=== PATIENT | female | born 1950 | race Caucasian/White ===

== ENCOUNTER 2019-05-11 06:00 | Outpatient (RCR) | payer MEDICARE, SELFPAY | END 2019-06-10 00:01 | LOC: SPT 06:00 | PROVIDERS: Family Provider Family Medicine; Visit Provider Nurse Practitioner Adult Health | DX: Z47.1 Aftercare following joint replacement surgery (principal); Z96.652 Presence of left artificial knee joint | CPT/HCPCS: 97110 ×3 ==

== ENCOUNTER 2019-06-11 06:00 | Outpatient (RCR) | payer MEDICARE, SELFPAY | END 2019-07-11 23:59 | disposition home or self-care (01) | LOC: SPT 06:00 | PROVIDERS: Family Provider Family Medicine; Visit Provider Nurse Practitioner Adult Health | DX: M17.11 Unilateral primary osteoarthritis, right knee (principal) | CPT/HCPCS: 97110 ==

== ENCOUNTER 2019-06-24 15:47 | Outpatient (CLI) | payer MEDICARE, SELFPAY ==
[2019-06-24 18:03] LABS: INR 2.28 (0.8-1.2)
== END 2019-06-24 15:48 | disposition home or self-care (01) ==
LOC: ONCMED 15:47
PROVIDERS: Family Provider Family Medicine; Visit Provider Internal Medicine Medical Oncology
DX: Z51.81 Encounter for therapeutic drug level monitoring (principal); Z79.01 Long term (current) use of anticoagulants
CPT/HCPCS: 36415; 85610

== ENCOUNTER 2019-07-29 01:31 | Emergency (ER) | payer MEDICARE, SELFPAY ==
[2019-07-29 02:28] VITALS: BP 168/89; PULSE 72; RESP 16; TEMP 37; O2SAT 96; BMI 31.1
--- NOTE | 2019-07-29 02:41 | ED_ITS ---
Documented by User: KADY Melton 07/29/19 04:04 HPI - Skin/Abscess/Foreign Bdy General: Chief complaint: Skin/Abscess/Foreign Body Stated complaint: rash Time Seen by Provider: 07/29/19 02:23 History of Present Illness: HPI narrative: Patient is a 69-year-old female comes to the ED with a rash. Patient states that about a week ago she scratched her left forearm and some pain. It was a superficial scratch. It has been healing well but she noticed a little bit of redness around the scar and it's been a little itchy last day or 2. Patient is allergic to adhesive and she does admit to putting a Band-Aid over scratch and thinks of that could've possibly caused a little bit of itching and irritation. Currently it is not itchy at all. She denies any drainage, scratch. Patient denies any fever, chills, nausea, vomiting, shortness breath, chest pain. Associated symptoms: Deny chills, fever(s), nausea or vomiting Review of Systems Const: Denies: fever, chills or fatigue Eyes: Denies: change in vision or eye discomfort ENMT: Denies: throat pain, painful swallowing, nasal discharge or nasal congestion Card: Denies: chest pain, palpitations, edema, swelling of feet/ankles, shortness of breath on exertion or shortness of breath when lying down Resp: Denies: shortness of breath, productive cough or non-productive cough GI: Denies: abdominal pain, nausea, vomiting, diarrhea, constipation or blood in stool : Denies: flank pain, painful urination or blood in urine Musc: Denies: neck pain, back pain or extremity swelling Skin/Breast: Denies: rash or new lesion Neuro: Denies: headache, numbness in extremities or weakness in extremities PFSH ED PFSH: Social History Smoking and tobacco status: never smoked Physical Exam Narrative: EXAM NARRATIVE: Patient is a 69-year-old female who showing no signs of acute distress or pain when i entered the room. She is sitting comfortably and showing no signs of respiratory distress either Const: COMMON NORMALS: oriented x3 HENMT: COMMON NORMALS: normocephalic HEAD & SCALP: normocephalic MOUTH: oral and palatal mucosa normal THROAT: posterior oropharynx normal and uvula midline Neck/C-Spine: COMMON NORMALS: supple GENERAL: Yes normal visual inspection Resp: COMMON NORMALS: normal respiratory effort, no retractions, no use of accessory muscles and clear to auscultation bilaterally AUSCULTATION: clear to auscultation bilaterally Cardio: COMMON NORMALS: regular rate, regular rhythm, S1 normal heart sound, S2 normal heart sound, no gallops, no clicks, no murmurs and peripheral pulses 2+ throughout RATE: regular rate RHYTHM: regular rhythm HEART SOUNDS: S1 normal and S2 normal PERIPHERAL PULSES: pulses 2+ throughout GI: COMMON NORMALS: normal to inspection, nondistended, normoactive bowel sounds, soft to palpation, non-tender and no masses PALPATION: Yes soft : COMMON NORMALS: Yes no CVA tenderness BLADDER/KIDNEY EXAM: Yes no CVA tenderness Back/Pelvis: COMMON NORMALS: no CVA tenderness Extremity: COMMON NORMALS: normal to inspection Neuro: COMMON NORMALS: oriented x3 and moves all extremities Skin: NARRATIVE SKIN EXAM: Patient has a superficial scratch on her left forearm and his healing well and showing no signs of infection. It has a little erythema but no warmth. It is closed and scarring is formed. There is no drainage or open wound. TRAUMA: abrasion (Patient has a superficial scratch on left forearm that is closed and slight) Course Vital Signs: Vital signs: Vital Signs Temperature 98.2 F 07/29/19 03:15 Pulse Rate 84 07/29/19 03:15 Respiratory Rate 16 07/29/19 03:15 Blood Pressure 145/74 07/29/19 03:15 Pulse Oximetry 100 07/29/19 03:15 Discharge Plan Discharge Patient Disposition: Home, Self-Care Clinical Impression: Skin abrasion Condition: Stable Prescriptions: No Action gabapentin 300 mg capsule 300 mg PO TID Qty: 90 RF: 5 Discharge Orders: Discharge Order (Routine); Ordered 07/29/19 Ordered By: Florencio Austin Referrals: Danni Jesus MD [Primary Care Provider] - Discharge Diet: Regular Discharge Activity: Resume usual activity Patient Instructions: Abrasion Activity Restrictions/Additional Instructions: Follow-up with your PCP in 7-10 days. Continue taking all home meds. He can apply hydrocortisone cream on abrasion to help with any itching. Watch for signs of infection such as swelling, redness, warmth, drainage and fevers. Discharge Date/Time: 07/29/19 03:15 Coding Level of Care Code ED Utility Specialist for Chg Fwd Exam Comprehensive Documented by User: Marissa Nelson 07/29/19 20:23 HPI - Skin/Abscess/Foreign Bdy General: Chief complaint: Skin/Abscess/Foreign Body Stated complaint: rash Time Seen by Provider: 07/29/19 02:23 PFS ED PFSH: Social History Smoking and tobacco status: never smoked Course Vital Signs: Vital signs: Vital Signs Temperature 98.2 F 07/29/19 03:15 Pulse Rate 84 07/29/19 03:15 Respiratory Rate 16 07/29/19 03:15 Blood Pressure 145/74 07/29/19 03:15 Pulse Oximetry 100 07/29/19 03:15 MDM - Skin/Abscess/Foreign Bdy MDM Narrative: Medical decision making narrative: Patient was not seen or evaluated by me. I have not reviewed the chart. I am signing it for completion. I was available throughout the patient stay in the ER but was never consulted for care - Dr. Marissa Nelson Discharge Plan Discharge Patient Disposition: Home, Self-Care Clinical Impression: Skin abrasion Condition: Stable Prescriptions: No Action gabapentin 300 mg capsule 300 mg PO TID Qty: 90 RF: 5 Discharge Orders: Discharge Order (Routine); Ordered 07/29/19 Ordered By: Florencio Austin Referrals: Danni Jesus MD [Primary Care Provider] - Discharge Diet: Regular Discharge Activity: Resume usual activity Patient Instructions: Abrasion Activity Restrictions/Additional Instructions: Follow-up with your PCP in 7-10 days. Continue taking all home meds. He can apply hydrocortisone cream on abrasion to help with any itching. Watch for signs of infection such as swelling, redness, warmth, drainage and fevers. Discharge Date/Time: 02/18/20 03:15 Coding Level of Care Code ED Utility Specialist for Chg Fwd Exam Comprehensive
[2019-07-29 03:15] VITALS: BP 145/74; PULSE 84; RESP 16; TEMP 36.8; O2SAT 100
== END 2019-07-29 03:15 | disposition home or self-care (01) ==
PROVIDERS: Emergency Provider Physician Assistant; Family Provider Family Medicine; PCP Family Medicine
DX: S50.812A Abrasion of left forearm, initial encounter (principal); X58.XXXA Exposure to other specified factors, initial encounter; Z91.048 Other nonmedicinal substance allergy status
CPT/HCPCS: 99281

== ENCOUNTER 2019-08-05 15:05 | Outpatient (RCR) | payer MEDICARE, SELFPAY | END 2019-08-09 23:59 | disposition home or self-care (01) | LOC: SPT 15:05 | PROVIDERS: Family Provider Family Medicine; PCP Family Medicine; Referring Provider Chiropractor; Visit Provider Chiropractor | DX: M54.5 Low back pain (principal) | CPT/HCPCS: 97032; 97110; 97161 ==

== ENCOUNTER 2019-08-10 06:00 | Outpatient (RCR) | payer MEDICARE, SELFPAY | END 2019-09-09 23:59 | disposition home or self-care (01) | LOC: SPT 06:00 | PROVIDERS: Family Provider Family Medicine; PCP Family Medicine; Referring Provider Chiropractor; Visit Provider Chiropractor | DX: M54.5 Low back pain (principal) | CPT/HCPCS: 97032; 97110 ==

== ENCOUNTER 2019-08-19 15:37 | Outpatient (CLI) | payer MEDICARE, SELFPAY ==
[2019-08-19 16:21] LABS: INR 4.15 (0.8-1.2)
== END 2019-08-19 15:38 | disposition home or self-care (01) ==
LOC: ONCMED 15:37
PROVIDERS: Family Provider Family Medicine; PCP Family Medicine; Visit Provider Internal Medicine Medical Oncology
DX: Z51.81 Encounter for therapeutic drug level monitoring (principal); I82.502 Chronic embolism and thrombosis of unspecified deep veins of left lower extremity; Z79.01 Long term (current) use of anticoagulants
CPT/HCPCS: 36415; 85610

== ENCOUNTER 2019-09-10 06:00 | Outpatient (RCR) | payer MEDICARE, SELFPAY | END 2019-10-09 23:59 | disposition home or self-care (01) | LOC: SPT 06:00 | PROVIDERS: Family Provider Family Medicine; PCP Family Medicine; Referring Provider Chiropractor; Visit Provider Chiropractor | DX: M54.5 Low back pain (principal) | CPT/HCPCS: 97032; 97110 ==

== ENCOUNTER 2019-09-23 13:38 | Outpatient (CLI) | payer MEDICARE, SELFPAY ==
[2019-09-23 16:48] LABS: INR 1.87 (0.8-1.2)
== END 2019-09-23 13:39 | disposition home or self-care (01) ==
LOC: ONCMED 13:40
PROVIDERS: Family Provider Family Medicine; PCP Family Medicine; Visit Provider Internal Medicine Medical Oncology
DX: Z51.81 Encounter for therapeutic drug level monitoring (principal); Z79.01 Long term (current) use of anticoagulants
CPT/HCPCS: 36415; 85610

== ENCOUNTER 2019-10-10 06:00 | Outpatient (RCR) | payer MEDICARE, SELFPAY | END 2019-11-09 23:59 | disposition home or self-care (01) | LOC: SPT 06:00 | PROVIDERS: PCP Family Medicine; Referring Provider Chiropractor; Visit Provider Chiropractor | DX: M54.5 Low back pain (principal) | CPT/HCPCS: 97032; 97110 ==

== ENCOUNTER 2019-10-23 14:41 | Outpatient (CLI) | payer MEDICARE, SELFPAY ==
[2019-10-23 15:15] LABS: INR 1.24 (0.8-1.2)
== END 2019-10-23 14:42 | disposition home or self-care (01) ==
LOC: ONCMED 14:45
PROVIDERS: PCP Family Medicine; Visit Provider Internal Medicine Medical Oncology
DX: I82.502 Chronic embolism and thrombosis of unspecified deep veins of left lower extremity (principal); Z79.01 Long term (current) use of anticoagulants
CPT/HCPCS: 36415; 85610

== ENCOUNTER 2019-11-06 14:35 | Outpatient (CLI) | payer MEDICARE, SELFPAY ==
[2019-11-06 15:27] LABS: INR 2.02 (0.8-1.2)
== END 2019-11-06 14:36 | disposition home or self-care (01) ==
PROVIDERS: PCP Family Medicine; Visit Provider Internal Medicine Medical Oncology
DX: Z51.81 Encounter for therapeutic drug level monitoring (principal); Z79.01 Long term (current) use of anticoagulants
CPT/HCPCS: 36415; 85610

== ENCOUNTER 2019-11-11 07:17 | Emergency (ER) | payer MEDICARE, SELFPAY ==
[2019-11-11 07:26] VITALS: BMI 50.3
--- NOTE | 2019-11-11 07:30 | ED_ITS ---
HPI - Fall General: Chief Complaint: Fall Stated Complaint: fall/pain l side Time Seen by Provider: 11/11/19 07:18 Source: patient Mode of arrival: EMS Limitations: no limitations History of Present Illness: HPI Narrative: fall while in garden; slipped in wet grass and landed on left side MD complaint: fall Onset (ago): minute(s) (30) Review of Systems General: Reports: 10 or more systems reviewed and unremarkable except in HPI and below Resp: Reports: pain on inspiration Musc: Reports: limited range of motion (left side/ribs ) PFSH ED PFSH: Social History Smoking and tobacco status: never smoked Physical Exam Const: COMMON NORMALS: no acute distress, patient oriented x3, no limitations and alert GENERAL APPEARANCE: cooperative and comfortable ORIENTATION/CONSCIOUSNESS: Yes awake, Yes oriented to person, Yes oriented to place and Yes oriented to time HENMT: COMMON NORMALS: normocephalic, atraumatic, external ears normal, EAC's normal, TM's normal bilaterally and Normal external nose present HEAD & SCALP: normal to inspection, normocephalic and atraumatic FACE & SINUS: normal facial exam, sinuses nontender and face symmetric NOSE: Normal external nose present, Normal nares present and No nasal discharge present EXTERNAL EAR: Yes external ears normal EXTERNAL AUDITORY CANAL: EAC's normal TYMPANIC MEMBRANE: TM's normal bilaterally MOUTH: Normal oral and palatal mucosa present, lip normal and tongue normal THROAT: posterior oropharynx normal, tonsils normal and uvula midline Eye: COMMON NORMALS: Equal, round and reactive pupils present, EOMs intact bilaterally and conjunctivae normal GENERAL EYE: appearance normal, both eyes and all related structures and normal light reflex EYELID: eyelids normal CONJUNCTIVA: Yes conjunctivae normal PUPIL: Yes Equal, round and reactive pupils present EOM: Yes EOM abnormal DIRECT OPHTHALMOSCOPY: Yes normal light reflex Neck/C-Spine: COMMON NORMALS: full ROM, no lymphadenopathy, supple, no meningeal signs, no JVD and Thyroid normal GENERAL: Yes normal visual inspection THYROID: Thyroid normal CERVICAL SPINE: Yes cervical ROM normal and Yes normal cervical lordosis Lymph: LYMPHATIC: no lymphadenopathy noted Chest: COMMONS NORMALS: normal inspection of the chest and normal palpation of entire chest wall CHEST: Yes tenderness rib (left side) Resp: COMMON NORMALS: normal respiratory effort and clear to auscultation bilaterally AUSCULTATION: clear to auscultation bilaterally Cardio: COMMON NORMALS: no JVD, regular rate, regular rhythm, S1 normal heart sound present, S2 normal heart sound present, No gallops present (Cardio), No clicks present (Cardio), No murmurs present (Cardio), No rub (Cardio) and Peripheral pulses 2+ throughout RATE: regular rate RHYTHM: regular rhythm HEART SOUNDS: S1 normal heart sound present and S2 normal heart sound present PERIPHERAL PULSES: Peripheral pulses 2+ throughout GI: COMMON NORMALS: Normal to inspection, nondistended, normoactive bowel sounds present, Soft to palpation, non-tender and no masses PALPATION: Yes Soft to palpation : COMMON NORMALS: Yes no CVA tenderness and Yes normal external appearance BLADDER/KIDNEY EXAM: Yes no CVA tenderness Back/Pelvis: COMMON NORMALS: no CVA tenderness, thoracic and lumbar spine normal to inspection, no thoracic nor lumbar tenderness and thoraco-lumbar ROM normal Extremity: COMMON NORMALS: normal to inspection, full ROM, capillary refill normal, no joint enlargement, no clubbing, cyanosis or edema, no calf tenderness and no pedal edema GENERAL: Yes normal exam except as noted Neuro: COMMON NORMALS: patient oriented x3, moves all extremities, no focal motor deficits, no sensory deficits noted and gait normal SENSORIUM/ORIENTATION: Yes alert, Yes oriented to person, Yes oriented to place and Yes oriented to time MENINGEAL SIGNS: Yes no meningeal signs Psych: COMMON NORMALS: mental status grossly normal, Normal thought process present, cooperative, normal affect, speech normal and activity/motor behavior normal SPEECH: Yes normal speech THOUGHT PROCESS: Normal thought process present Skin: COMMON NORMALS: no rashes or lesions noted, no wounds and turgor normal GENERAL SKIN EXAM: no rashes or lesions noted and turgor normal Course ED course: Pt presents via EMS due to fall and sensation of cracking with fall in left side. She has some notable splinting with breathing due to pain. XRAY ordered and pain medications. Reevaluation(s): Reevaluation #1: 7th rib fx indicated per xray. Deep breathing exercises with splinting noted. Muscle relaxers prescribed. Will have follow up with PCP within the week for possible OT as needed. Time: 08:22 Vital Signs: Vital signs: Vital Signs Pulse Rate 69 06//20 08:17 Respiratory Rate 16 11/11/19 08:17 Blood Pressure 128/83 11/11/19 08:17 Pulse Oximetry 99 11/11/19 08:17 MDM - Fall Imaging Data^: Xray Ortho: Radiologist's impression: [facility] [address] [place] [address] XRay Report Signed Patient: Radha Vega Unit #: [id number] : 1950 Age/Sex: 69 / F ADM Date: 11/11/19 Loc: ER Room/Bed: Attending Dr: Ordering Provider/Ordering MD: Paige Horton NP Date of Service: 11/11/19 Procedure(s): XR ribs LT 2V* [id number] Accession Number(s): [id number] Report Number: [id number] WS: [id number] XR ribs LT 2V* [id number] REASON FOR EXAM: fall FINDINGS: Left rib study 4 views No pneumothorax or pleural reaction. The alignment of the left ribs show the seventh rib at its angle shows a defect consistent with a nondisplaced fracture. XR/XR ribs LT 2V* [id number] IMPRESSION: Fracture of the seventh rib at its angle. Dictated By: Luiz Nice DO Signed By: Luiz Nice DO Signed Date/Time: 11/11/19804 DD/ 0803 Discharge Plan Discharge Patient Disposition: Home, Self-Care Clinical Impression: Fracture of rib Condition: Stable Prescriptions: New cyclobenzaprine 10 mg tablet 10 mg PO Q8H Qty: 20 RF: 0 No Action gabapentin 300 mg capsule 300 mg PO TID Qty: 90 RF: 5 lamotrigine [Lamictal] 200 mg tablet 200 mg PO BID Qty: 315 RF: 5 warfarin 10 mg tablet RF: 0 Referrals: Danni Jesus MD [Primary Care Provider] - Discharge Diet: Advance as tolerated Discharge Activity: Increase activity as tolerated Activity Restrictions/Additional Instructions: Splinting with pillow, deep breathing exercises. Follow up with Primary Doctor within week. Coding Level of Care Code ED Custom Ski Maker for Chg Fwd Exam Comprehensive
--- NOTE | 2019-11-11 07:37 | XR_ITS ---
WS: [id number] XR ribs LT 2V* [id number] REASON FOR EXAM: fall FINDINGS: Left rib study 4 views No pneumothorax or pleural reaction. The alignment of the left ribs show the seventh rib at its angle shows a defect consistent with a non displaced fracture. XR/XR ribs LT 2V* [id number] IMPRESSION: Fracture of the seventh rib at its angle.
[2019-11-11] MEDS: orphenadrine 30 mg/mL Inj 2 mL 60 MG IM (08:15)
[2019-11-11] MEDS: ketorolac 30 mg/mL INJ IM (08:15)
[2019-11-11 08:17] VITALS: BP 128/83; PULSE 69; RESP 16; O2SAT 99
[2019-11-11 08:44] VITALS: BP 142/78; PULSE 68; RESP 20; O2SAT 97
== END 2019-11-11 08:38 | disposition home or self-care (01) ==
PROVIDERS: Emergency Provider Nurse Practitioner Family; PCP Family Medicine
DX: S22.32XA Fracture of one rib, left side, initial encounter for closed fracture (principal); W01.0XXA Fall on same level from slipping, tripping and stumbling without subsequent striking against object, initial encounter
CPT/HCPCS: 12345; 71100; 96372; 99282; 99283; J1885; J2360

== ENCOUNTER 2019-12-01 12:51 | Outpatient (CLI) | payer MEDICARE, SELFPAY ==
[2019-12-01 13:25] LABS: Basophils % 0.3 %; Eosinophils # 0.4 10^3/uL (0.0-0.8); Eosinophils % 5.5 %; Hematocrit 38.8 % (37.0-47.0); Hemoglobin 12.2 g/dL (11.5-15.3); Lymphocytes # 0.9 10^3/uL (0.8-4.8); Lymphocytes % 11.9 %; Mean Corpuscular HGB Conc 31.4 g/dL (30.0-36.0); Mean Corpuscular Hemoglobin 29.8 pg (28.0-34.0); Mean Corpuscular Volume 94.6 fL (81-99); Mean Platelet Volume 9.5 fL (7.4-10.4); Monocytes # 0.6 10^3/uL (0.2-0.9); Monocytes % 7.7 %; Neutrophils # 5.3 10^3/uL (1.8-7.7); Nucleated Red Blood Cells % 0 %; Platelet Count 277 10^3/cmm (130-400); Red Cell Distribution Width 15.5 % (12.1-15.1); White Blood Count 7.2 10^3/uL (4.0-10.0)
[2019-12-01 13:31] LABS: INR 3.48 (0.8-1.2)
[2019-12-01 13:38] LABS: Alanine Aminotransferase 18 U/L (0-33); Alkaline Phosphatase 99 IU/L (35-105); Anion Gap 17.1 (5-19); Aspartate Amino Transferase 19 U/L (0-32); Blood Urea Nitrogen 12 mg/dL (8-23); Calcium 9.7 mg/dL (8.5-10.5); Carbon Dioxide 25 mmol/L (22-29); Chloride 103 mmol/L (98-107); Globulin 3.6 g/dL (1.3-4.6); Glomerular Filtration Rate 70.9 mL/min (90-130); Glucose 98 mg/dL (65-115); Osmolality Calculated 288 mOsm/kg (285-295); Potassium 4.1 mmol/L (3.5-5.1); Sodium 141 mmol/L (136-145); Total Bilirubin 0.3 mg/dL (0.15-1.2); Total Protein 7.6 g/dL (6.6-8.7)
--- NOTE | 2019-12-05 06:47 | ONC FU_ITS ---
Dr. Sharma Patient Follow-Up Note Patient: Radha Vega Unit #: [id number]: 1950 Dicatated By: Brendan Sharma M.D.Date of Visit:Dec 01, 2019 Onc Med Follow-up/Prog Note Chief Complaint: Recurrent thrombosis. History of Present Illness: This is a 69 year-old woman with recurrent deep vein thrombosis. She has a history of recurrent deep vein thrombosis. She had blood clots in her left leg in 1994, 1995, and in 1999. She indicated that she was found to have protein C or S deficiency (she couldn't remember which), though I could find no actual documentation of it in the available records. I had seen her initially on 02/07/2016 because she was having difficulty with her warfarin management. Her main complaint at that time was that she had been having difficulty with her left knee. She had originally undergone partial knee replacement in 2007. She then underwent revision to a total knee arthroplasty in June 2011. She required replacement of the joint again in November 2014, reportedly because of osteomyelitis. She had recovered gradually following that procedure. During that time she had continued anticoagulation with warfarin. However, her protimes had fluctuated significantly, and her INR frequently was subtherapeutic. Despite that she had no further thrombosis, and she experienced no bleeding complications. I reviewed options for her further anticoagulation, and she preferred to just continue with the warfarin. Following her visit in January 2016 her warfarin dosage was adjusted upward, and her subsequent INRs had mostly been in therapeutic range. Her medical history, in addition to recurrent thrombosis, includes hypertension, trigeminal neuralgia, and degenerative arthritis. In February 2018 she underwent left total knee arthroplasty. She had no bleeding or thrombotic complications with that procedure. She has only a minimal smoking history, and she quit smoking in 1989. INTERIM HISTORY: She is seen for a scheduled visit. She has been feeling pretty good generally, though recently she has noticed a little more bruising. She has been having pain in her back and in her left rib cage associated with a recent fall. She apparently suffered a fractured left seventh rib. Her energy level is generally pretty good, and she otherwise has mostly normal activity. Her ECOG score is 0. She has good appetite. She has not had fever. She sometimes is aware that she has had sweating during the night. She does not complain of shortness of breath or cough, and she otherwise has not had chest pain. She has no GI or complaints. She has some arthritis in her hands and feet. She has no focal neurologic symptoms, but she has noticed that she has had some shaking in her hands, particularly when she is holding a heavier object. Medications: Biotin 1 Tablet (of 5000 mcg) Capsule Oral daily, Calcium + D Tablet Oral daily, Coumadin (12.5 mg) Oral Take as Directed, Gabapentin (300 mg) Capsule Oral Take as Directed, LaMICtal (200 mg) Tablet Oral Take as Directed, Magnesium 1 Capsule Oral daily, Multivitamin Adult 1 Tablet Oral daily Allergies: Adhesive Tape and Codeine Sulfate. Review of Systems: Constitutional - She energy is good. She has mostly normal activity. Her appetite is good and weight is stable. No fever. She has been waking up in the mornings and feels like she's been sweating through the night. ECOG score is 0, ENMT - She has seasonal allergies. No mouth sores. No sore throat or difficulty swallowing, Hematologic/Lymphatic - She bruises easily, Respiratory - No shortness of breath. No cough. No pleuritic pain or hemoptysis, Cardiovascular - No angina pain. No palpitations, Gastrointestinal - No nausea or vomiting. No heartburn or acid reflux. No diarrhea or constipation. No blood in the stool or black stools, Genitourinary (F) - No dysuria or hematuria. No urinary frequency. No urgency or incontinence, Musculoskeletal - She has pain in her left rib area and in her lower back from a fall. She has some arthritis in her hands and feet, Integumentary - No skin complications, Neurologic - No headache or dizziness. No numbness or tingling. She is having shaking in her hands, which she notices mainly when she is holding something in her hands, Psychiatric - No anxiety. She is seeing a therapist for depression. No insomnia. Vital Signs: Performed on Dec 01, 2019 15:19 Height - 62.00 in Weight - 274.8 lbs (HIGH) BSA - 2.19 sq.m BMI - 50.26 (HIGH) Temperature - 98.0 F (LOW) Pulse - 81 /min Respiration - 24 /min BP - 137/68 mm(hg) O2 Sat - 97 % Pain - 2 Physical Examination: Constitutional - She looks pretty good generally, Eyes - Sclerae nonicteric. Conjunctivae clear, ENMT - No lesions noted in the oral cavity, Hematologic/Lymphatic - No cervical, clavicular, or axillary adenopathy, Respiratory - Lungs are clear with good air movement bilaterally, Cardiovascular - Heart rhythm is regular. There is no murmur, gallop, or rub noted, Abdomen - Distended. Liver and spleen are not enlarged. There is no abdominal mass or ascites noted and there is no inguinal adenopathy, Extremities - There are venous stasis changes bilaterally, worse on the left. There is no edema, Neurologic - No focal neurologic deficits noted. Lab/Imaging: Test performed on Dec 01, 2019 13:02 Sodium 141 mmol/L Potassium 4.1 mmol/L Chloride 103 mmol/L CO2 25 mmol/L Anion Gap 17.1 BUN 12 mg/dL Creatinine 0.8 mg/dL Cr Clearance (Est) 128.76 mL/min eGFR 70.9 mL/min Glucose 98 mg/dL Calcium 9.7 mg/dL Protein, Total 7.6 g/dL Albumin 4.0 g/dL Globulin 3.6 g/dL Bilirubin, Total 0.3 mg/dL ALT (SGPT) 18 U/L AST (SGOT) 19 U/L Alkaline Phosphatase 99 IU/L PT 36.30 SECONDS WBC 7.2 10 3/uL INR 3.48 RBC 4.10 10 6/uL HGB 12.2 g/dL HCT 38.8 % MCV 94.6 fL MCH 29.8 pg MCHC 31.4 g/dL RDW 15.5 % Platelet Count 277 10 3/cmm MPV 9.5 fL Neutrophils 5.3 10 3/uL Lymphocytes 0.9 10 3/uL Monocytes 0.6 10 3/uL Eosinophils 0.4 10 3/uL Basophils 0.0 10 3/uL Neutrophil % 74.0 % Lymphocyte % 11.9 % Monocyte % 7.7 % Eosinophil % 5.5 % Basophils % 0.3 % NRBC % 0 % Impression: 1. Patient with recurrent episodes of deep vein thrombosis, all apparently involving the left leg. 2. She has been on chronic anticoagulation with warfarin, but her management has been complicated by inconsistent protimes. However, she has had no recent thrombosis and no bleeding complications. 3. She indicated that she has protein C or protein S deficiency, but I found no supporting documentation in the available records. 4. She has undergone mulitple surgeries on the left knee, reportedly for osteomyelitis complicating a revision to a total knee arthroplasty in June 2011. 5. She underwent placement of an inferior vena cava filter prior to knee surgery in June 2011. Her other medical illnesses include: 6. Hypertension. 7. Degenerative arthritis. 8. Trigeminal neuralgia. 9. She has mild anemia. During follow-up she has remained on anticoagulation with warfarin. Her pro times have mostly been therapeutic, and thus far she has had no further thromboembolism. 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 She also had a recent left rib fracture in association with a fall. She has otherwise been stable clinically. Plan: She continues anticoagulation with warfarin. Pro times will be monitored monthly and her dosage will be adjusted accordingly. I will see her again in one year. In the meantime, she is let me know if the tremor is getting worse. Signed By: Brendan Sharma M.D. <<Signature on File>>
== END 2019-12-01 12:52 | disposition home or self-care (01) ==
LOC: ONCMED 12:55
PROVIDERS: PCP Family Medicine; Visit Provider Internal Medicine Medical Oncology
DX: Z86.718 Personal history of other venous thrombosis and embolism (principal); Z79.01 Long term (current) use of anticoagulants; D64.9 Anemia, unspecified; G25.2 Other specified forms of tremor; S22.32XD Fracture of one rib, left side, subsequent encounter for fracture with routine healing; W19.XXXD Unspecified fall, subsequent encounter; I10 Essential (primary) hypertension; M19.90 Unspecified osteoarthritis, unspecified site; G50.0 Trigeminal neuralgia
CPT/HCPCS: 80053; 85025; 85610; 99214

== ENCOUNTER → 2019-12-02 09:04 | Outpatient (BNVA) | payer MEDICARE, SELFPAY | PROVIDERS: Visit Provider Specialist | DX: G50.0 Trigeminal neuralgia (principal); R29.90 Unspecified symptoms and signs involving the nervous system | CPT/HCPCS: 99212; 99213 ==

== ENCOUNTER 2019-12-04 13:44 | Outpatient (CLI) | payer MEDICARE, SELFPAY | END 2019-12-04 13:45 | disposition home or self-care (01) | PROVIDERS: Visit Provider Specialist | DX: G50.0 Trigeminal neuralgia (principal) | CPT/HCPCS: 36415; 80175 ==

== ENCOUNTER 2020-01-06 13:55 | Outpatient (CLI) | payer MEDICARE, SELFPAY ==
[2020-01-06 15:01] LABS: INR 1.99 (0.8-1.2)
== END 2020-01-06 13:56 | disposition home or self-care (01) ==
LOC: ONCMED 14:02
PROVIDERS: Visit Provider Internal Medicine Medical Oncology
DX: Z51.81 Encounter for therapeutic drug level monitoring (principal); Z79.899 Other long term (current) drug therapy; Z86.718 Personal history of other venous thrombosis and embolism
CPT/HCPCS: 85610

== ENCOUNTER 2020-01-06 14:03 | Outpatient (CLI) | payer MEDICARE, SELFPAY ==
[2020-01-06 14:51] LABS: Basophils % 0.5 %; Eosinophils # 0.3 10^3/uL (0.0-0.8); Eosinophils % 3.9 %; Hematocrit 38.2 % (37.0-47.0); Hemoglobin 11.9 g/dL (11.5-15.3); Lymphocytes # 0.9 10^3/uL (0.8-4.8); Lymphocytes % 13.7 %; Mean Corpuscular HGB Conc 31.2 g/dL (30.0-36.0); Mean Corpuscular Hemoglobin 29.2 pg (28.0-34.0); Mean Corpuscular Volume 93.9 fL (81-99); Mean Platelet Volume 9.9 fL (7.4-10.4); Monocytes # 0.5 10^3/uL (0.2-0.9); Monocytes % 8.4 %; Neutrophils # 4.69 10^3/uL (1.8-7.7); Nucleated Red Blood Cells % 0 %; Platelet Count 274 10^3/cmm (130-400); Red Blood Count 4.07 10^6/uL (4.1-5.3); Red Cell Distribution Width 15.3 % (12.1-15.1); White Blood Count 6.4 10^3/uL (4.0-10.0)
[2020-01-06 15:36] LABS: Alanine Aminotransferase 14 U/L (0-33); Albumin Level 4.1 g/dL (3.5-5.2); Alkaline Phosphatase 81 IU/L (35-105); Anion Gap 15.1 (5-19); Aspartate Amino Transferase 18 U/L (0-32); Blood Urea Nitrogen 16 mg/dL (8-23); Calcium 9.4 mg/dL (8.5-10.5); Carbon Dioxide 24 mmol/L (22-29); Chloride 104 mmol/L (98-107); Chol HDL Ratio 4.07 mg/dL (0.0-4.40); Cholesterol 175 mg/dL (0-200); Free T4 Free Thyroxine 1.08 ng/dL (0.82-1.77); Globulin 3.2 g/dL (1.3-4.6); Glucose 85 mg/dL (65-115); HDL Cholesterol 43 mg/dL (60-100); LDL Cholesterol Calculated 106 mg/dL (50-129); LDL HDL Ratio 2.47 RATIO (0.00-3.22); Osmolality Calculated 284 mOsm/kg (285-295); Potassium 4.1 mmol/L (3.5-5.1); Sodium 139 mmol/L (136-145); Total Bilirubin 0.2 mg/dL (0.15-1.2); Total Protein 7.3 g/dL (6.6-8.7); Triglycerides 131 mg/dL (0-150)
[2020-01-06 17:11] LABS: Estmated Average Glucose 120; Hemoglobin A1C 5.8 % (4.0-6.0)
== END 2020-01-06 14:04 | disposition home or self-care (01) ==
LOC: LAB 14:06
PROVIDERS: Visit Provider Internal Medicine
DX: R73.9 Hyperglycemia, unspecified (principal); E78.5 Hyperlipidemia, unspecified; R53.83 Other fatigue
CPT/HCPCS: 80053; 80061; 83036; 84439; 84443; 85025

== ENCOUNTER 2020-03-04 09:54 | Outpatient (CLI) | payer MEDICARE, SELFPAY ==
--- NOTE | 2020-03-04 10:13 | MM_ITS ---
WS: [id number] SCREENING DIGITAL MAMMOGRAM WITH CAD HISTORY: SCREEN COMPARISON: 03/05/2017 and 06/23/2015 Bilateral CC and MLO views submitted. Computer aided detection analyzed. Breast composition: There are scattered areas of fibroglandular density. High density nodule in the a nterior RIGHT breast near the 3:00 axis is new since the prior examination. There are additional scat tered nodules throughout each breast which are stable. Benign lymph nodes in the axilla. MM/[place] [id number] IMPRESSION: BI-RADS: 0-Incomplete: Need additional imaging evaluation FOLLOW UP: Need Additional Imaging RIGHT breast: Spot compression views (CC and MLO). True ML. Ultrasound to follo w if abnormality persists.
[2020-03-04 11:10] LABS: INR 3.43 (0.8-1.2)
== END 2020-03-04 09:55 | disposition home or self-care (01) ==
PROVIDERS: PCP Internal Medicine; Visit Provider Internal Medicine Medical Oncology
DX: Z12.31 Encounter for screening mammogram for malignant neoplasm of breast (principal); Z79.01 Long term (current) use of anticoagulants; N63.12 Unspecified lump in the right breast, upper inner quadrant
CPT/HCPCS: 36415; 77067; 85610

== ENCOUNTER 2020-03-11 11:16 | Outpatient (CLI) | payer MEDICARE, SELFPAY ==
--- NOTE | 2020-03-11 11:20 | US_ITS ---
WS: [id number] ADDITIONAL VIEWS RIGHT BREAST RIGHT breast ultrasound, limited HISTORY: ABNORMAL MAMMOGRAM COMPARISON: 03/04/2020, 03/05/2017 Compression views right CC and MLO projection. True ML also submitted. Persistent lobulated mass central to the nipple measures 7 mm. Mass is of increased density in the an terior breast. Ultrasound to follow. RIGHT breast ultrasound, limited. At the 1:00 axis, 1 cm from the nipple is a lobulated soft tissue mass measuring 6 x 5 x 5 mm. Corres ponds to the mammographic abnormality. There is an additional small cyst at 3:00. US/US breast RT limited* [id number] IMPRESSION: BI-RADS: 4-Suspicious Finding-Biopsy Should Be Considered FOLLOW-UP: Biopsy Recommended Ultrasound-guided biopsy recommended of the lobulated soft tissue mass 1:00, 1 cm from the nipple.
== END 2020-03-11 11:17 | disposition home or self-care (01) ==
LOC: ONCMED 11:16
PROVIDERS: PCP Internal Medicine; Visit Provider Internal Medicine Medical Oncology
DX: N60.01 Solitary cyst of right breast (principal)
CPT/HCPCS: 76642; 77065

== ENCOUNTER 2020-03-22 11:36 | Outpatient (CLI) | payer MEDICARE, SELFPAY ==
--- NOTE | 2020-03-22 11:44 | US_ITS ---
WS: [id number] ULTRASOUND-GUIDED RIGHT BREAST BIOPSY HISTORY: BREAST MASS, 1:00. COMPARISON: 03/11/2020, 03/04/2020. Procedure, risks and complications are explained to the patient. Medications are reviewed. Consent is obtained. The mass in the RIGHT breast is localized with ultrasound. Mass localizes to 1:00, 1 cm from the nipp le. Skin is cleansed with ChloraPrep and anesthetized with 1% buffered lidocaine. Small dermatome is made. Under sterile conditions mass is biopsied with a 14-gauge Achieve needle. Multiple core biopsie s are performed. Material placed in formalin and sent to pathology for review. No complications encou ntered. Breast tissue marker (Bard ultrasound enhanced ribbon): Single. Patient left the radiology suite with no complications. [place] is instructed [place] [facility] [facility] with any concerns. Note: Biopsy sampling is appropriate. Pathology report indicates correlation with imaging findings an d possible additional sampling if there is concern. This is a solid mass. As the imaging and patholog ical findings are not conclusive suggest 6 month RIGHT breast diagnostic follow-up. Alternatively, lo calization and surgical removal may also be performed. US/[place] [id number] IMPRESSION: 1. Uncomplicated core needle biopsy RIGHT breast mass at 1:00. PATHOLOGY: Usual ductal hyperplasia and apocrine metaplasia. No invasive carcin slade or ductal carcinoma in situ. RECOMMENDATION: 6 months diagnostic mammogram and ultrasound follow-up.
== END 2020-03-22 11:37 | disposition home or self-care (01) ==
LOC: RAD 11:41
PROVIDERS: PCP Internal Medicine; Visit Provider Internal Medicine
DX: N63.12 Unspecified lump in the right breast, upper inner quadrant (principal)
CPT/HCPCS: 19083; 88305

== ENCOUNTER 2020-04-03 10:35 | Emergency (ER) | payer MEDICARE, SELFPAY ==
[2020-04-03 11:46] VITALS: BP 164/117; PULSE 84; RESP 18; TEMP 36.5; O2SAT 96; BMI 52.7
--- NOTE | 2020-04-03 13:37 | ED_ITS ---
HPI - General Adult General: Chief complaint: General Medical Stated complaint: Nerve Pain/Trigeminal Nerve Time Seen by Provider: 04/03/20 13:18 History of Present Illness: HPI narrative: Patient is a 70-year-old female comes to the ED with trigeminal neuralgia on the right side of face. Patient says she has had this in the past. It started 7 days ago. Patient takes gabapentin, Lamictal to help with trigeminal neuralgia. She just started taking prescription of methylprednisone Dosepak today. Pain is located on the right side of face maxillary and mandible area of jaw. He says that tender to the touch. She describes the pain as sharp and rates it a 10 out of 10. She says over the last 24 hours pain has gotten worse. She says the pain is so intense that she cannot open her mouth and take her pills. Patient would like something to help take edge off of pain to allow her to take her medications orally. Denies any problems breathing, airway obstruction, throat pain or swelling in the throat. Associated symptoms: Deny chest pain, dyspnea, headache(s), nausea, rash, palpitations or vomiting Review of Systems Const: Denies: fever(s), chills or fatigue Eyes: Denies: change in vision or eye discomfort ENMT: Reports: sinus pain (Right side of face over maxillary and mandible region.); Denies: throat pain, odynophagia, nasal discharge or nasal congestion Card: Denies: chest pain, palpitations, edema, swelling of feet/ankles, dyspnea on exertion or orthopnea Resp: Denies: dyspnea, productive cough or non-productive cough GI: Denies: abdominal pain, nausea, vomiting, diarrhea, constipation or hematochezia : Denies: flank pain, dysuria or hematuria Musc: Denies: neck pain, back pain or extremity swelling Skin/Breast: Denies: rash or new lesions Neuro: Reports: other (trigeminal Neuralgia pain on Right side of face.); Denies: headache(s), numbness in extremities or weakness in extremities PFSH ED PFSH: Social History Smoking and tobacco status: former smoker Quit status (tobacco): has quit using tobacco Year quit tobacco: 1970 Second hand smoke exposure: Yes Alcohol intake: current Alcohol intake frequency: holidays/special occasions only History of recent travel: No Physical Exam Const: COMMON NORMALS: no acute distress, patient oriented x3 and alert GENERAL APPEARANCE: cooperative; not comfortable (Patient appeared in some pain and discomfort to to right face pain.) HENMT: COMMON NORMALS: normocephalic HEAD & SCALP: normocephalic FACE & SINUS: other (Patient has facial tenderness along maxillary mandible region of face. Pain is described as sharp when touched. No erythema warmth or rash seen over right side of face) MOUTH: Normal oral and palatal mucosa present THROAT: posterior oropharynx normal and uvula midline Neck/C-Spine: COMMON NORMALS: supple GENERAL: Yes normal visual inspection Resp: COMMON NORMALS: normal respiratory effort, No retractions, No use of accessory muscles and clear to auscultation bilaterally AUSCULTATION: clear to auscultation bilaterally Cardio: COMMON NORMALS: regular rate, regular rhythm, S1 normal heart sound present, S2 normal heart sound present, No gallops present (Cardio), No clicks present (Cardio), No murmurs present (Cardio) and Peripheral pulses 2+ throughout RATE: regular rate RHYTHM: regular rhythm HEART SOUNDS: S1 normal heart sound present and S2 normal heart sound present PERIPHERAL PULSES: Peripheral pulses 2+ throughout GI: COMMON NORMALS: Normal to inspection, nondistended, normoactive bowel sounds present, Soft to palpation, non-tender and no masses PALPATION: Yes Soft to palpation : COMMON NORMALS: Yes no CVA tenderness BLADDER/KIDNEY EXAM: Yes no CVA tenderness Back/Pelvis: COMMON NORMALS: no CVA tenderness Extremity: COMMON NORMALS: normal to inspection Neuro: COMMON NORMALS: patient oriented x3 and moves all extremities SENSORIUM/ORIENTATION: Yes alert Skin: GENERAL SKIN EXAM: dry skin Course Vital Signs: Vital signs: Vital Signs Temperature 97.7 F 04/03/20 11:46 Pulse Rate 84 04/03/20 11:46 Respiratory Rate 18 04/03/20 14:36 Blood Pressure 164/117 04/03/20 11:46 Pulse Oximetry 96 04/03/20 11:46 MDM - General Adult MDM Narrative: Medical decision making narrative: Patient is a 70-year-old female who comes to the ED with right side of face pain. Patient has a past medical history of trigeminal neuralgia and sees Dr. Marie for management. Patient takes gabapentin, Lamictal for trigeminal neuralgia. She just started Medrol Dosepak yesterday to help treat the trigeminal neuralgia. Patient comes in to the ED today because pain is preventing her from opening and her mouth and swallowing her pills. She needed something to help take the edge off of pain. Patient was given a 4 mg shot of IM morphine and her pain improved. She was able to take her meds p.o. and she was discharged. Return to ED precautions given. Follow-up with PCP in 7 to 10 days. Patient understood and agreed with plan. Discharge Plan Discharge Patient Disposition: Home Clinical Impression: Trigeminal neuralgia of right side of face Condition: Stable Prescriptions: No Action calcium carbonate [Calcium 600] 600 mg calcium (1,500 mg) tablet 600 mg PO DAILY RF: 0 magnesium 250 mg tablet 250 mg PO DAILY RF: 0 biotin 1 mg capsule 1 mg PO DAILY RF: 0 lamotrigine [Lamictal] 200 mg tablet 200 mg PO .COMPLEX Qty: 225 RF: 3 gabapentin 300 mg capsule 300 mg PO TID Qty: 300 RF: 3 gabapentin 300 mg capsule 300 mg PO TID 90 Days Qty: 360 RF: 3 warfarin 10 mg tablet RF: 0 cyclobenzaprine 10 mg tablet 10 mg PO Q8H Qty: 20 RF: 0 Discharge Orders: Discharge Order (Routine); Ordered 04/03/20 Ordered By: Florencio Austin Referrals: Deedee Hernandes DO [Primary Care Provider] - Discharge Diet: Regular Discharge Activity: Increase activity as tolerated Patient Instructions: Trigeminal Neuralgia (ED) Activity Restrictions/Additional Instructions: Follow-up with medical provider as directed in 5 to 7 days. Continue taking your home medications as previously prescribed. Return to the ER or your medical provider if condition worsens. Please read and understand discharge instructions. If any questions, please ask. Discharge Date/Time: 04/03/20 14:43 Coding Level of Care Code ED Windows [employer] for Lakesha Fwvishnu Exam Comprehensive
[2020-04-03 14:36] VITALS: RESP 18
[2020-04-03] MEDS: morphine 4 mg/mL SDV 1 mL IM (14:36)
== END 2020-04-03 14:43 | disposition home or self-care (01) ==
PROVIDERS: Emergency Provider Physician Assistant; PCP Internal Medicine
DX: G50.0 Trigeminal neuralgia (principal); Z79.01 Long term (current) use of anticoagulants; Z87.891 Personal history of nicotine dependence
CPT/HCPCS: 12345; 96372; 99281; 99283; J2270

== ENCOUNTER → 2020-04-21 09:24 | Outpatient (BNVA) | payer MEDICARE, SELFPAY | PROVIDERS: PCP Internal Medicine; Visit Provider Specialist | DX: G50.0 Trigeminal neuralgia (principal); Z87.891 Personal history of nicotine dependence | CPT/HCPCS: 99214; 99215 ==

== ENCOUNTER → 2020-05-13 11:20 | Outpatient (BNVA) | payer MEDICARE, SELFPAY | PROVIDERS: PCP Internal Medicine; Visit Provider Specialist | DX: G43.711 Chronic migraine without aura, intractable, with status migrainosus (principal); G50.0 Trigeminal neuralgia; Z87.891 Personal history of nicotine dependence | CPT/HCPCS: 64615; 99214 ==

== ENCOUNTER 2020-05-18 14:59 | Outpatient (CLI) | payer MEDICARE, SELFPAY ==
[2020-05-18 15:44] LABS: INR 1.64 (0.8-1.2)
[2020-05-18 17:20] LABS: Carbamazepine Tegretol 9.8 ug/mL (4.0-12.0)
== END 2020-05-18 15:00 | disposition home or self-care (01) ==
LOC: ONCMED 15:02
PROVIDERS: PCP Internal Medicine; Visit Provider Specialist
DX: Z51.81 Encounter for therapeutic drug level monitoring (principal); Z79.01 Long term (current) use of anticoagulants; G50.0 Trigeminal neuralgia
CPT/HCPCS: 36415; 80156; 85610

== ENCOUNTER 2020-05-26 15:24 | Outpatient (CLI) | payer MEDICARE, SELFPAY ==
[2020-05-26 16:17] LABS: Basophils % 0.3 %; Eosinophils # 0.3 10^3/uL (0.0-0.8); Eosinophils % 4.4 %; Hematocrit 39.5 % (37.0-47.0); Hemoglobin 12.4 g/dL (11.5-15.3); Lymphocytes # 0.9 10^3/uL (0.8-4.8); Lymphocytes % 12.9 %; Mean Corpuscular HGB Conc 31.4 g/dL (30.0-36.0); Mean Corpuscular Hemoglobin 29.7 pg (28.0-34.0); Mean Corpuscular Volume 94.5 fL (81-99); Mean Platelet Volume 9.8 fL (7.4-10.4); Monocytes # 0.5 10^3/uL (0.2-0.9); Neutrophils # 4.93 10^3/uL (1.8-7.7); Neutrophils % 75.1 %; Nucleated Red Blood Cells % 0 %; Platelet Count 260 10^3/cmm (130-400); Red Blood Count 4.18 10^6/uL (4.1-5.3); White Blood Count 6.6 10^3/uL (4.0-10.0)
[2020-05-26 16:29] LABS: Alanine Aminotransferase 16 U/L (0-33); Anion Gap 13.2 (5-19); Blood Urea Nitrogen 15 mg/dL (8-23); Calcium 9.9 mg/dL (8.5-10.5); Carbon Dioxide 28 mmol/L (22-29); Chloride 103 mmol/L (98-107); Glucose 96 mg/dL (65-115); Osmolality Calculated 291 mOsm/kg (285-295); Potassium 4.2 mmol/L (3.5-5.1); Sodium 140 mmol/L (136-145)
[2020-05-26 17:23] LABS: Carbamazepine Tegretol 9.7 ug/mL (4.0-12.0)
== END 2020-05-26 15:25 | disposition home or self-care (01) ==
LOC: LAB 15:30
PROVIDERS: PCP Internal Medicine; Visit Provider Specialist
DX: G50.0 Trigeminal neuralgia (principal)
CPT/HCPCS: 36415; 80048; 80156; 84460; 85025

== ENCOUNTER → 2020-05-27 11:07 | Outpatient (BNVA) | payer MEDICARE, SELFPAY | PROVIDERS: PCP Internal Medicine; Visit Provider Specialist | DX: G50.0 Trigeminal neuralgia (principal); Z87.891 Personal history of nicotine dependence | CPT/HCPCS: 99214 ==

== ENCOUNTER 2020-06-21 14:56 | Outpatient (CLI) | payer MEDICARE, SELFPAY ==
[2020-06-21 15:57] LABS: INR 1.27 (0.8-1.2)
== END 2020-06-21 14:57 | disposition home or self-care (01) ==
LOC: ONCMED 15:00
PROVIDERS: PCP Internal Medicine; Visit Provider Internal Medicine Medical Oncology
DX: Z51.81 Encounter for therapeutic drug level monitoring (principal); Z79.01 Long term (current) use of anticoagulants
CPT/HCPCS: 36415; 85610

== ENCOUNTER 2020-07-06 11:40 | Outpatient (CLI) | payer MEDICARE, SELFPAY ==
[2020-07-06 12:37] LABS: INR 1.23 (0.8-1.2)
== END 2020-07-06 11:41 | disposition home or self-care (01) ==
PROVIDERS: Internal Medicine Medical Oncology; PCP Internal Medicine; Visit Provider Nurse Practitioner
DX: Z51.81 Encounter for therapeutic drug level monitoring (principal); Z79.01 Long term (current) use of anticoagulants
CPT/HCPCS: 36415; 73560; 73565; 85610

== ENCOUNTER 2020-08-18 14:16 | Outpatient (CLI) | payer MEDICARE, SELFPAY ==
[2020-08-18 15:00] LABS: INR 1.47 (0.8-1.2)
== END 2020-08-18 14:17 | disposition home or self-care (01) ==
LOC: ONCMED 14:17
PROVIDERS: PCP Internal Medicine; Visit Provider Internal Medicine Medical Oncology
DX: Z51.81 Encounter for therapeutic drug level monitoring (principal); Z79.01 Long term (current) use of anticoagulants
CPT/HCPCS: 85610

== ENCOUNTER 2020-09-16 14:55 | Outpatient (CLI) | payer MEDICARE, SELFPAY ==
[2020-09-16 15:59] LABS: INR 1.24 (0.8-1.2)
== END 2020-09-16 14:56 | disposition home or self-care (01) ==
PROVIDERS: PCP Internal Medicine; Visit Provider Internal Medicine Medical Oncology
DX: Z51.81 Encounter for therapeutic drug level monitoring (principal); Z79.01 Long term (current) use of anticoagulants
CPT/HCPCS: 36415; 85610

== ENCOUNTER → 2020-10-11 11:16 | Outpatient (BNVA) | payer MEDICARE, SELFPAY | PROVIDERS: PCP Internal Medicine; Visit Provider Specialist | DX: G50.0 Trigeminal neuralgia (principal); Z79.899 Other long term (current) drug therapy; Z87.891 Personal history of nicotine dependence | CPT/HCPCS: 99214 ==

== ENCOUNTER 2020-10-14 14:25 | Outpatient (CLI) | payer MEDICARE, SELFPAY ==
[2020-10-14 15:46] LABS: INR 1.14 (0.8-1.2)
[2020-10-14 19:50] LABS: Carbamazepine Tegretol 9.1 ug/mL (4.0-12.0)
== END 2020-10-14 14:26 | disposition home or self-care (01) ==
LOC: ONCMED 14:28
PROVIDERS: Specialist; PCP Internal Medicine; Visit Provider Internal Medicine Medical Oncology
DX: I82.502 Chronic embolism and thrombosis of unspecified deep veins of left lower extremity (principal); Z79.01 Long term (current) use of anticoagulants
CPT/HCPCS: 36415; 80156; 85610

== ENCOUNTER 2020-10-21 15:00 | Outpatient (CLI) | payer MEDICARE, SELFPAY ==
[2020-10-21 15:42] LABS: INR 1.56 (0.8-1.2)
== END 2020-10-21 15:01 | disposition home or self-care (01) ==
PROVIDERS: PCP Internal Medicine; Visit Provider Internal Medicine Medical Oncology
DX: I82.502 Chronic embolism and thrombosis of unspecified deep veins of left lower extremity (principal); Z79.01 Long term (current) use of anticoagulants
CPT/HCPCS: 36415; 85610

== ENCOUNTER 2020-11-30 09:07 | Outpatient (CLI) | payer MEDICARE, SELFPAY ==
[2020-11-30 11:08] LABS: Basophils % 0.4 %; Eosinophils # 0.2 10^3/uL (0.0-0.8); Hematocrit 36.3 % (37.0-47.0); Hemoglobin 11.6 g/dL (11.5-15.3); Lymphocytes # 0.8 10^3/uL (0.8-4.8); Lymphocytes % 15.9 %; Mean Corpuscular Hemoglobin 30.3 pg (28.0-34.0); Mean Corpuscular Volume 94.8 fL (81-99); Mean Platelet Volume 9.6 fL (7.4-10.4); Monocytes # 0.5 10^3/uL (0.2-0.9); Monocytes % 10.4 %; Neutrophils # 3.48 10^3/uL (1.8-7.7); Neutrophils % 69.9 %; Nucleated Red Blood Cells % 0 %; Platelet Count 254 10^3/cmm (130-400); Red Blood Count 3.83 10^6/uL (4.1-5.3); Red Cell Distribution Width 14.7 % (12.1-15.1)
[2020-11-30 11:16] LABS: INR 1.21 (0.8-1.2)
[2020-11-30 11:27] LABS: Alanine Aminotransferase 10 U/L (0-33); Albumin Level 3.7 g/dL (3.5-5.2); Alkaline Phosphatase 98 IU/L (35-105); Anion Gap 13.7 (5-19); Aspartate Amino Transferase 14 U/L (0-32); Blood Urea Nitrogen 14 mg/dL (8-23); Calcium 8.8 mg/dL (8.5-10.5); Carbon Dioxide 25 mmol/L (22-29); Chloride 103 mmol/L (98-107); Globulin 3.2 g/dL (1.3-4.6); Glucose 105 mg/dL (65-115); Osmolality Calculated 287 mOsm/kg (285-295); Potassium 3.7 mmol/L (3.5-5.1); Sodium 138 mmol/L (136-145); Total Bilirubin 0.3 mg/dL (0.15-1.2); Total Protein 6.9 g/dL (6.6-8.7)
[2020-11-30 12:28] LABS: Iron 56 ug/dL (37-145); Percent Saturation 26.6 % (20-50); Total Iron Binding Capacity 210 mcg/dl; Unsaturated Iron Binding 154 ug/dL (112-347)
[2020-11-30 12:44] LABS: Vitamin B12 548 pg/mL (232-1245)
--- NOTE | 2020-12-04 11:38 | ONC FU_ITS ---
Dr. Sharma Patient Follow-Up Note Patient: Radha Vega Unit #: [id number]: [id number] Dicatated By: Brendan Sharma M.D.Date of Visit:Nov 30, 2020 Onc Med Follow-up/Prog Note Chief Complaint: Recurrent thrombosis. History of Present Illness: This is a 70 year-old woman with recurrent deep vein thrombosis. She has a history of recurrent deep vein thrombosis. She had blood clots in her left leg in 1994, in 1995, and in 1999. She indicated that she was found to have protein C or S deficiency (she couldn't remember which), though I could find no actual documentation of it in the available records. I had seen her initially on 02/07/2016 because she was having difficulty with her warfarin management. Her main complaint at that time was that she had been having difficulty with her left knee. She had originally undergone partial knee replacement in 2007. She then underwent revision to a total knee arthroplasty in June 2011. She required replacement of the joint again in November 2014, reportedly because of osteomyelitis. She had recovered gradually following that procedure. During that time she had continued anticoagulation with warfarin. However, her protimes had fluctuated significantly, and her INR frequently was subtherapeutic. Despite that she had no further thrombosis, and she experienced no bleeding complications. I reviewed options for her further anticoagulation, and she preferred to just continue with the warfarin. Following her visit in January 2016 her warfarin dosage was adjusted upward, and her subsequent INRs had mostly been in therapeutic range. Her medical history, in addition to recurrent thrombosis, includes hypertension, trigeminal neuralgia, and degenerative arthritis. In February 2018 she underwent left total knee arthroplasty. She had no bleeding or thrombotic complications with that procedure. She has only a minimal smoking history, and she quit smoking in 1989. INTERIM HISTORY: She is seen for a follow-up visit. She has been having more problems with her trigeminal neuralgia, and she is planning to undergo a rhizotomy procedure for it sometime within the next several weeks. Her trigeminal neuralgia pain now is severe enough that it affects her ability to talk and eat. She has pretty good energy. ECOG score is 1. Her appetite has been okay, though she does have difficulty eating, as noted. Her weight is stable. She does not have fever or night sweats. She has no shortness of breath, cough, or chest pain. She has some nausea with her medication. She also reports having constipation. She has no complaints. She also has joint pain, mainly in her hands and her right knee. She does not complain of headache, and she has no focal neurologic symptoms. Medications: Biotin 1 Tablet (of 5000 mcg) Capsule Oral daily, Calcium + D Tablet Oral daily, Coumadin (12.5 mg) Oral Take as Directed, LaMICtal (200 mg) Tablet Oral Take as Directed, Magnesium 1 Capsule Oral daily, Multivitamin Adult 1 Tablet Oral daily Allergies: Adhesive Tape and Codeine Sulfate. Vital Signs: Performed on Nov 30, 2020 11:40 Height - 62.00 in Weight - 274.4 lbs (LOW) BSA - 2.19 sq.m BMI - 50.19 (HIGH) Temperature - 97.7 F (LOW) Pulse - 80 /min Respiration - 18 /min BP - 134/83 mm(hg) O2 Sat - 97 % Pain - 3 Fatigue - 0 Physical Examination: Constitutional - She looks pretty good generally, Eyes - Sclerae nonicteric. Conjunctivae clear, ENMT - No lesions noted in the oral cavity, Hematologic/Lymphatic - No cervical, clavicular, or axillary adenopathy, Respiratory - Lungs are clear with good air movement bilaterally, Cardiovascular - Heart rhythm is regular. There is no murmur, gallop, or rub noted, Abdomen - Distended. Liver and spleen are not enlarged. There is no abdominal mass or ascites noted and there is no inguinal adenopathy, Extremities - There are venous stasis changes bilaterally, worse on the left. There is mild swelling of the left leg, which is chronic. Pedal pulses are palpable bilaterally, Neurologic - No focal neurologic deficits noted. Lab/Imaging: Test performed on Nov 30, 2020 09:17 Iron 56 mcg/dL Sodium 138 mmol/L Vitamin B12 548 pg/mL Iron Binding Capacity (TIBC) 210 mcg/dl Potassium 3.7 mmol/L % Iron Saturation 26.6 % Chloride 103 mmol/L CO2 25 mmol/L UIBC 154 mcg/dL Anion Gap 13.7 BUN 14 mg/dL Creatinine 0.7 mg/dL Cr Clearance (Est) 144.84 mL/min Glucose 105 mg/dL Osmolality - Calculated 287 mOsm/kg Calcium 8.8 mg/dL Protein, Total 6.9 g/dL Albumin 3.7 g/dL Globulin 3.2 g/dL Bilirubin, Total 0.3 mg/dL ALT (SGPT) 10 U/L AST (SGOT) 14 U/L Alkaline Phosphatase 98 IU/L PT 15.70 SECONDS WBC 5.0 10 3/uL INR 1.21 RBC 3.83 10 6/uL HGB 11.6 g/dL HCT 36.3 % MCV 94.8 fL MCH 30.3 pg MCHC 32.0 g/dL RDW 14.7 % Platelet Count 254 10 3/cmm MPV 9.6 fL Neutrophils 3.48 10 3/uL Lymphocytes 0.8 10 3/uL Monocytes 0.5 10 3/uL Eosinophils 0.2 10 3/uL Basophils 0.0 10 3/uL Neutrophil % 69.9 % Lymphocyte % 15.9 % Monocyte % 10.4 % Eosinophil % 3.0 % Basophils % 0.4 % NRBC % 0 % Problem List: 1. Patient with recurrent episodes of deep vein thrombosis, all apparently involving the left leg. She has been on chronic anticoagulation with warfarin. 2. She reported having protein C or protein S deficiency, but I found no supporting documentation in the available records. 4. She has undergone mulitple surgeries on the left knee, reportedly for osteomyelitis complicating a revision to a total knee arthroplasty in June 2011. 5. She underwent placement of an inferior vena cava filter prior to knee surgery in June 2011. 6. Hypertension. 7. Degenerative arthritis. 8. Trigeminal neuralgia. 9. She has mild anemia. Problems Addressed with this Encounter and Plan: Patient with recurrent episodes of deep vein thrombosis, all apparently involving the left leg. She reported having protein C or protein S deficiency, but I found no supporting documentation in the available records. She has been on chronic anticoagulation with warfarin. During her follow-up she has had no further thrombosis and no bleeding complications. Recently she has been having more problems associated with her trigeminal neuralgia, and she is planning to undergo a rhizotomy procedure. Her risks with that should be low, but as a precaution, I will provide bridging with Lovenox for that procedure. I will see her again as needed. Signed By: Brendan Sharma M.D. <<Signature on File>>
== END 2020-11-30 09:08 | disposition home or self-care (01) ==
LOC: ONCMED 09:10
PROVIDERS: PCP Internal Medicine; Visit Provider Internal Medicine Medical Oncology
DX: I82.502 Chronic embolism and thrombosis of unspecified deep veins of left lower extremity (principal); Z79.01 Long term (current) use of anticoagulants; I10 Essential (primary) hypertension; M19.90 Unspecified osteoarthritis, unspecified site; G50.0 Trigeminal neuralgia; D64.9 Anemia, unspecified
CPT/HCPCS: 36415; 80053; 82607; 83540; 83550; 85025; 85610; 99214

== ENCOUNTER 2020-12-28 14:56 | Outpatient (CLI) | payer MEDICARE, SELFPAY ==
[2020-12-28 16:11] LABS: INR 1.28 (0.8-1.2)
== END 2020-12-28 14:57 | disposition home or self-care (01) ==
PROVIDERS: PCP Internal Medicine; Visit Provider Internal Medicine Medical Oncology
DX: Z79.01 Long term (current) use of anticoagulants (principal)
CPT/HCPCS: 36415; 85610

== ENCOUNTER 2021-01-13 09:51 | Outpatient (CLI) | payer MEDICARE, SELFPAY ==
[2021-01-13 15:32] LABS: INR 1.53 (0.8-1.2)
== END 2021-01-13 09:52 | disposition home or self-care (01) ==
LOC: ONCMED 09:52
PROVIDERS: PCP Internal Medicine; Visit Provider Internal Medicine Medical Oncology
DX: Z79.01 Long term (current) use of anticoagulants (principal)
CPT/HCPCS: 85610

== ENCOUNTER 2021-01-31 06:32 | Outpatient (CLI) | payer MEDICARE, SELFPAY ==
[2021-01-31 17:09] LABS: INR 1.29 (0.8-1.2)
== END 2021-01-31 06:33 | disposition home or self-care (01) ==
PROVIDERS: PCP Internal Medicine; Visit Provider Internal Medicine Medical Oncology
DX: I82.502 Chronic embolism and thrombosis of unspecified deep veins of left lower extremity (principal); Z79.01 Long term (current) use of anticoagulants
CPT/HCPCS: 36415; 85610

== ENCOUNTER 2021-02-07 14:48 | Outpatient (CLI) | payer MEDICARE, SELFPAY ==
[2021-02-07 16:01] LABS: INR 2.74 (0.8-1.2)
== END 2021-02-07 14:49 | disposition home or self-care (01) ==
PROVIDERS: PCP Internal Medicine; Visit Provider Internal Medicine Medical Oncology
DX: I82.502 Chronic embolism and thrombosis of unspecified deep veins of left lower extremity (principal); Z79.01 Long term (current) use of anticoagulants
CPT/HCPCS: 36415; 85610

== ENCOUNTER 2021-02-22 12:09 | Outpatient (CLI) | payer MEDICARE, SELFPAY ==
[2021-02-22 13:23] LABS: INR 2.72 (0.8-1.2)
== END 2021-02-22 12:10 | disposition home or self-care (01) ==
LOC: ONCMED 12:12
PROVIDERS: PCP Internal Medicine; Visit Provider Internal Medicine Medical Oncology
DX: I82.502 Chronic embolism and thrombosis of unspecified deep veins of left lower extremity (principal); Z79.01 Long term (current) use of anticoagulants
CPT/HCPCS: 36415; 85610

== ENCOUNTER 2021-04-06 11:04 | Outpatient (CLI) | payer MEDICARE, SELFPAY ==
[2021-04-06 13:35] LABS: INR 6.84 (0.8-1.2)
== END 2021-04-06 11:05 | disposition home or self-care (01) ==
PROVIDERS: PCP Internal Medicine; Visit Provider Internal Medicine Medical Oncology
DX: I82.502 Chronic embolism and thrombosis of unspecified deep veins of left lower extremity (principal); Z79.01 Long term (current) use of anticoagulants
CPT/HCPCS: 36415; 85610

== ENCOUNTER → 2021-04-12 10:06 | Outpatient (BNVA) | payer MEDICARE, SELFPAY | PROVIDERS: PCP Internal Medicine; Visit Provider Specialist | DX: Z09 Encounter for follow-up examination after completed treatment for conditions other than malignant neoplasm (principal); Z86.69 Personal history of other diseases of the nervous system and sense organs; Z87.891 Personal history of nicotine dependence | CPT/HCPCS: 99212 ==

== ENCOUNTER 2021-04-26 08:48 | Outpatient (CLI) | payer MEDICARE, SELFPAY ==
[2021-04-26 10:07] LABS: INR 3.32 (0.8-1.2)
== END 2021-04-26 08:49 | disposition home or self-care (01) ==
LOC: ONCMED 08:48
PROVIDERS: PCP Internal Medicine; Visit Provider Internal Medicine Medical Oncology
DX: I82.502 Chronic embolism and thrombosis of unspecified deep veins of left lower extremity (principal); Z79.01 Long term (current) use of anticoagulants
CPT/HCPCS: 36415; 85610

== ENCOUNTER 2021-05-04 09:49 | Outpatient (CLI) | payer MEDICARE, SELFPAY ==
--- NOTE | 2021-05-04 09:58 | XRR_ITS ---
PROCEDURE INFORMATION: Exam: XR Chest Exam date and time: 05/04/2021 9:58 AM Age: 71 years old Clinical indication: Abnormal findings; Abnormal diagnostic tests; Other: Elevated c reactive protein; Dyspnea; Prior surgery; Surgery type: RT breast; Additional info: Elevated c reactive protein/dyspnea TECHNIQUE: Imaging protocol: XR of the chest. Views: 2 views. COMPARISON: CR XR knees AP WB w BI lmt ORTH 07/05/2020 3:21 PM FINDINGS: Lungs: Unremarkable. No consolidation. Pleural spaces: Unremarkable. No pleural effusion. No pneumothorax. Heart/Mediastinum: Unremarkable. No cardiomegaly. Bones/joints: Unremarkable. XR/XR chest 2V* [id number] IMPRESSION: No acute findings. Radiation Dose CTDIVOL = (mGy): DLP = (mGy-cm)
== END 2021-05-04 09:50 | disposition home or self-care (01) ==
LOC: RAD 09:53
PROVIDERS: PCP Internal Medicine; Visit Provider Family Medicine
DX: R79.82 Elevated C-reactive protein (CRP) (principal); R06.02 Shortness of breath
CPT/HCPCS: 71046

== ENCOUNTER 2021-05-16 07:55 | Outpatient (CLI) | payer MEDICARE, SELFPAY ==
[2021-05-16 09:01] LABS: INR 3.47 (0.8-1.2)
== END 2021-05-16 07:56 | disposition home or self-care (01) ==
LOC: ONCMED 07:55
PROVIDERS: PCP Internal Medicine; Visit Provider Nurse Practitioner
DX: I82.502 Chronic embolism and thrombosis of unspecified deep veins of left lower extremity (principal); Z79.01 Long term (current) use of anticoagulants
CPT/HCPCS: 36415; 85610

== ENCOUNTER 2021-06-20 14:06 | Outpatient (CLI) | payer MEDICARE, SELFPAY | END 2021-06-20 14:07 | disposition home or self-care (01) | LOC: ONCMED 14:12 | PROVIDERS: PCP Internal Medicine; Visit Provider Internal Medicine Medical Oncology | DX: I82.502 Chronic embolism and thrombosis of unspecified deep veins of left lower extremity (principal); Z79.01 Long term (current) use of anticoagulants | CPT/HCPCS: 36415; 85610 ==

== ENCOUNTER 2021-07-18 13:54 | Outpatient (CLI) | payer MEDICARE, SELFPAY ==
[2021-07-18 14:36] LABS: INR 4.38 (0.8-1.2)
== END 2021-07-18 13:55 | disposition home or self-care (01) ==
LOC: ONCMED 13:58
PROVIDERS: PCP Internal Medicine; Visit Provider Internal Medicine Medical Oncology
DX: I82.812 Embolism and thrombosis of superficial veins of left lower extremity (principal); Z79.01 Long term (current) use of anticoagulants
CPT/HCPCS: 36415; 85610

== ENCOUNTER 2021-08-15 14:03 | Outpatient (CLI) | payer MEDICARE, SELFPAY | END 2021-08-15 14:04 | disposition home or self-care (01) | LOC: ONCMED 14:07 | PROVIDERS: PCP Internal Medicine; Visit Provider Internal Medicine Medical Oncology | DX: I74.4 Embolism and thrombosis of arteries of extremities, unspecified (principal); Z79.01 Long term (current) use of anticoagulants | CPT/HCPCS: 36415; 85610 ==

== ENCOUNTER 2021-09-08 06:00 | Outpatient (RCR) | payer MEDICARE, SELFPAY | END 2021-09-08 23:59 | disposition home or self-care (01) | LOC: SPT 06:00 | PROVIDERS: PCP Internal Medicine; Referring Provider Nurse Practitioner Adult Health; Visit Provider Nurse Practitioner Adult Health | DX: M17.11 Unilateral primary osteoarthritis, right knee (principal) | CPT/HCPCS: 97110; 97161 ==

== ENCOUNTER 2021-09-09 06:00 | Outpatient (RCR) | payer MEDICARE, SELFPAY | END 2021-10-08 23:59 | disposition home or self-care (01) | LOC: SPT 06:00 | PROVIDERS: PCP Internal Medicine; Referring Provider Nurse Practitioner Adult Health; Visit Provider Nurse Practitioner Adult Health | DX: M17.11 Unilateral primary osteoarthritis, right knee (principal) | CPT/HCPCS: 97110 ==

== ENCOUNTER 2021-09-12 14:04 | Outpatient (CLI) | payer MEDICARE, SELFPAY ==
[2021-09-12 16:01] LABS: INR 2.02 (0.8-1.2)
== END 2021-09-12 14:05 | disposition home or self-care (01) ==
LOC: ONCMED 14:05
PROVIDERS: PCP Internal Medicine; Visit Provider Internal Medicine Medical Oncology
DX: I82.502 Chronic embolism and thrombosis of unspecified deep veins of left lower extremity (principal); Z79.01 Long term (current) use of anticoagulants
CPT/HCPCS: 36415; 85610

== ENCOUNTER 2021-10-09 06:00 | Outpatient (RCR) | payer MEDICARE, SELFPAY | END 2021-11-08 23:59 | disposition home or self-care (01) | LOC: SPT 06:00 | PROVIDERS: PCP Internal Medicine; Referring Provider Nurse Practitioner Adult Health; Visit Provider Nurse Practitioner Adult Health | DX: M17.11 Unilateral primary osteoarthritis, right knee (principal) | CPT/HCPCS: 97110 ==

== ENCOUNTER 2021-10-12 11:20 | Outpatient (CLI) | payer MEDICARE, SELFPAY ==
[2021-10-12 12:06] LABS: INR 1.71 (0.8-1.2)
== END 2021-10-12 11:21 | disposition home or self-care (01) ==
PROVIDERS: PCP Internal Medicine; Visit Provider Internal Medicine Medical Oncology
DX: I82.502 Chronic embolism and thrombosis of unspecified deep veins of left lower extremity (principal); Z79.01 Long term (current) use of anticoagulants
CPT/HCPCS: 36415; 85610

== ENCOUNTER 2021-11-09 06:00 | Outpatient (RCR) | payer MEDICARE, SELFPAY | END 2021-12-08 23:59 | disposition home or self-care (01) | LOC: SPT 06:00 | PROVIDERS: PCP Family Medicine; Referring Provider Nurse Practitioner Adult Health; Visit Provider Nurse Practitioner Adult Health | DX: M17.11 Unilateral primary osteoarthritis, right knee (principal) | CPT/HCPCS: 97110 ==

== ENCOUNTER 2021-11-21 13:08 | Oncology outpatient (recurring) (ONCR) | payer MEDICARE, SELFPAY ==
[2021-11-21 14:28] LABS: INR 4.07 (0.8-1.2)
== END 2021-12-08 23:59 | disposition home or self-care (01) ==
LOC: ONCMED 13:17
PROVIDERS: PCP Family Medicine; Visit Provider Internal Medicine Medical Oncology
DX: Z51.81 Encounter for therapeutic drug level monitoring (principal); Z79.01 Long term (current) use of anticoagulants
CPT/HCPCS: 36415; 85610

== ENCOUNTER 2021-12-21 13:17 | Oncology outpatient (recurring) (ONCR) | payer MEDICARE, SELFPAY ==
[2021-12-21 15:10] LABS: INR 3.46 (0.8-1.2)
== END 2022-01-08 23:59 | disposition home or self-care (01) ==
LOC: ONCMED 13:17
PROVIDERS: PCP Family Medicine; Visit Provider Internal Medicine Medical Oncology
DX: Z51.81 Encounter for therapeutic drug level monitoring (principal); Z79.01 Long term (current) use of anticoagulants
CPT/HCPCS: 85610

== ENCOUNTER → 2022-01-28 10:55 | Outpatient (BNVA) | payer MEDICARE, SELFPAY | PROVIDERS: PCP Family Medicine; Visit Provider Registered Nurse Neonatal Intensive Care | DX: N39.0 Urinary tract infection, site not specified (principal); B37.2 Candidiasis of skin and nail | CPT/HCPCS: 81000 ==

== ENCOUNTER → 2022-02-08 09:29 | Outpatient (BNVA) | payer MEDICARE, SELFPAY | PROVIDERS: PCP Family Medicine; Visit Provider Family Medicine | DX: R79.82 Elevated C-reactive protein (CRP) (principal); E78.5 Hyperlipidemia, unspecified; R53.83 Other fatigue; E66.01 Morbid (severe) obesity due to excess calories; Z79.01 Long term (current) use of anticoagulants; D68.51 Activated protein C resistance; K76.0 Fatty (change of) liver, not elsewhere classified | CPT/HCPCS: 80053; 80061; 83880; 85025; 85610; 85651; 86140 ==

== ENCOUNTER → 2022-03-08 11:48 | Outpatient (BNVA) | payer MEDICARE, SELFPAY | PROVIDERS: PCP Family Medicine; Visit Provider Family Medicine | DX: D68.51 Activated protein C resistance (principal); Z79.01 Long term (current) use of anticoagulants | CPT/HCPCS: 85610 ==

== ENCOUNTER → 2022-04-28 11:34 | Outpatient (BNVA) | payer MEDICARE, SELFPAY | PROVIDERS: PCP Family Medicine; Visit Provider Family Medicine | DX: Z79.01 Long term (current) use of anticoagulants (principal); K76.0 Fatty (change of) liver, not elsewhere classified | CPT/HCPCS: 85610 ==

== ENCOUNTER 2022-05-10 07:27 | Outpatient (CLI) | payer MEDICARE, SELFPAY ==
--- NOTE | 2022-05-10 08:00 | US_ITS ---
WS: [id number] ULTRASOUND ABDOMEN LIMITED CLINICAL INFORMATION: hepatomegaly/ fatty liver COMPARISON: CT August 29, 2014 FINDINGS: Technically difficult examination due to body habitus. Liver Size: Enlarged Craniocaudal length: 18.6 cm. Echogenicity: Coarse hepatic echogenicity Surface nodularity: None. Mass (size and location): None. Bile ducts Intrahepatic ducts: Normal. Common bile duct diameter: 0.6 cm. Gallbladder Cholecystectomy. Pancreas Normal as visualized. Right kidney: Normal. Hydronephrosis: None. Size: 9.9 cm x 6.0 cm x 5.2 cm. Abdominal aorta and IVC Visualized portions are normal. Ascites: None. US/US liver [id number] IMPRESSION: Technically difficult examination due to body habitus. 1. Hepatomegaly with diffuse fatty infiltration. 2. Prior cholecystectomy. 3. No hydronephrosis in RIGHT kidney.
== END 2022-05-10 07:28 | disposition home or self-care (01) ==
LOC: RAD 07:28
PROVIDERS: PCP Family Medicine; Visit Provider Family Medicine
DX: K76.0 Fatty (change of) liver, not elsewhere classified (principal); R16.0 Hepatomegaly, not elsewhere classified; Z90.49 Acquired absence of other specified parts of digestive tract
CPT/HCPCS: 76705

== ENCOUNTER → 2022-05-25 14:38 | Outpatient (BNVA) | payer MEDICARE, SELFPAY | PROVIDERS: PCP Family Medicine; Visit Provider Family Medicine | DX: K76.0 Fatty (change of) liver, not elsewhere classified (principal); E78.5 Hyperlipidemia, unspecified; Z79.01 Long term (current) use of anticoagulants | CPT/HCPCS: 85610 ==

== ENCOUNTER → 2022-06-30 11:06 | Outpatient (BNVA) | payer MEDICARE, SELFPAY | PROVIDERS: PCP Family Medicine; Visit Provider Family Medicine | DX: Z79.01 Long term (current) use of anticoagulants (principal) | CPT/HCPCS: 85610 ==

== ENCOUNTER 2022-09-05 13:19 | Outpatient (CLI) | payer MEDICARE, SELFPAY ==
[2022-09-05 13:56] LABS: INR 2.67 (0.8-1.2)
== END 2022-09-05 13:20 | disposition home or self-care (01) ==
LOC: LAB 13:25
PROVIDERS: PCP Family Medicine; Visit Provider Family Medicine
DX: Z79.01 Long term (current) use of anticoagulants (principal)
CPT/HCPCS: 36415; 85610

== ENCOUNTER 2022-09-12 14:26 | Outpatient (CLI) | payer MEDICARE, SELFPAY ==
--- NOTE | 2022-09-12 14:30 | USCV_ITS ---
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
== END 2022-09-12 14:27 | disposition home or self-care (01) ==
LOC: RAD 14:29
PROVIDERS: PCP Family Medicine; Visit Provider Family Medicine
DX: I73.9 Peripheral vascular disease, unspecified (principal)
CPT/HCPCS: 93922

== ENCOUNTER → 2022-10-19 15:44 | Outpatient (BNVA) | payer MEDICARE, SELFPAY | PROVIDERS: PCP Family Medicine; Visit Provider Dermatology | DX: L57.0 Actinic keratosis (principal); L81.4 Other melanin hyperpigmentation; L57.3 Poikiloderma of Civatte; L82.1 Other seborrheic keratosis; L30.4 Erythema intertrigo | CPT/HCPCS: 17000; 99213 ==

== ENCOUNTER → 2022-10-24 14:59 | Outpatient (BNVA) | payer MEDICARE, SELFPAY | PROVIDERS: PCP Family Medicine; Visit Provider Family Medicine | DX: K76.0 Fatty (change of) liver, not elsewhere classified (principal); Z79.01 Long term (current) use of anticoagulants | CPT/HCPCS: 85610 ==

== ENCOUNTER → 2022-11-09 10:50 | Outpatient (BNVA) | payer MEDICARE, SELFPAY | PROVIDERS: PCP Family Medicine; Visit Provider Family Medicine | DX: R30.0 Dysuria (principal); N39.0 Urinary tract infection, site not specified | CPT/HCPCS: 81003; 87086 ==

== ENCOUNTER → 2022-11-24 10:01 | Outpatient (BNVA) | payer MEDICARE, SELFPAY | PROVIDERS: PCP Family Medicine; Visit Provider Family Medicine | DX: K76.0 Fatty (change of) liver, not elsewhere classified (principal); Z79.01 Long term (current) use of anticoagulants | CPT/HCPCS: 85610 ==

== ENCOUNTER 2022-12-06 13:13 | Outpatient (CLI) | payer MEDICARE, SELFPAY ==
--- NOTE | 2022-12-06 13:28 | MM_ITS ---
WS: [id number] BILATERAL 3D TOMOSYNTHESIS DIGITAL SCREENING MAMMOGRAPHY WITH CAD CLINICAL INFORMATION: SCREENING HISTORY: Screening mammogram. No current complaints. COMPARISON: 2020 TECHNIQUE: Bilateral CC and MLO views. FINDINGS: Scattered fibroglandular densities bilaterally. No suspicious focal mass, asymmetry, calcifications, or architectural distortion. No evidence of malignancy. Biopsy clip RIGHT breast. Incidental punctate calcifications. Vascular calcification. MM/[place] [id number] IMPRESSION: BI-RADS: 2-Benign FOLLOW UP: 1 Year Follow-up Recommend return to annual screening mammography.
== END 2022-12-06 13:14 | disposition home or self-care (01) ==
PROVIDERS: PCP Family Medicine; Visit Provider Family Medicine
DX: Z12.31 Encounter for screening mammogram for malignant neoplasm of breast (principal)
CPT/HCPCS: 77063; 77067

== ENCOUNTER → 2022-12-28 10:31 | Outpatient (BNVA) | payer MEDICARE, SELFPAY | PROVIDERS: PCP Family Medicine; Visit Provider Family Medicine | DX: Z79.01 Long term (current) use of anticoagulants (principal) | CPT/HCPCS: 85610 ==

== ENCOUNTER → 2023-01-31 11:44 | Outpatient (BNVA) | payer MEDICARE, SELFPAY | PROVIDERS: PCP Family Medicine; Visit Provider Family Medicine | DX: K76.0 Fatty (change of) liver, not elsewhere classified (principal); Z79.01 Long term (current) use of anticoagulants | CPT/HCPCS: 85610 ==

== ENCOUNTER → 2023-03-09 10:24 | Outpatient (BNVA) | payer MEDICARE, SELFPAY | PROVIDERS: PCP Family Medicine; Visit Provider Family Medicine | DX: K76.0 Fatty (change of) liver, not elsewhere classified (principal); Z79.01 Long term (current) use of anticoagulants | CPT/HCPCS: 85610 ==

== ENCOUNTER → 2023-05-17 15:12 | Outpatient (BNVA) | payer MEDICARE, SELFPAY | PROVIDERS: PCP Family Medicine; Visit Provider Family Medicine | DX: K76.0 Fatty (change of) liver, not elsewhere classified (principal); Z79.01 Long term (current) use of anticoagulants | CPT/HCPCS: 85610 ==

== ENCOUNTER → 2023-06-14 15:39 | Outpatient (BNVA) | payer MEDICARE, SELFPAY | PROVIDERS: PCP Family Medicine; Visit Provider Family Medicine | DX: K76.0 Fatty (change of) liver, not elsewhere classified (principal); Z79.899 Other long term (current) drug therapy | CPT/HCPCS: 85610 ==

== ENCOUNTER → 2023-07-05 12:05 | Outpatient (BNVA) | payer MEDICARE, SELFPAY | PROVIDERS: PCP Family Medicine; Visit Provider Family Medicine | DX: Z79.01 Long term (current) use of anticoagulants (principal) | CPT/HCPCS: 85610 ==

== ENCOUNTER → 2023-07-10 13:36 | Outpatient (BNVA) | payer MEDICARE, SELFPAY | PROVIDERS: PCP Family Medicine; Visit Provider Family Medicine | DX: R42 Dizziness and giddiness (principal); E78.5 Hyperlipidemia, unspecified; Z79.899 Other long term (current) drug therapy; I48.91 Unspecified atrial fibrillation | CPT/HCPCS: 80053; 83880; 84443; 85025; 86140 ==

== ENCOUNTER → 2023-08-14 15:46 | Outpatient (BNVA) | payer MEDICARE, SELFPAY | PROVIDERS: PCP Family Medicine; Visit Provider Family Medicine | DX: K76.0 Fatty (change of) liver, not elsewhere classified (principal) | CPT/HCPCS: 85610 ==

== ENCOUNTER → 2023-09-25 12:44 | Outpatient (BNVA) | payer MEDICARE, SELFPAY | PROVIDERS: PCP Family Medicine; Visit Provider Family Medicine | DX: Z86.711 Personal history of pulmonary embolism (principal); Z79.01 Long term (current) use of anticoagulants | CPT/HCPCS: 85610 ==

== ENCOUNTER → 2023-11-08 11:17 | Outpatient (BNVA) | payer MEDICARE, SELFPAY | PROVIDERS: PCP Family Medicine; Visit Provider Family Medicine | DX: Z86.711 Personal history of pulmonary embolism (principal); Z79.01 Long term (current) use of anticoagulants | CPT/HCPCS: 85610 ==

== ENCOUNTER 2024-01-03 11:40 | Outpatient (CLI) | payer MEDICARE, SELFPAY ==
--- NOTE | 2024-01-03 12:00 | MM_ITS ---
WS: [id number] BILATERAL SCREENING DIGITAL TOMOSYNTHESIS MAMMOGRAM WITH CAD HISTORY: screening COMPARISON: 12/06/2022, 03/11/2020 Bilateral CC and MLO views with tomosynthesis and synthetic mammography submitted. Computer aided det ection analyzed. Breast composition: There are scattered areas of fibroglandular density. No suspicious masses, microc alcifications or architectural distortion. Multiple linear asymmetries and calcifications in each [place] ast have remained stable. There is a biopsy clip also in the anterior RIGHT breast. MM/[place] [id number] IMPRESSION: BI-RADS: 2-Benign FOLLOW UP: 1 Year Follow-up
== END 2024-01-03 11:41 | disposition home or self-care (01) ==
LOC: RAD 11:40
PROVIDERS: PCP Family Medicine; Visit Provider Family Medicine
DX: Z12.31 Encounter for screening mammogram for malignant neoplasm of breast (principal); R92.323 Mammographic fibroglandular density, bilateral breasts; N64.89 Other specified disorders of breast; R92.1 Mammographic calcification found on diagnostic imaging of breast
CPT/HCPCS: 77063; 77067; 85610

== ENCOUNTER → 2024-01-30 14:08 | Outpatient (BNVA) | payer MEDICARE, SELFPAY | PROVIDERS: PCP Family Medicine; Visit Provider Clinical Nurse Specialist Adult Health | DX: Z79.01 Long term (current) use of anticoagulants (principal) | CPT/HCPCS: 85610 ==

== ENCOUNTER → 2024-03-31 11:15 | Outpatient (BNVA) | payer MEDICARE, SELFPAY | PROVIDERS: PCP Family Medicine; Visit Provider Family Medicine | DX: Z86.711 Personal history of pulmonary embolism (principal) | CPT/HCPCS: 85610 ==

== ENCOUNTER → 2024-05-06 13:24 | Outpatient (BNVA) | payer MEDICARE, SELFPAY | PROVIDERS: PCP Family Medicine; Visit Provider Family Medicine | DX: K76.0 Fatty (change of) liver, not elsewhere classified (principal) | CPT/HCPCS: 85610 ==

== ENCOUNTER → 2024-07-03 14:01 | Outpatient (BNVA) | payer SELFPAY | PROVIDERS: PCP Family Medicine; Visit Provider Family Medicine | DX: Z79.01 Long term (current) use of anticoagulants (principal) | CPT/HCPCS: 85610 ==

== ENCOUNTER → 2024-09-10 08:24 | Outpatient (BNVA) | payer MEDICARE, SELFPAY | PROVIDERS: PCP Family Medicine; Visit Provider Family Medicine | DX: R30.0 Dysuria (principal); Z79.01 Long term (current) use of anticoagulants; N39.0 Urinary tract infection, site not specified | CPT/HCPCS: 81000; 85025; 85610 ==

== ENCOUNTER → 2024-09-11 14:48 | Outpatient (BNVA) | payer MEDICARE, SELFPAY | PROVIDERS: PCP Family Medicine; Visit Provider Family Medicine | DX: R53.83 Other fatigue (principal) | CPT/HCPCS: 87077; 87086; 87184 ==

== ENCOUNTER → 2024-09-26 11:00 | Outpatient (BNVA) | payer MEDICARE, SELFPAY | PROVIDERS: PCP Family Medicine; Visit Provider Family Medicine | DX: K76.0 Fatty (change of) liver, not elsewhere classified (principal); E78.5 Hyperlipidemia, unspecified; D68.51 Activated protein C resistance | CPT/HCPCS: 80053; 80061; 85610 ==

== ENCOUNTER 2024-10-07 12:49 | Outpatient (CLI) | payer MEDICARE, SELFPAY ==
--- NOTE | 2024-10-07 13:00 | XR_ITS ---
WS: [id number] DEXA (DUAL ENERGY X-RAY ABSORPTIOMETRY) Bone mineral density was performed using a allyve machine. HISTORY: screening COMPARISON: None available. Lumbar spine BMD (L1-L4): 1.349 g/cm2 T score: 1.4 Z score: 2.0 Total hip BMD: Left: 1.018 g/cm2. T score: 0.1 Z score: 1.0 Right: 1.003 g/cm2. T score: 0.0 Z score: 0.9 10 year probability of a major osteoporotic fracture is 13.0%. XR/XR DEXA axial skeleton* [id number] IMPRESSION: NORMAL BONE MINERAL DENSITY based upon the WHO classification for females.
== END 2024-10-07 12:50 | disposition home or self-care (01) ==
LOC: RAD 12:50
PROVIDERS: PCP Family Medicine; Visit Provider Family Medicine
DX: Z00.00 Encounter for general adult medical examination without abnormal findings (principal)
CPT/HCPCS: 77080

== ENCOUNTER → 2024-10-13 13:21 | Outpatient (BNVA) | payer MEDICARE, SELFPAY | PROVIDERS: PCP Family Medicine; Visit Provider Nurse Practitioner Family | DX: L82.1 Other seborrheic keratosis (principal); L57.8 Other skin changes due to chronic exposure to nonionizing radiation; L81.4 Other melanin hyperpigmentation; D22.5 Melanocytic nevi of trunk; L82.0 Inflamed seborrheic keratosis; L53.8 Other specified erythematous conditions; R20.8 Other disturbances of skin sensation; L29.89 Other pruritus; Z78.9 Other specified health status; L91.8 Other hypertrophic disorders of the skin; H53.451 Other localized visual field defect, right eye; R58 Hemorrhage, not elsewhere classified | CPT/HCPCS: 11200; 17110; 99213 ==

== ENCOUNTER → 2024-10-29 12:43 | Outpatient (BNVA) | payer MEDICARE, SELFPAY | PROVIDERS: PCP Family Medicine; Visit Provider Family Medicine | DX: Z86.711 Personal history of pulmonary embolism (principal) | CPT/HCPCS: 85610 ==

== ENCOUNTER → 2024-11-18 13:46 | Outpatient (BNVA) | payer MEDICARE, SELFPAY | PROVIDERS: PCP Family Medicine; Visit Provider Family Medicine | DX: Z86.711 Personal history of pulmonary embolism (principal) | CPT/HCPCS: 85610 ==

== ENCOUNTER → 2024-12-24 10:46 | Outpatient (BNVA) | payer MEDICARE, SELFPAY | PROVIDERS: PCP Family Medicine; Visit Provider Family Medicine | DX: Z86.711 Personal history of pulmonary embolism (principal) | CPT/HCPCS: 85610 ==

== ENCOUNTER → 2025-02-02 12:57 | Outpatient (BNVA) | payer MEDICARE, SELFPAY | PROVIDERS: PCP Family Medicine; Visit Provider Family Medicine | DX: K76.0 Fatty (change of) liver, not elsewhere classified (principal) | CPT/HCPCS: 85610 ==

== ENCOUNTER 2025-02-13 10:49 | Outpatient (CLI) | payer MEDICARE, SELFPAY ==
--- NOTE | 2025-02-13 11:20 | MM_ITS ---
WS: [id number] BILATERAL 3D TOMOSYNTHESIS DIGITAL SCREENING MAMMOGRAPHY WITH CAD CLINICAL INFORMATION: screening HISTORY: Screening mammogram. No current complaints. COMPARISON: 2023 TECHNIQUE: Bilateral CC and MLO views. FINDINGS: Scattered fibroglandular densities bilaterally. No suspicious focal mass, asymmetry, calcifications, or architectural distortion. No evidence of malignancy. Vascular calcification. Biopsy clip RIGHT breast. MM/MM scr BI tomosynthesis [id number] IMPRESSION: DENSITY: There are scattered areas of fibroglandular density. BI-RADS: 2 - Benign. FOLLOW UP: 1 Year Follow-up Recommend return to annual screening mammography.
== END 2025-02-13 10:50 | disposition home or self-care (01) ==
LOC: RAD 10:50
PROVIDERS: PCP Family Medicine; Visit Provider Family Medicine
DX: Z12.31 Encounter for screening mammogram for malignant neoplasm of breast (principal); R92.323 Mammographic fibroglandular density, bilateral breasts; Z96.89 Presence of other specified functional implants
CPT/HCPCS: 77063; 77067

== ENCOUNTER 2025-03-11 07:06 | Emergency (ER) | payer MEDICARE, SELFPAY ==
--- OUTSIDE RECORDS SUMMARY | 2022-01-19 05:50 | XMS_ITS | Continuity of Care Document ---
Author Organization [facility] Address [address] [place] [address] Phone Care Team Providers Care Second Grade Teacher Name Role Phone Myron GERA LEUNG Eliud [...] Date Provider Providers Copied on Encounter [facility], [address], [id number], [place] tel:[phone] [facility] Right knee (chief complaint) Pain in right kneeUnilateral primary osteoarthritis, right knee 2 Myron Kline. [address], [id number] , [place]. tel:[phone] Referring Provider: Eliud Guadarrama, [address] [address], [place], [address]. tel:[phone] [facility], [address], [id number], [place] tel:[phone] [facility] right knee (chief complaint) Pain in right kneeUnilateral primary osteoarthritis, right knee 2 Myron Kline. [address] [facility], [address], [id number] , [place]. tel:[phone] Referring Provider: Eliud Guadarrama, [address] [address], [place], [address]. tel:[phone] Office/outpa tient visit,est, mod [facility], [address], [id number], [place] tel:[phone] [facility] right knee (chief complaint) Pain in right kneeUnilateral primary osteoarthritis, right knee 1 Elena vázquez. [address] [facility], [address], [id number] , [place]. tel: [phone] Referring Provider: Tamir Parra, [address] [facility] [facility] [address] [facility], [place], [address]. tel:[phone] Office/outpa tient visit,est, [facility], [address] [address], [place], [place], [id number], [place] tel:[phone] [facility] Right Knee (chief complaint) Unilateral primary osteoarthritis, right knee 0 Elena vázquez. [address] [facility], [address] [facility], [place], [place], [id number] , [place]. tel: [phone] Referring Provider: Tamir Parra, [address] [address], [place], [address]. tel:[phone] Office/outpa tient visit,est, [facility], [address] [place] [address], [id number], [place] tel:[phone] [facility] Left knee (chief complaint) Right knee (chief complaint) Presence of left artificial knee jointPain in right kneeUnilateral primary osteoarthritis, right knee 0 Myron Kline. [address] [facility], [address] [address], [place], [place], [id number] , [place]. tel: [phone] Referring Provider: Eliud Guadarrama, [address] [place] [address], [place], [address]. tel:[phone] [facility], [address], [id number], [place] tel:[phone] [facility] Presence of left artificial knee joint [address] [place] [address], [address] [address], [place], [place], [id number] , [place]. tel:[phone] Office/outpa tient visit,est, [facility], [address] [place] [address], [id number], [place] tel:[phone] [facility] Left Knee (chief complaint) Presence of left artificial knee jointPain in right kneeUnilateral primary osteoarthritis, right knee Sep- 9 Myron Kline. [address] [facility], [place], [place], [id number] , [place]. tel: [phone] Referring Provider: Eliud Guadarrama, [address] [facility] [address] [facility], [place], [address]. tel:[phone] Office/outpa tient visit,est, [facility], [address] [facility] [address], [place], [place], [id number], [place] tel:[phone] [facility] Left Knee (chief complaint) Laceration w/o foreign body of left knee, initial encounterPresen ce of left artificial knee jointPain in right kneeUnilateral primary osteoarthritis, right knee Horacio-0 9 Myron Kline. [address] [facility], [address] [address], [place], [place], [id number] , [place]. tel: [phone] Referring Provider: Eliud Guadarrama, [address] [facility] [address] [facility], [place], [address]. tel:[phone] Office/outpa tient visit,est, [facility], [address] [address], [place], [place], [id number], [place] tel:[phone] [facility] Left knee (chief complaint) Presence of left artificial knee jointLaceration w/o foreign body of left knee, initial encounter 9 Myron Kline. [address] [facility], [address], [place], [place], [id number] , [place]. tel: [phone] Referring Provider: Eliud Guadarrama, [address] [facility] [address] [facility], [place], [address]. tel:[phone] Office/outpa tient visit,est, [facility], [address] [address], [place], [place], [id number], [place] tel:[phone] [facility] Left knee (chief complaint) Presence of left artificial knee joint 9 Sanchesjanelle Kline. [address] [facility], [address] [facility], [place], [place], [id number] , [place]. tel: [phone] Referring Provider: Eliud Sanches M, [address] [facility] [address], [place], [address]. [phone] [facility], [address] [address], [place], [place], [id number], [place] [phone] [facility] Presence of left artificial knee joint 9 Elena vázquez. [address] [facility], [address] [address], [place], [place], [id number] , [place]. tel: [phone] [facility], [address], [id number], [place] [phone] [facility] No Information 8 Sanchesjanelle Kline. [address] [facility], [address], [place], [place], [id number] , [place]. tel: [phone] [facility], [address], [id number], [place] tel:[phone] [facility] Left knee (chief complaint) Presence of left artificial knee joint 8 Myron Kline. [address] [facility], [address], [id number] , [place]. tel: [phone] Referring Provider: Eliud Guadarrama, [address] [facility] [address] [facility], [place], [address]. [phone] [facility], [address], [id number], [place] tel:[phone] [facility] Left knee (chief complaint) Presence of left artificial knee joint 8 Sanchesjanelle Crowea. [address] [facility], [address], [id number] , [place]. tel: [phone] Referring Provider: Eliud Guadarrama, [address] [facility] [address], [place], [address]. tel:[phone] [facility], [address] [address], [place], [place], [id number], [place] [phone] [facility] Follow Up of Left knee (chief complaint) Presence of right artificial knee joint 8 Myron Kline. [address] [facility], [facility] [address], [place], [place], [id number] , [place]. tel: [phone] Referring Provider: Eliud Guadarrama, [address] [facility] [address] [facility], [place], [address]. [phone] [facility], [address] [address], [place], [place], [id number], [place] [phone] [facility] No Information 8 Brooke Bertrand. [address] [facility], [facility] [address], [place], [place], [id number] , [place]. tel: [phone] [facility], [address] [address], [place], [place], [id number], [place] tel:[phone] [facility] Left knee (chief complaint) Presence of right artificial knee joint 0 8 Myron Kline. [address] [facility], [address] [address], [place], [place], [id number] , [place]. 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 [address] [facility], [facility] [address], [place], [place], [id number] , [place]. 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 [address] [facility], [address], [place], [place], [id number] , [place]. tel: [phone] Referring Provider: Tamir Parra, [address] [facility] [address], [place], [address]. tel:[phone] Office/outpa tient visit,[facility], [facility], [address], [place], [place], [id number], [place] tel:[phone] [facility] left knee (chief complaint) Pain in left kneeMech loosening of internal left knee prosthetic joint, init 8 Elena Morin er. [address] [facility], [address], [place], [place], [id number] , [place]. tel: [phone] Referring Provider: Tamir Parra, [address] [facility] [address], [place], [address]. tel:[phone] Family History Family Member Type Diagnosis Age At Onset Mother Problem (finding) Osteoarthritis Mother Problem (finding) Cancer, unknown Mother Problem (finding) Stroke Mother Problem (finding) Heart Disease Mother Problem (finding) Blood disorder Father Problem (finding) Cancer, unknown Payers Payer name Insurance type Covered libertarian ID Authoriza tion(s) Medicare [place] W[place] Part B [id number] [facility] [id number] Social History Type Description Quantity Date Captured [...] to almost constant. It is managed with szlx-mpx-ldyhkgj pain medications and activity modifications. Denies injury, [...] to almost constant. It is managed with hmvh-jyh-sqbmsag pain medications and activity modifications. Denies injury, [...] She indicates walking almost daily at the [employer] with an exercise group. She is experiencing [...] it. Follow Up of Left knee Radha blil s a pleasant 68 year old female who presents today for ongoing post operative evaluation of her left total knee arthroplasty revision with a distal femoral replacement, date of surgery 03/01/2018. She has been participating in physical therapy and feels that it is going well. She is on retirement coumadin therapy, with a stable INR, for [...] aching nature that she is treating with [place] 5/325mg tablets, rest, ice, and elevation. She [...] knee replacement on the left knee and [place], that undergoing a revision by Dr. Carpenter. And then a further revision by Dr. Carpenter. Currently she has a failed [place] triathlon arthroplasty in place. The tibia and [...] discharged in stable condition. Dictation completed with Smart Lunches Edition software, grammatical variances in spelling errors [...] to transition back to Celebrex instead of mdya-jtt-zwdujkt pain medications and will follow up with her primary care for appropriate lab work as needed. She will follow up with our office as needed Patient Care Teams Name Effective Dates (start - stop) Status Members No Information
[2025-03-11 07:07] VITALS: BP 155/83; PULSE 79; RESP 18; TEMP 36.7; O2SAT 97; BMI 47.5
--- NOTE | 2025-03-11 07:09 | CT_ITS ---
WS: [id number] CT ABDOMEN AND PELVIS WITH CONTRAST HISTORY: abd pain, central pain with nausea and vomiting. TECHNIQUE: Imaging performed of the abdomen and pelvis with IV contrast. Single phase imaging of the abdomen. Coronal and sagittal reformats are submitted. All CT scans at [facility] use at least one of these dose optimization techniques: automated exposure control; mA and/or kV adjustment per patient size (includes targeted exams where dose is matched to clinical indication); or iterative reconstruction. IV CONTRAST: Omnipaque 350; 100 mL IV. Oral contrast: No DLP: 1707.63 mGy.cm COMPARISON: 08/29/2014 Lower thorax: Small layering LEFT pleural effusion. Mild enlargement of the heart. No hiatal hernia. Liver/biliary system: Normal size with no intrahepatic dilatation. Gallbladder: Prior cholecystectomy. Pancreas: Normal size pancreas and pancreatic duct. No adjacent inflammation. Spleen: Normal size spleen. No mass or infarct. Adrenal glands: Normal. Right kidney: Normal size RIGHT kidney. There is a small extrarenal pelvis that has enlarged since prior study. Calcifications in the dilated extrarenal pelvis. There is no ureteral dilatation. Left kidney: Normal. Aorta: Mild atherosclerosis with no aneurysm. IVC filter is present in good position. Lymphadenopathy: Numerous lymph nodes are identified in the abdomen. These lymph nodes are centered in the mesentery and closely associated with an abnormal stomach. There is a lobulated mass with enhancement in contact with the greater curvature of the stomach. The largest collection of lymph nodes measures 2.3 x 4.4 cm. There are numerous lymph nodes in the mesentery surrounding the stomach. There are small lymph nodes anterior to the heart which are new. An additional enhancing nodules along the omentum. Free fluid: Small to moderate amount of free fluid within the abdomen and pelvis. Metastatic nodules are noted along the omentum at numerous places in the upper abdomen. GI tract: Abnormal stomach. There is a low-attenuation mass in the greater curvature of the stomach measuring 2.2 x 2.0 cm. There is adjacent gastric wall thickening in continuity with lymph nodes along the greater curvature the stomach. No GI tract obstruction. Prior appendectomy. Abdominal wall: Unremarkable abdominal wall. No hernia. Pelvis: Small amount of free fluid in the pelvis. Uterus is midline. No ovarian mass. Bones: Bilateral facet joint arthropathy. No destructive bone lesions. CT/CT abdomen pelvis w con* [id number] IMPRESSION: 1. Small to moderate amount of ascites. Metastatic soft tissue deposits are no caren in the mesentery and along the omentum consistent with omental carcinomatos is. 2. Abnormal stomach. There is gastric wall thickening and a low-attenuation ma ss along the greater curvature measuring 2.2 x 2.0 cm. Extending posteriorly fr om the the gastric wall into the mesentery and omentum are numerous enhancing m asses consistent with adenopathy. 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 Recommend upper endoscopy to evaluate for gastric carcinoma or metastat ic GIST. 3. Extrarenal pelvis on the RIGHT. Small nonobstructing calcifications are not ed within the renal pelvis. There may be very slight dilatation of the calyces suggesting there may be a minimal UP junction obstruction. Very similar to 08/29. 4. IVC filter. 5. No metastatic disease noted within the liver or adrenal glands. 6. Small LEFT pleural effusion.
--- NOTE | 2025-03-11 07:09 | ED_ITS ---
HPI - Abdominal Pain 2 General: Chief Complaint: Nausea/Vomiting/Diarrhea Stated Complaint: flu symptoms Source: patient and EMS Mode of arrival: EMS Limitations: no limitations History of Present Illness: 75-year-old female states that she has b een having some intermittent abdominal pain and not feeling well since December. She states that overnight she started having vomiting along with diarrhea with worsening abdominal pain states her pain is diffuse in nature rates an 8 out of 10 states she has had multiple episodes of vomiting and diarrhea. She denies any fevers denies any worse or improving factors has had a history of cholecystectomy along with appendectomy Associated Symptoms: Reports diarrhea and vomiting Related Data Home Medications ?Medication ?Instructions ?Recorded ?Confirmed multivitamin,ks-wtpa-twhuwiol 1 tab PO DAILY 04/21/20 02/24/25 (Complete Multivitamin tablet) magnesium 200 mg tablet 400 mg PO DAILY 04/14/21 ACV gummies PO 01/28/22 02/24/25 Previous Rx's ?Medication ?Instructions ?Recorded clotrimazole 2 % vaginal cream 1 appful topical DAILY 5 days #21 01/28/22 (Gyne-Lotrimin) grams albuterol sulfate 90 mcg/actuation 2 puff inhalation Q 6H PRN 06/07/22 aerosol inhaler shortness of breath or wheez ing #8.5 grams azelastine 137 mcg (0.1 %) nasal 1 spray intranasal BI D #30 mL 01/30/24 spray warfarin 10 mg tablet 10 mg PO .COMPLEX as directe d #30 07/22/24 tabs sulfamethoxazole 800 1 tab PO BID #10 tabs mg-trimethoprim 160 mg tablet (Bactrim DS) warfarin 5 mg tablet See Rx Instructions .Route 0 12/30/24 .COMPLEX #30 tabs escitalopram oxalate 10 mg tablet 10 mg PO DAILY #30 t abs 02/24/25 (Lexapro) hydrocodone 5 mg-acetaminophen 325 1 tab PO Q6H PRN pa in #14 tabs 03/11/25 mg tablet ondansetron 4 mg disintegrating 4 mg PO Q6H PRN nausea and 03/11/25 tablet vomiting #14 tabs Allergies Allergy/AdvReac Type Severity Reaction Status Date / Time adhesive tape Allergy rash Verified 01/30/24 13:36 codeine Allergy Seizures Verified 01/30/24 13:36 Penicillins Allergy Rash Verified 01/30/24 13:36 Review of Systems 2 GI: Reports: abdominal pain, vomiting and diarrhea PFSH ED 2 PFSH: Medical History nursing home (current) use of anticoagulants Fatty liver Fatigue Hyperlipidemia Elevated C-reactive protein (CRP) Factor 5 Leiden mutation, heterozygous Trigeminal neuralgia of right side of face Surgical History History of brain surgery Trigeminal neuralgia repair of right side of face--non aggressive procedure History of appendectomy History of cholecystectomy Hx of breast surgery removal of a cyst-right side Hx of removal of cyst right calf Status post revision of total replacement of left knee Family History Mother Bleeding disorder factor 5 CAD (coronary artery disease) Cancer unsure but thinks it was UTERINE CANCER Stroke mini strokes Father Cancer Lung Hypertension Denies family history of Diabetes Clotting disorder Hyperlipidemia Chronic kidney disease (CKD) Thyroid disease Social History Smoking and tobacco/nicotine status: never used tobacco/nicotine Quit status (tobacco/nicotine): has quit using Year quit tobacco: 1970 Second hand smoke exposure: Yes Alcohol intake: current Alcohol intake frequency: holidays/special occasions only Substance/Drug Use: never Physical Exam 2 Const: COMMON NORMALS: no acute distress, patient oriented x3 and healthy appearing HENMT: COMMON NORMALS: normocephalic and atraumatic HEAD & SCALP: n ormocephalic and atraumatic Eye: COMMON NORMALS: conjunctivae normal CONJUNCTIVA: Yes conjunctivae normal Neck/C-Spine: COMMON NORMALS: full ROM and supple Chest: COMMONS NORMALS: normal inspection of the chest Resp: COMMON NORMALS: normal respiratory effort, No retractions, No use of accessory muscles and clear to auscultation bilaterally AUSCULTATION: clear to auscultation bilaterally Cardio: COMMON NORMALS: regular rate, regular rhythm and No murmurs present (Cardio) RATE: regular rate RHYTHM: regular rhythm GI: COMMON NORMALS: Normal to inspection, nondistended, normoactive bowel sounds present, Soft to palpation and no masses PALPATION: Yes Soft to palpation OTHER: diffuse tenderness Extremity: COMMON NORMALS: normal to inspection and full ROM Neuro: COMMON NORMALS: patient oriented x3, moves all extremities and no focal motor deficits Psych: COMMON NORMALS: mental status grossly normal, Normal thought process present and cooperative THOUGHT PROCESS: Normal thought process present Skin: COMMON NORMALS: no rashes or lesions noted and no wounds GENERAL SKIN EXAM: no rashes or lesions noted Course 2 Vital Signs: Vital signs: Vital Signs Temperature 98.1 F 03/11/25 07:07 Pulse Rate 77 03/11/25 07:46 Respiratory Rate 18 03/11/25 07:07 Blood Pressure 155/83 03/11/25 07:46 Pulse Oximetry 98 03/11/25 07:46 Oxygen Delivery Me thod Room Air 03/11/25 07:07 MDM - Abdominal Pain Medical Decision Making Patient presents here with abdominal pain differential includes small bowel obstruction constipation bowel perforation. CT showed none of these findings CT did show likely carcinomatosis with gastric mass with possible metastases. Patient's lab works were reviewed her white count electrolytes here were all normal. Treatment patient did receive morphine and Zofran her pain is much improved here and she has had no vomiting here. I did speak to her primary care doctor Dr. Ho informed him of the findings of the CT patient is lauren be discharged she is going to see her in 1 to 2 days and set up follow-up for further workup of the gastric mass she is to return to the ER if worsening I did discuss all of this with her and her son they understand agree to plan Medical Records I reviewed the patient's medical records. Lab Data I reviewed the patient's lab results. 03/11/25 06:45 03/11/25 06:45 Labs/Radiology: Radiology Impressions Abdomen/Pelvis CT 03/11/25 07:09 IMPRESSION: 1. Small to moderate amount of ascites. Metastatic soft tissue deposits are noted in the mesentery and along the omentum consistent with omental carcinomatosis. 2. Abnormal stomach. There is gastric wall thickening and a low-attenuation mass along the greater curvature measuring 2.2 x 2.0 cm. Extending posteriorly from the the gastric wall into the mesentery and omentum are numerous enhancing masses consistent with adenopathy. Findings are highly suspicious for gastric neoplasm. Recommend upper endoscopy to evaluate for gastric carcinoma or metastatic GIST. 3. Extrarenal pelvis on the RIGHT. Small nonobstructing calcifications are noted within the renal pelvis. There may be very slight dilatation of the calyces suggesting there may be a minimal UP junction obstruction. Very similar to 08/29/2014. 4. IVC filter. 5. No metastatic disease noted within the liver or adrenal glands. 6. Small LEFT pleural effusion. Laboratory Results WBC 8.47 10^3/uL (3.29-11.43) 03/11/25 06:45 RBC 4.58 10^6/uL (3.85-5.65) 03/11/25 06:45 Hgb 12.10 g/dL (11.27-16.99) 03/11/25 06:45 Hct 38.5 % (36-47) 03/11/25 06:45 MCV 84.1 fl (85-98) L 03/11/25 06:45 MCH 26.4 pg (27-33) L 03/11/25 06:45 MCHC 31.4 g/dL (30-55) 03/11/25 06:45 RDW 15.5 % (12.1-15.1) H 03/11/25 06:45 Plt Count 359 10^3/cmm (157-399) 03/11/25 06:45 MPV 9.7 fL (7.4-10.4) 03/11/25 06:45 Neut % (Auto) 83.8 % 03/11/25 06:45 Lymph % (Auto) 5.9 % 03/11/25 06:45 Larue % (Auto) 7.3 % 03/11/25 06:45 Eos % (Auto) 1.8 % 03/11/25 06:45 Baso % (Auto) 0.6 % 03/11/25 06:45 Neut # (Auto) 7.10 10^3/uL (1.8-7.7) 03/11/25 06:45 Lymph # (Auto) 0.5 10^3/uL (0.8-4.8) L 03/11/25 06:45 Larue # (Auto) 0.6 10^3/uL (0.2-0.9) 03/11/25 06:45 Eos # (Auto) 0.2 10^3/uL (0.0-0.8) 03/11/25 06:45 Baso # (Auto) 0.1 10^3/uL (0.0-0.1) 03/11/25 06:45 Nucleated RBC % (auto) 0 % 03/11/25 06:45 Nucleated RBCs # 0.0 /100WBC 03/11/25 06:45 Sodium 138 mmol/L (136-145) 03/11/25 06:45 Potassium 3.7 mmol/L (3.5-5.1) 03/11/25 06:45 Chloride 102 mmol/L (98-107) 03/11/25 06:45 Carbon Dioxide 21 mmol/L (22-29) L 03/11/25 06:45 Anion Gap 18.7 (5-19) 03/11/25 06:45 BUN 8 mg/dL (8-23) 03/11/25 06:45 Creatinine 0.8 mg/dL (0.5-0.9) 03/11/25 06:45 GFR Calculation Not Reportable 03/11/25 06:45 Glucose 118 mg/dL (65-115) H 03/11/25 06:45 Calculated Osmolality 285 mOsm/kg (285-295) 03/11/25 06:45 Calcium 9.0 mg/dL (8.5-10.5) 03/11/25 06:45 Total Bilirubin 0.4 mg/dL (0.15-1.2) 03/11/25 06:45 AST 13 U/L (0-32) 03/11/25 06:45 ALT 7 U/L (0-33) 03/11/25 06:45 Alkaline Phosphatase 76 U/L (35-105) 03/11/25 06:45 Total Protein 6.6 g/dL (6.6-8.7) 03/11/25 06:45 Albumin 3.4 g/dL (3.5-5.2) L 03/11/25 06:45 Globulin 3.2 g/dL (1.3-4.6) 03/11/25 06:45 Lipase 35 U/L (13-60) 03/11/25 06:45 Urine Color Love (Yellow) A 03/11/25 08:17 Urine Appearance Clear (CLEAR) 03/11/25 08:17 Urine pH 6.5 (5-7) 03/11/25 08:17 Ur Specific [place] 1.011 (1.005-1.030) 03/11/25 08:17 Urine Protein 1+ (Negative) A 03/11/25 08:17 Urine Glucose (UA) Negative (Normal) 03/11/25 08:17 Urine Ketones Negative (Negative) 03/11/25 08:17 Urine Blood 3+ (Negative) A 03/11/25 08:17 Urine Nitrate Negative (Negative) 03/11/25 08:17 Urine Bilirubin Negative (Negative) 03/11/25 08:17 Urine Urobilinogen 0.2 mg/dL (Negative) 03/11/25 08:17 Ur Leukocyte Esterase Negative (Negative) 03/11/25 08:17 Urine RBC 21-50 /hpf (0-2) H 03/11/25 08:17 Urine WBC Rare /hpf (0-5) 03/11/25 08:17 Ur Squamous Epith Cells 0-4 /hpf (0-5) H 03/11/25 08:17 Amorphous Sediment Not Reportable 03/11/25 08:17 Urine Bacteria Trace /hpf (NONE) 03/11/25 08:17 Hyaline Casts 0-4 /lpf H 03/11/25 08:17 All radiology interpretation(s) finalized by discharge Discharge Plan Discharge Patient Disposition: Home Clinical Impression: Abdominal pain, Gastric mass Condition: Stable Prescriptions: New hydrocodone-acetaminophen 5-325 mg tablet 1 tab PO Q6H PRN (Reason: pain) Qty: 14 0RF ondansetron 4 mg tablet,disintegrating 4 mg PO Q6H PRN (Reason: nausea and vomiting) Qty: 14 0RF No Action Complete Multivitamin Tablet 1 tab PO DAILY magnesium 200 mg tablet 400 mg PO DAILY escitalopram oxalate [Lexapro] 10 mg tablet 10 mg PO DAILY Qty: 30 11RF ACV gummies PO Gyne-Lotrimin 2 % cream 1 appful topical DAILY 5 Days Qty: 21 0RF albuterol sulfate 90 mcg/actuation HFA aerosol inhaler 2 puff inhalation Q6H PRN (Reason: shortness of breath or wheezing) Qty: 8.5 0RF azelastine 137 mcg (0.1 %) spray,non-aerosol 1 spray intranasal BID Qty: 30 0RF Rx Instructions: administer into each nostril warfarin 10 mg tablet 10 mg PO .COMPLEX Qty: 30 11RF Rx Instructions: 10 mg PO given on Tuesdays, , Saturdays and Sundays; sulfamethoxazole-trimethoprim [Bactrim DS] 800-160 mg tablet 1 tab PO BID Qty: 10 0RF warfarin 5 mg tablet See Rx Instructions .ROUTE .COMPLEX Qty: 30 11RF Dose Instruction: TAKE 1 TABLET BY MOUTH ON MONDAYS, WEDNESDAYS, AND FRIDAYS Rx Instructions: TAKE 1 TABLET BY MOUTH ON MONDAYS, WEDNESDAYS, AND FRIDAYS Discharge Orders: Discharge ED (Routine); Ordered 03/11/25 Ordered By: Osman Bourgeois Referrals: Niko Lomax MD [Primary Care Provider, Family Practice] - 1-3 days Discharge Diet: Advance as tolerated Discharge Activity: Resume usual activity Patient Instructions: Abdominal Pain (ED), Opioid Safety Print Language: Frisian Coding Level of Care Code ED Mortgage Servicing Specialist for Lakesha Kendrick
--- OUTSIDE RECORDS SUMMARY | 2025-03-11 07:14 | XMS_ITS | Clinical Summary ---
Author Organization [facility] Address [address] [place] [address] Care Team Providers Care Guyline Operator Name Role Phone Danni Jesus MD Primary Care Provider Allergies Active Allergy Reactions Criticality Noted Date Comments Codeine Unknown 07/12/2014 Penicillins Unknown 07/12/2014 Medications SULFAMETHOXAZOLE /TRIMETHOPRIM (BACTRIM ORAL) Take by mouth. Active RIFAMPIN ORAL Take by mouth. Active WARFARIN SODIUM (COUMADIN ORAL) Take by mouth. Active GABAPENTIN ORAL Take by mouth. Active HYDROcodone-acet aminophen (NORCO) 5-325 mg tablet Take 1 Tab by mouth every 4 hours as needed for Pain, Moderate. Active Social History Tobacco Use Types Packs/Day Years Used Date Smoking Tobacco: Never Assessed Comments Unknown Sex and Gender Information Value Date Recorded Sex Assigned at Not on file Legal Sex Female 1:08 PM FLAT IRONER Gender Identity Not on file Sexual Orientation Not on file Last Filed Vital Signs Vital Sign Reading Time Taken Comments Blood Pressure 137/63 07/12/2014 7:43 PM FLAT IRONER Pulse 81 07/12/2014 7:43 PM FLAT IRONER Temperature 36.8 C (98.2 F) 07/12/2014 5:00 PM FLAT IRONER Respiratory Rate 19 07/12/2014 7:43 PM FLAT IRONER Oxygen Saturation 96% 07/12/2014 7:43 PM FLAT IRONER Inhaled Oxygen Concentration - - Weight 119.7 kg (264 lb) 07/12/2014 5:00 PM FLAT IRONER Height 157.5 cm (5' 2 ) 07/12/2014 5:00 PM FLAT IRONER Body Mass Index 48.29 07/12/2014 5:00 PM FLAT IRONER Plan of Treatment Health Maintenance Due Date Last Done Comments DTAP/TDAP/TD VACCINES (1 - Tdap) 01/06/1968 PNEUMOCOCCAL VACCINE 50+ YEARS (1 of 1 - PCV) 01/05/19 99 ZOSTER VACCINE (1 of 2) 1999 OSTEOPOROSIS SCREENING 2014 RSV VACCINE (60+ or ) (1 - 1-dose 75+ series) 01/06/2024 INFLUENZA VACCINE (#1) 2025 Insurance MEDICARE PART A AND B [email or web address] Care Teams Guyline Operator Relationship Specialty Start Date End Date Danni Jesus MD [address] [place] [phone] PCP - General Family Practice 07/12/14
--- OUTSIDE RECORDS SUMMARY | 2025-03-11 07:14 | XMS_ITS | Clinical Summary ---
Author Organization [employer] Address [address] [facility] Attn: Epic Prelude ADT REJI ZAMBRANO [phone] Care Team Providers Care Perfect Binder Setter Name Role Phone Danni Jesus MD Primary Care Provider Allergies Active Allergy Reactions Criticality Noted Date Comments Codeine Unknown 07/12/2014 Penicillins Unknown 07/12/2014 Medications HYDROcodone-acet aminophen (NORCO) 5-325 mg tablet Take 1 Tab by mouth every 4 hours as needed for Pain, Moderate. 07/12/2014 Active warfarin sodium (COUMADIN ORAL) Take by mouth. 07/12/2014 Active GABAPENTIN ORAL Take by mouth. 07/12/2014 Active RIFAMPIN ORAL Take by mouth. 07/12/2014 Active sulfamethoxazole /trimethoprim (BACTRIM ORAL) Take by mouth. 07/12/2014 Active Social History Tobacco Use Types Packs/Day Years Used Date Smoking Tobacco: Never Assessed Comments Unknown Sex and Gender Information Value Date Recorded Sex Assigned at Not on file Legal Sex Female 1:51 PM LEAD RADIOLOGIC TECHNOLOGIST Gender Identity Not on file Sexual Orientation Not on file Last Filed Vital Signs Vital Sign Reading Time Taken Comments Blood Pressure 137/63 07/12/2014 7:43 PM LEAD RADIOLOGIC TECHNOLOGIST Pulse 81 07/12/2014 7:43 PM LEAD RADIOLOGIC TECHNOLOGIST Temperature 36.8 C (98.2 F) 07/12/2014 5:00 PM LEAD RADIOLOGIC TECHNOLOGIST Respiratory Rate 19 07/12/2014 7:43 PM LEAD RADIOLOGIC TECHNOLOGIST Oxygen Saturation - - Inhaled Oxygen Concentration - - Weight 119.7 kg (264 lb) 07/12/2014 5:00 PM LEAD RADIOLOGIC TECHNOLOGIST Height 157.5 cm (5' 2 ) 07/12/2014 5:00 PM LEAD RADIOLOGIC TECHNOLOGIST Body Mass Index 48.29 07/12/2014 5:00 PM LEAD RADIOLOGIC TECHNOLOGIST Plan of Treatment Health Maintenance Due Date Last Done Comments DTAP/TDAP/TD VACCINES (1 - Tdap) 01/06/1968 PNEUMOCOCCAL VACCINE 50+ YEARS (1 of 1 - PCV) 01/05/19 99 ZOSTER VACCINE (1 of 2) 1999 OSTEOPOROSIS SCREENING 2014 RSV VACCINE (60+ or ) (1 - 1-dose 75+ series) 01/06/2024 INFLUENZA VACCINE (#1) 2025 Care Teams Perfect Binder Setter Relationship Specialty Start Date End Date Danni Jesus MD [address] [place] [id number] PCP - General Family Practice 07/12/14
[2025-03-11] MEDS: ondansetron 2 mg/ML SDV 2 mL 4 MG IVP (07:18)
[2025-03-11] MEDS: morphine 4 mg/mL SDV 1 mL IVP ×2 (07:18→09:09)
[2025-03-11 07:27] LABS: Hematocrit 38.5 % (36-47); Hemoglobin 12.10 g/dL (11.27-16.99); Mean Corpuscular HGB Conc 31.4 g/dL (30-55); Mean Corpuscular Hemoglobin 26.4 pg (27-33); Mean Corpuscular Volume 84.1 fl (85-98); Nucleated Red Blood Cells % 0 %; Platelet Count 359 10^3/cmm (157-399); Red Blood Count 4.58 10^6/uL (3.85-5.65); White Blood Count 8.47 10^3/uL (3.29-11.43)
[2025-03-11 07:42] LABS: Alanine Aminotransferase 7 U/L (0-33); Albumin Level 3.4 g/dL (3.5-5.2); Alkaline Phosphatase 76 U/L (35-105); Anion Gap 18.7 (5-19); Aspartate Amino Transferase 13 U/L (0-32); Blood Urea Nitrogen 8 mg/dL (8-23); Calcium 9.0 mg/dL (8.5-10.5); Carbon Dioxide 21 mmol/L (22-29); Chloride 102 mmol/L (98-107); Creatinine Clr Calc Pharmacy 72.9428; Globulin 3.2 g/dL (1.3-4.6); Glucose 118 mg/dL (65-115); Lipase 35 U/L (13-60); Osmolality Calculated 285 mOsm/kg (285-295); Potassium 3.7 mmol/L (3.5-5.1); Sodium 138 mmol/L (136-145); Total Protein 6.6 g/dL (6.6-8.7)
[2025-03-11 07:46] VITALS: BP 155/83; PULSE 77; O2SAT 98
[2025-03-11] MEDS: iohexol 350 mg/mL 500 mL Btl (per mL) IV (08:01)
[2025-03-11 08:28] LABS: Glucose Urine UA Negative (Normal); Nitrate Urine Negative (Negative); Specific Gravity, Urine 1.011 (1.005-1.030)
[2025-03-11 08:39] LABS: UA Slide Review UA Slide Review Perf
[2025-03-11 08:40] LABS: Add Urine Microscopic? YES; UA Manual Slide Review YES
[2025-03-11 09:07] VITALS: BP 127/70; PULSE 76; O2SAT 92
[2025-03-11 09:27] VITALS: BP 127/70; PULSE 76; RESP 16; O2SAT 97
== END 2025-03-11 09:33 | disposition home or self-care (01) ==
PROVIDERS: Emergency Provider Emergency Medicine; PCP Family Medicine
DX: K31.89 Other diseases of stomach and duodenum (principal); R10.9 Unspecified abdominal pain; Z79.01 Long term (current) use of anticoagulants; E78.5 Hyperlipidemia, unspecified
CPT/HCPCS: 74177; 80053; 81001; 83690; 85025; 87086; 96374; 96375; 96376; 99285; J2270; J2405; J7030

== ENCOUNTER 2025-03-26 17:38 | Emergency (ER) | payer MEDICARE, SELFPAY ==
--- OUTSIDE RECORDS SUMMARY | 2022-01-19 05:50 | XMS_ITS | Continuity of Care Document ---
Author Organization [facility] Address [address] [place] [address] Phone Care Team Providers Care Kaitara Taraka Name Role Phone Myron GERA LEUNG Eliud Unavailable Unavailab le Allergies, Adverse Reactions, Alerts Substance Reaction Status Criticality Penicillins Rash Active No Information codeine Other Active No Information Medications Medication Instructions Dosage Effective Dates (start - stop) Status Comments Celebrex 200 mg capsule take one capsule BID - Active clindamycin HCl 300 mg capsule take 1 capsule by oral route every 8 hours - Active Futuro Restoring Medium Knee high compression stockings, use daily for treatment of lymphedema and venous stasis. - Active clindamycin HCl 300 mg capsule TAKE 1 CAPSULE BY ORAL ROUTE 3 TIMES DAILY - Active celecoxib 100 mg capsule TAKE 1 CAPSULE BY ORAL ROUTE 2 TIMES EVERY DAY 100 MG - Active Percocet 5 mg-325 mg tablet take 1 - 2 by oral route every 4 - 6 hours as needed 1-2 - Active biotin 10,000 mcg capsule - Active Calcium 500 500 mg calcium (1,250 mg) tablet - Active Coumadin 10 mg tablet - Active Lamictal 200 mg tablet - Active MAGNESIUM (unknown strength) Not Available - Active MULTIVITAL (unknown strength) Not Available - Active gabapentin 400 mg capsule - Active Celebrex 200 mg capsule take one capsule BID - No Longer Active Procedures Procedure Date Asp/inject major joint or bursa w/o US g uidance Kenalog 40mg/mL Asp/inject major joint or bursa w/o US g uidance Kenalog 40mg/mL X-ray exam knee, 4+ views Office/outpatient visit,est, mod 2020 Asp/inject major joint or bursa w/o US g uidance Kenalog Triamcinolone acetonide inj X-ray exam knee, 4+ views Office/outpatient visit,est, mod 2019 Asp/inject major joint or bursa w/o US g uidance Kenalog Triamcinolone acetonide inj X-ray exam knee, 3 views Office/outpatient visit,est, mod 2019 Asp/inject major joint or bursa w/o US g uidance Kenalog Triamcinolone acetonide inj X-ray exam knee, 3 views Office/outpatient visit,est, mod 2018 Asp/inject major joint or bursa w/o US g uidance Kenalog Triamcinolone acetonide inj X-ray exam knee, 4+ views Office/outpatient visit,est, mod 2018 Kenalog Triamcinolone acetonide inj Asp/inject major joint or bursa w/o US g uidance X-ray exam knee, 3 views Office/outpatient visit,est, mod 2018 Repair Inter Wounds Scalp Trunk Extrem 2 .5 X-ray exam knee, 3 views Office/outpatient visit,est, mod 2018 X-ray exam knee, 3 views Global/Postop followup visit X-ray exam knee, 3 views Global/Postop followup visit X-ray exam knee, 3 views Global/Postop followup visit Global/Postop followup visit X-ray Exam, Femur 2 Views X-ray exam tib/fib, 2 views Office/outpatient visit,est, mod 2017 Office/outpatient visit,new, mod 2017 Asp/inject major joint or bursa w/o US g uidance Advance Directives Directive Yes / No Effective Date File Name No Information Encounters Encounter Description Practice Location Reason(s) For Visit Diagnoses Date Provider Providers Copied on Encounter [facility], [address], [id number], [place] tel:[phone] [facility] Right knee (chief complaint) Pain in right kneeUnilateral primary osteoarthritis, right knee 2 Myron Kline. [address], [id number] , [place]. tel:[phone] Referring Provider: Eliud Guadarrama, [address] [address], [place], [address]. tel:[phone] [facility], [address], [id number], [place] tel:[phone] [facility] right knee (chief complaint) Pain in right kneeUnilateral primary osteoarthritis, right knee 2 Myron Kline. [address] [facility], [address], [id number] , [place]. tel:[phone] Referring Provider: Eliud Guadarrama, [address] [address], [place], [address]. tel:[phone] Office/outpa tient visit,est, mod [facility], [address], [id number], [place] tel:[phone] [facility] right knee (chief complaint) Pain in right kneeUnilateral primary osteoarthritis, right knee 1 Elena vázquez. [address] [facility], [address], [id number] , [place]. tel: [phone] Referring Provider: Tamir Parra, [address] [facility] [address] [facility], [place], [address]. tel:[phone] Office/outpa tient visit,est, [facility], [address] [address], [place], [place], [id number], [place] tel:[phone] [facility] Right Knee (chief complaint) Unilateral primary osteoarthritis, right knee 0 Elena vázquez. [address] [facility], [address] [facility], [place], [place], [id number] , [place]. tel: [phone] Referring Provider: Tamir Parra, [address] [address], [place], [address]. tel:[phone] Office/outpa tient visit,est, [facility], [address] [place] [address], [id number], [place] tel:[phone] [facility] Left knee (chief complaint) Right knee (chief complaint) Presence of left artificial knee jointPain in right kneeUnilateral primary osteoarthritis, right knee 0 Myron Kline. [address] [facility], [address] [address], [place], [place], [id number] , [place]. tel: [phone] Referring Provider: Eliud Guadarrama, [address] [place] [address], [place], [address]. tel:[phone] [facility], [address], [id number], [place] tel:[phone] [facility] Presence of left artificial knee joint 9 Myron Kline. [address] [place] [address], [address] [address], [place], [place], [id number] , [place]. tel:[phone] Office/outpa tient visit,est, [facility], [address] [place] [address], [id number], [place] tel:[phone] [facility] Left Knee (chief complaint) Presence of left artificial knee jointPain in right kneeUnilateral primary osteoarthritis, right knee Sep- 9 Myron Kline. [address] [facility], [place], [place], [id number] , [place]. tel: [phone] Referring Provider: Eliud Guadarrama, [address] [facility] [address] [facility], [place], [address]. tel:[phone] Office/outpa tient visit,est, [facility], [address] [facility] [address], [place], [place], [id number], [place] tel:[phone] [facility] Left Knee (chief complaint) Laceration w/o foreign body of left knee, initial encounterPresen ce of left artificial knee jointPain in right kneeUnilateral primary osteoarthritis, right knee Horacio-0 9 Myron Kline. [address] [facility], [address] [address], [place], [place], [id number] , [place]. tel: [phone] Referring Provider: Eliud Guadarrama, [address] [facility] [address] [facility], [place], [address]. tel:[phone] Office/outpa tient visit,est, [facility], [address] [address], [place], [place], [id number], [place] tel:[phone] [facility] Left knee (chief complaint) Presence of left artificial knee jointLaceration w/o foreign body of left knee, initial encounter 9 Myron Kline. [address] [facility], [address], [place], [place], [id number] , [place]. tel: [phone] Referring Provider: Eliud Guadarrama, [address] [facility] [address] [facility], [place], [address]. tel:[phone] Office/outpa tient visit,est, [facility], [address] [address], [place], [place], [id number], [place] tel:[phone] [facility] Left knee (chief complaint) Presence of left artificial knee joint 9 Sanchesjanelle Kline. [address] [facility], [address] [facility], [place], [place], [id number] , [place]. tel: [phone] Referring Provider: Eliud Sanches M, [address] [facility] [address], [place], [address]. [phone] [facility], [address] [address], [place], [place], [id number], [place] [phone] [facility] Presence of left artificial knee joint 9 Elena vázquez. [address] [facility], [address] [address], [place], [place], [id number] , [place]. tel: [phone] [facility], [address], [id number], [place] [phone] [facility] No Information 8 Sanchesjanelle Kline. [address] [facility], [address], [place], [place], [id number] , [place]. tel: [phone] [facility], [address], [id number], [place] tel:[phone] [facility] Left knee (chief complaint) Presence of left artificial knee joint 8 Myron Kline. [address] [facility], [address], [id number] , [place]. tel: [phone] Referring Provider: Eliud Guadarrama, [address] [facility] [address] [facility], [place], [address]. [phone] [facility], [address], [id number], [place] tel:[phone] [facility] Left knee (chief complaint) Presence of left artificial knee joint 8 Sanchesjanelle Crowea. [address] [facility], [address], [id number] , [place]. tel: [phone] Referring Provider: Eliud Guadarrama, [address] [facility] [address], [place], [address]. tel:[phone] [facility], [address] [address], [place], [place], [id number], [place] [phone] [facility] Follow Up of Left knee (chief complaint) Presence of right artificial knee joint 8 Myron Kline. [address] [facility], [facility] [address], [place], [place], [id number] , [place]. tel: [phone] Referring Provider: Eliud Guadarrama, [address] [facility] [address] [facility], [place], [address]. [phone] [facility], [address] [address], [place], [place], [id number], [place] [phone] [facility] No Information 8 Brooke Bertrand. [address] [facility], [facility] [address], [place], [place], [id number] , [place]. tel: [phone] [facility], [address] [address], [place], [place], [id number], [place] tel:[phone] [facility] Left knee (chief complaint) Presence of right artificial knee joint 0 8 Myron Kline. [address] [facility], [address] [address], [place], [place], [id number] , [place]. 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 [address] [facility], [facility] [address], [place], [place], [id number] , [place]. 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 [address] [facility], [address], [place], [place], [id number] , [place]. tel: [phone] Referring Provider: Tamir Parra, [address] [facility] [address], [place], [address]. tel:[phone] Office/outpa tient visit,[facility], [facility], [address] [facility], [place], [place], [id number], [place] tel:[phone] [facility] left knee (chief complaint) Pain in left kneeMech loosening of internal left knee prosthetic joint, init 8 Elena Morin er. [address] [facility], [address], [place], [place], [id number] , [place]. tel: [phone] Referring Provider: Tamir Parra, [address] [facility] [address], [place], [address]. tel:[phone] Family History Family Member Type Diagnosis Age At Onset Mother Problem (finding) Osteoarthritis Mother Problem (finding) Cancer, unknown Mother Problem (finding) Stroke Mother Problem (finding) Heart Disease Mother Problem (finding) Blood disorder Father Problem (finding) Cancer, unknown Payers Payer name Insurance type Covered constitution party ID Authoriza tion(s) Medicare [place] W[place] Part B [id number] [facility] [id number] Social History Type Description Quantity Date Captured Comments Alcohol Use Details Unknown Caffeine Use Details Unknown Tobacco Use Status No Information Smoking Status Former smoker Non-Smoking Tobacco Use Details : No Details Available : No Details Available Sex Female Vital Signs Date / Time: Height Weight BMI Pulse Rate Blood Pressure Temperature Respiratory Rate Body Surface Area Head Circumference Head Circ. Percentile Wt./Justin. Percentile BMI percentile Pulse Ox Inhaled Ox 11:14 AM 62.00 in 117.934 kg (260.00 lbs) 47.5 5 kg/m eter (2) Chief Complaint And Reason For Visit From encounter dated '01/19/2022 10:50'. Right knee (chief complaint). Description: Radha is a pleasant 72-year-old female who presents tothe office for cortisone injection into the right knee for treatment of pain related to osteoarthritis. She is currently experiencing diffuse pain that is worsened with changes to whether and increases to activities, pain is mild to moderate and intermittent, however it is increasing to almost constant. It is managed with clxd-lun-[id number] pain medications and activity modifications. Denies injury, trauma, or fall since last office visit. Denies fever, chills, generalized feelings of illness or malaise. She is ambulating with the use of a cane at today's office visit. Reason For Referral Reason For Referral No Information Plan Of Treatment Date Type Action Status Referral Ordered: X-ray exam knee, 4+ views RT knee ordered Referral Ordered: X-ray exam knee, 3 views LT knee ordered Referral Ordered: X-ray exam knee, 3 views RT knee ordered Referral Ordered: X-ray exam tib/fib, 2 views LT ordered Referral Ordered: X-ray Exam, Femur 2 Views LT ordered History Of Present Illness Encounter Date Complaint History Of Prese nt Illness Right knee Radha is a ple asant 72-year-old female who presents to the office for cortisone injection into the right knee for treatment of pain related to osteoarthritis. She is currently experiencing diffuse pain that is worsened with changes to whether and increases to activities, pain is mild to moderate and intermittent, however it is increasing to almost constant. It is managed with ofrg-kea-diylrvp pain medications and activity modifications. Denies injury, trauma, or fall since last office visit. Denies fever, chills, generalized feelings of illness or malaise. She is ambulating with the use of a cane at today's office visit. right knee Radha is pleas ant 71 year old female who presents to the office for cortisone injection in to the right knee. Pain is diffusely located, moderate and constant in nature, and managed with acetaminophen and activity modification. Denies injury, trauma or fall since last office visit. She would like to discuss physical therapy. She is ambulating without assistive device at today's visit. right knee Radha is a 71 year-old female who presents to the office for evaluation of right knee pain. Right Knee Left knee Radha is a ple asant 69-year-old female who presents to the office today for ongoing evaluation of her left total knee arthroplasty revision with a hinged distal femoral replacing total knee prosthesis placed for treatment of loosening of femoral and tibial components of the original total knee arthroplasty and fracturing of the medial condyle of the femur, date of surgery 03/01/2018. Patient indicates that she still practices the exercises from the physical therapy, and tries to maintain a walking program for physical fitness. Patient endorses no pain in the left knee at today's office visit. She is having no difficulty with any activities. Patient has no complaints in regards to the left knee. Patient is ambulate and with the use of a cane at today's office visit. Right knee Radha is a ple asant 69 year old female who presents to the office today for treatment of the pain in right knee related to osteoarthritis. She last had injections into the right knee joint on 02/26/2019, and indicates that they worked well until approximately 1 month ago. Since that time she has been experiencing an increase in pain that is causing her difficulty with maintaining an adequate level of exercise, pain is worsened at night, and with ascending and descending stairs. Pain is diffusely located, is rated at a 2 or 3 out of 10 at today's visit, with a sharp, intermittent nature. Pain is well-managed with the use of injections, Tylenol, ice, heat, and rest. Patient would like to continue with injections at this time, and transition to total knee arthroplasty either later in 2019 or the beginning of 2020. Patient is ambulating with the use of a cane at today's office visit. Left Knee Radha is a ple asant 69-year-old female who presents to the office today for ongoing evaluation of her left total knee arthroplasty revision with a hinged distal femoral replacing total knee prosthesis placed for treatment of loosening of femoral and tibial components of the original total knee arthroplasty and fracturing of the medial condyle of the femur, date of surgery 03/01/2018. Patient indicates that she is having some significant weakness in the left lower extremity, and that she has had start being very careful with her ambulation as she is sustaining a number of falls. She has had to reduce her walking due to fear of injury. Patient endorses no pain in the left knee. She indicates that she is started having some pain in the right knee, but that the last knee injection which was given on 11/14/2018 worked well until approximately a month ago. Since that time she has developed significant pain in the right knee, with instability. She rates the pain in the right knee at a 3 out of 10 with a dull, occasional nature. She is experiencing giving way of the right knee causing her difficulty with ambulation. She is having difficulty with ascending and descending stairs, and walking. She does obtain relief of the pain with the use of rest. She would like to discuss resuming Celebrex for a few months. She indicates that she is starting to use a cane with all ambulation due to instability issues. Left Knee Radha is a ple asant 68 year old female who presents to the office today for evaluation of her left knee laceration. Patient is status post complicated left total knee arthroplasty revision, date of surgery 03/01/2019. She has been restricting her weight bearing and ambulating with the use of a walker, and restricting her range of motion in the left knee. The laceration has developed eschar over the entire length. Denies erythema, warmth, or streaking at the laceration site. Patient has developed pain in the right knee since the fall and is having difficulty with ambulation. The pain is located at the lateral joint line, bruising located at the lateral tibial condylar region, and tightness in the IT band. This is causing her significant difficulty with activity of daily living, she has had to reduce her normal level of activity and has had to modify her lifestyle to accommodate the pain. She rates the pain in the right knee at a 6/10 with a dull constant and sharp intermittent nature that is not well managed with the use of any interventions. She is ambulating with the use of a walker at today's office visit. Left knee Radha is a ple asant 68 year old female who presents to the office today for evaluation of her left knee. She is status post left total knee revision, date of surgery 03/01/2019. She indicates that while walking this morning she slid and fell off of a curb, landing on her knees on the concrete, cutting the left knee open. She indicates that she cleaned and is but she could, and applied Band-Aids to stop the bleeding. Denies head injury or loss of consciousness, however patient does have facial abrasions, and developed a bloody nose. Patient indicates that she immediately got in her car game to our office. Patient rates the pain in the left knee at a 7 out of 10 with a throbbing, burning nature. Patient is emulating without assistive device at today's visit. Left knee Radha is a ple asant 68-year-old female who presents to the office today for ongoing evaluation of her left total knee arthroplasty revision with distal femur replacement, date of surgery 03/01/2018. She indicates that she is done with physical therapy, and has transition to a gym membership at the therapy facility so that she can maintain use of the equipment that she was using during therapy. She indicates walking almost daily at the [employer] with an exercise group. She is experiencing some mild left quadriceps weakness and has started working on weight training to increase the strength of this musculature. She denies pain in the left knee. She has completed the course of antibiotics and would like to know if she needs to resume them. She is ambulating without assistive device at today's visit. Vince knee Radha is a ple asant 68 year old female who presents today for 3 month follow-up of her left total knee arthroplasty revision, date of surgery 03/01/2018. She is still in therapy and feels that it is going well. She has steadily increased her physical activity since her surgical date and indicates that she is having no difficulty with this. She endorses experiencing no pain at today's visit. She is ambulating without assistive device at today's visit. Vince knee Radha is a ple asant 68 year old female who presents today for ongoing evaluation of her left total knee arthroplasty revision for mechanical loosening of the original prosthesis, date of surgery 03/01/2018. She has been participating in physical therapy and feels that it is going very well. She would like to know when she can resume aquatic therapy. She would like to know if it is okay for her to start joining the local walking group daily, which walks around [address] [place] [address] [place] during cold weather. She is experiencing no pain at today's visit. She is ambulating with a cane at today's visit, but indicates that she frequently leaves it behind and forgets it. Follow Up of Left knee Radha bill s a pleasant 68 year old female who presents today for ongoing post operative evaluation of her left total knee arthroplasty revision with a distal femoral replacement, date of surgery 03/01/2018. She has been participating in physical therapy and feels that it is going well. She is on assisted coumadin therapy, with a stable INR, for DVT prophylaxis. She is taking doxycycline for prophylactically for surgical site infection prevention. She has a resolving burn from the use of ice on the left knee for treatment of pain and swelling. She has significant left lower extremity venous stasis and some edema that she indicates she is wearing compression stockings for treatment of. She is experiencing pain in the left knee that she rates at a 3/10 with a dull, aching nature that she is treating with [place] 5/325mg tablets, rest, ice, and elevation. She is ambulating with a walker at today's visit, and accompanied to the visit by her grandson. Left knee Radha is a ple asant 68 year old female who presents today for initial post operative evaluation of her left total knee arthroplasty, date of surgery 03/01/2018. She has been participating in physical therapy, in her home, and feels that it is going well. She is taking coumadin for DVT prophylaxis, and her INR from 03/18/2018 was 2.5 per the patient. She has the sutures removed by a home health nurse who thought that she left a portion of one in her leg and wanted her to come in and be evaluated by our office. She is experiencing an increase in redness at the knee due to using the polar care without a protective barrier between the ice pad and her leg and now has a burn. She is experiencing pain with physical therapy and with ambulation that she rates at a 3 or 4/10 with a burning, stretching sensation. She is using percocet for pain management. She is ambulating with a walker at today's visit, and accompanied to the visit by her daughter in law. left knee Radha is a ple asant 68-year-old female, she presents today with evaluation of her left knee. She is undergone 3 knee arthroplasties at this time. She reports initially undergoing a partial knee replacement on the left knee and [place], that undergoing a revision by Dr. Carpenter. And then a further revision by Dr. Carpenter. Currently she has a failed Taj triathlon arthroplasty in place. The tibia and femur both loose, there is a fracture of the medial condyle, but appears to be fixated with cement. She walks with a walker in significant pain. She has a history of DVT, with protein C&S deficiency requiring Coumadin anticoagulation. She has had 3 DVTs in the past. She has come off of her Coumadin in the past for surgery. She has some venous stasis changes in her left tibia which she states has been present since she was younger due to history of chronic DVT. She presents with records from Dr. Carpenter. These demonstrate that the knee was aspirated and no infection was present at 48 hours of culture I do not see cell counts present. Additionally, she had a 3 stage bone scan which showed abnormal periprosthetic activity around the distal femur and the tibia as well.Radiographic review from an outside source demonstrate a Taj triathlons revision knee arthroplasty. The femoral and tibial stems appear to be rather undersized with no cortical opposition in the AP or lateral planes. There is a mismatch of the femoral prosthesis of the femoral diaphysis. The medial femoral condyle appears to be fractured. There appears to be a large amount of cement a reconstructing the medial femoral condyle. The patella is well in the joint line has been lowered. Impression: Failed left knee revision Functional Status Date Functional Assessmen t No Information Instructions Date Instruction Additional Infor melvin Verbal consent for t he procedure was obtained. The patient was seated with the knees bent to 90 degrees of flexion. The right knee was prepped with alcohol and chlorhexidine. The skin was anesthetized with Ethyl Chloride spray and a 22 gauge needle was used to introduce 40 mg of Kenalog and 3 mL of 1% Lidocaine plain into the knee joint. The area of injection was then cleaned and a sterile bandage was placed. The procedure was completed without complication, and was well tolerated by the patient. Patient was educated on post injection care instructions and discharged in stable condition. Dictation completed with Shopperception Edition software, grammatical variances in spelling errors may inadvertently occur. Related to Unilateral primary osteoarthritis, right knee Verbal consent for t he procedure was obtained. The patient was seated with the knees bent to 90 degrees of flexion. The right knee was prepped with alcohol and chlorhexidine. The skin was anesthetized with Ethyl Chloride spray and a 22 gauge needle was used to introduce 40 mg of Kenalog and 3 mL of 1% Lidocaine plain into the knee joint. The area of injection was then cleaned and a sterile bandage was placed. The procedure was completed without complication, and was well tolerated by the patient. Patient was discharged in stable condition. Related to Unilateral primary osteoarthritis, right knee Verbal consent for t he procedure was obtained. The patient was seated with the knees bent to 90 degrees of flexion. The right knee was prepped with alcohol and chlorhexidine. The skin was anesthetized with Ethyl Chloride spray and a 22 gauge needle was used to introduce 40 mg of Kenalog and 3 mL of 1% Lidocaine plain into the knee joint. The area of injection was then cleaned and a sterile bandage was placed. The procedure was completed without complication, and was well tolerated by the patient. Related to Unilateral primary osteoarthritis, right knee Verbal consent for t he procedure was obtained. The patient was seated with the knees bent to 90 degrees of flexion. The right knee was prepped with alcohol and chlorhexidine. The skin was anesthetized with Ethyl Chloride spray and a 22 gauge needle was used to introduce 40 mg of Kenalog and 3 mL of 1% Lidocaine plain into the knee joint. The area of injection was then cleaned and a sterile bandage was placed. The procedure was completed without complication, and was well tolerated by the patient. Related to Unilateral primary osteoarthritis, right knee Verbal consent for t he procedure was obtained. The patient was seated with the knees bent to 90 degrees of flexion. The right knee was prepped with Chlorhexidine. The skin was anesthetized with Ethyl Chloride spray and a 22 gauge needle was used to introduce 40 mg of Kenalog and 3 mL of 1% Lidocaine plain into the knee joint. The area of injection was then cleaned and a sterile bandage was placed. The procedure was completed without complication, and was well tolerated by the patient. Related to Unilateral primary osteoarthritis, right knee Verbal consent was o btained from the patient. The left knee laceration was cleansed with sterile water. The left knee was cleansed with chlorhexidine and a 22-gauge needle was used to introduce 2 mL's of 1% lidocaine plain to the superficial laceration of the left knee. Sterile gloves were use to again cleanse the left knee with chlorhexidine, and a sterile drape was applied. 3-0 Monocryl on a PS to needle was used 2 suture the laceration in a sterile fashion. Xeroform, 4 x 4's, and an ABD dressings were applied. The procedure was completed without difficulty or complication, and was well tolerated by the patient. Related to Laceration w/o foreign body of left knee, initial encounter Procedure note: With the patient seated on the examining table in the left knee in extension, the skin was prepped with Betadine and alcohol. 5 cc of lidocaine was used to anesthetize the lateral portal. We then reprepped the skin with Betadine and alcohol. Sterile gloves were applied, an 18-gauge spinal needle was used to palpate the prosthesis. I then aspirated about 10 cc of synovial fluid from the knee. This was sent for cell count, differential, Gram stain, culture and crystals. 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 Continuation of conservative treatments, risks and benefits of cortisone, medication management, bracing were discussed. Patient demonstrates appropriate understanding and wishes to proceed with cortisone injection into the right knee. She would like to transition back to Celebrex instead of dzbr-qsd-jbyeyyh pain medications and will follow up with her primary care for appropriate lab work as needed. She will follow up with our office as needed Patient Care Teams Name Effective Dates (start - stop) Status Members No Information
[2025-03-26 17:40] VITALS: BP 127/72; PULSE 78; RESP 22; TEMP 36.8; O2SAT 92
--- OUTSIDE RECORDS SUMMARY | 2025-03-26 17:43 | XMS_ITS | Clinical Summary ---
Author Organization [employer] Address [address] [facility] Attn: Epic Prelude ADT REJI ZAMBRANO [phone] Care Team Providers Care Figure Clerk Name Role Phone Danni Jesus MD Primary [...] on file Legal Sex Female 1:51 PM POLITICAL THEORY PROFESSOR Gender Identity Not on file Sexual Orientation Not on file Last Filed Vital Signs Vital Sign Reading Time Taken Comments Blood Pressure 137/63 07/12/2014 7:43 PM POLITICAL THEORY PROFESSOR Pulse 81 07/12/2014 7:43 PM POLITICAL THEORY PROFESSOR Temperature 36.8 C (98.2 F) 07/12/2014 5:00 PM POLITICAL THEORY PROFESSOR Respiratory Rate 19 07/12/2014 7:43 PM POLITICAL THEORY PROFESSOR Oxygen Saturation - - Inhaled Oxygen Concentration - - Weight 119.7 kg (264 lb) 07/12/2014 5:00 PM POLITICAL THEORY PROFESSOR Height 157.5 cm (5' 2 ) 07/12/2014 5:00 PM POLITICAL THEORY PROFESSOR Body Mass Index 48.29 07/12/2014 5:00 PM POLITICAL THEORY PROFESSOR Plan of Treatment Health Maintenance Due Date Last Done Comments DTAP/TDAP/TD VACCINES (1 - Tdap) 01/06/1968 PNEUMOCOCCAL VACCINE 50+ YEARS (1 of 1 - PCV) 01/05/19 99 ZOSTER VACCINE (1 of 2) 1999 OSTEOPOROSIS SCREENING 2014 RSV VACCINE (60+ or ) (1 - 1-dose 75+ series) 01/06/2024 INFLUENZA VACCINE (#1) 2025 Care Teams Figure Clerk Relationship Specialty Start Date End Date Danni Jesus MD [address] [place] [phone] PCP - General Family Practice 07/12/14
--- OUTSIDE RECORDS SUMMARY | 2025-03-26 17:43 | XMS_ITS | Clinical Summary ---
Author Organization [facility] Address [address] [place] [address] Care Team Providers Care Certified Coding Specialist Name Role Phone Danni Jesus MD Primary [...] on file Legal Sex Female 1:08 PM ER REGISTRAR Gender Identity Not on file Sexual Orientation Not on file Last Filed Vital Signs Vital Sign Reading Time Taken Comments Blood Pressure 137/63 07/12/2014 7:43 PM ER REGISTRAR Pulse 81 07/12/2014 7:43 PM ER REGISTRAR Temperature 36.8 C (98.2 F) 07/12/2014 5:00 PM ER REGISTRAR Respiratory Rate 19 07/12/2014 7:43 PM ER REGISTRAR Oxygen Saturation 96% 07/12/2014 7:43 PM ER REGISTRAR Inhaled Oxygen Concentration - - Weight 119.7 kg (264 lb) 07/12/2014 5:00 PM ER REGISTRAR Height 157.5 cm (5' 2 ) 07/12/2014 5:00 PM ER REGISTRAR Body Mass Index 48.29 07/12/2014 5:00 PM ER REGISTRAR Plan of Treatment Health Maintenance Due Date Last Done Comments DTAP/TDAP/TD VACCINES (1 - Tdap) 01/06/1968 PNEUMOCOCCAL VACCINE 50+ YEARS (1 of 1 - PCV) 01/05/19 99 ZOSTER VACCINE (1 of 2) 1999 OSTEOPOROSIS SCREENING 2014 RSV VACCINE (60+ or ) (1 - 1-dose 75+ series) 01/06/2024 INFLUENZA VACCINE (#1) 2025 Insurance MEDICARE PART A AND B [employer] Care Teams Certified Coding Specialist Relationship Specialty Start Date End Date Danni Jesus MD [address] [place] [phone] PCP - General Family Practice 07/12/14
--- NOTE | 2025-03-26 18:27 | ECG_ITS ---
Gtxh Test Date: 2025-03-26 Pat Name: Radha Vega Department: Room: Gender: Female Vat Cleaner: : 1950 Requested By: Huey Hardy Order Number: [id number] Benigno MD: Alfonso Davies M.D. Measurements Intervals [place] Rate: 80 P: 14 WA: 162 QRS: 19 QRSD: 75 T: 47 QT: 373 QTc: 431 Interpretive Statements SINUS RHYTHM LOW QRS VOLTAGE IN PRECORDIAL LEADS [QRS DEFLECTION < 1.0 mV IN CHEST LEADS] NONSPECIFIC T-WAVE ABNORMALITY No previous ECG available for comparison Electronically Signed On 03-28-2025 12:09:15 CDT by Alfonso Davies M.D. [email or web address]
--- NOTE | 2025-03-26 18:41 | XR_ITS ---
WS: [id number] XR chest 1V portable [id number] REASON FOR EXAM: shortness of breath FINDINGS: No recent chest x-ray for comparison. Moderate tortuosity of the ascending and descending thoracic aorta. The heart size is at the upper limits of normal. There there is opacification of the left lower hemithorax. This is due to left lower lobe atelectasis and left pleural effusion. The findings were present on the CT scan of the abdomen and pelvis 03/11/2025. No other significant pulmonary parenchymal or pleural abnormality. Scoliosis and significant degenerative spondylosis in the thoracic spine. XR/XR chest 1V portable [id number] IMPRESSION: Left pleural effusion and left lower lung atelectasis. Not able to determine pr ogressive from 03/11/2025.
[2025-03-26 18:57] VITALS: BP 134/90; PULSE 81; RESP 16; O2SAT 98
[2025-03-26 19:00] VITALS: BP 146/72; PULSE 79; RESP 16; O2SAT 97
[2025-03-26] MEDS: FUROsemide 10 mg/mL SDV 4mL 40 MG IVP (19:20)
[2025-03-26 19:26] LABS: Hematocrit 32.9 % (36-47); Hemoglobin 9.90 g/dL (11.27-16.99); Mean Corpuscular HGB Conc 30.1 g/dL (30-55); Mean Corpuscular Hemoglobin 26.0 pg (27-33); Mean Corpuscular Volume 86.4 fl (85-98); Nucleated Red Blood Cells % 0 %; Platelet Count 332 10^3/cmm (157-399); Red Blood Count 3.81 10^6/uL (3.85-5.65); White Blood Count 8.61 10^3/uL (3.29-11.43)
[2025-03-26 19:30] LABS: INR 1.32 (0.8-1.2); Prothrombin Time 17.30 SECONDS (12.1-14.9)
[2025-03-26 19:31] LABS: Partial Thromboplastin Time 37.8 SECONDS (23.9-36.7)
--- NOTE | 2025-03-26 19:31 | ED_ITS ---
HPI - SOB/Dyspnea 2 General: Chief Complaint: Shortness of Breath/Dyspnea Stated Complaint: SOB Lower chest pressure Time Seen by Provider: 03/26/25 18:12 History of Present Illness: HPI Narrative: 75 yo F with metastatic cancer of unknow n primary presents with progressive shortness of breath and abdominal distension/pressure. She had paracentesis ~2 weeks ago at [facility] with 3.3 L removed and symptomatic relief; now feels recurrent fullness with rib pressure and dyspnea, worse when sitting up or walking across her apartment. CT A/P on 03/11 showed small-volume ascites with metastatic soft-tissue deposits under the mesentery. Cytology from prior ascitic fluid was positive for malignant cells. Warfarin was stopped; she started Eliquis (apixaban) on Sunday after hematology adjusted anticoagulation due to prior ?blood too thin,? which also delayed biopsy and drainage. New bilateral leg swelling began Sunday; she notes morning and nocturnal cough with wheeze, and difficulty lying flat; family is concerned about COPD. PET is scheduled tomorrow; colonoscopy/biopsy and port placement are planned next Sunday. Denies other acute concerns beyond dyspnea and abdominal pressure. Related Data Home Medications ?Medication ?Instructions ?Recorded ?Confirmed magnesium 200 mg tablet 400 mg PO DAILY 04/14/21 calcium carbonate (Calcium 600) 600 mg PO DAILY 03/23/25 msctaisr-unt-uabdz ac 400 1 tab PO DAILY 03/11/2503/11 mcg-calcium carb 500 mg-vit K1 20 mcg tablet turmeric 400 mg capsule 400 mg PO DAILY 03/11/25 Previous Rx's ?Medication ?Instructions ?Recorded warfarin 10 mg tablet 10 mg PO .COMPLEX as directe d #30 07/22/24 tabs warfarin 5 mg tablet See Rx Instructions .Route 0 12/30/24 .COMPLEX #30 tabs escitalopram oxalate 10 mg tablet 10 mg PO DAILY #30 t abs 02/24/25 (Lexapro) ondansetron 4 mg disintegrating 4 mg PO Q6H PRN nausea and 03/12/25 tablet vomiting #30 tabs hydrocodone 5 mg-acetaminophen 325 1 tab PO Q6H PRN pa in 2 weeks #30 03/14/25 mg tablet tabs enoxaparin 40 mg/0.4 mL 40 mg (0.4 mL) SUBCUT DAILY #4 mL 03/16/25 subcutaneous syringe (Lovenox) apixaban 5 mg tablet (Eliquis) 5 mg PO BID #60 tabs furosemide 40 mg tablet (Lasix) 40 mg PO DAILY #10 tab s 03/26/25 Allergies Allergy/AdvReac Type Severity Reaction Status Date / Time adhesive tape Allergy rash Verified 03/23/25 15:00 codeine Allergy Seizures Verified 03/23/25 15:00 Penicillins Allergy Rash Verified 03/23/25 15:00 PFSH ED 2 PFSH: Medical History (Updated 03/26/25 @ 20:22 by Sanju Carpenter DO) [employer] (current) use of anticoagulants Fatty liver Fatigue Hyperlipidemia Elevated C-reactive protein (CRP) Factor 5 Leiden mutation, heterozygous Trigeminal neuralgia of right side of face Surgical History History of brain surgery Trigeminal neuralgia repair of right side of face--non aggressive procedure History of appendectomy History of cholecystectomy Hx of breast surgery removal of a cyst-right side Hx of removal of cyst right calf Status post revision of total replacement of left knee Family History Mother Bleeding disorder factor 5 CAD (coronary artery disease) Cancer unsure but thinks it was UTERINE CANCER Stroke mini strokes Father Cancer Lung Hypertension Denies family history of Diabetes Clotting disorder Hyperlipidemia Chronic kidney disease (CKD) Thyroid disease Social History Smoking and tobacco/nicotine status: never used tobacco/nicotine Quit status (tobacco/nicotine): has quit using Year quit tobacco: 1970 Second hand smoke exposure: Yes Alcohol intake: current Alcohol intake frequency: holidays/special occasions only Substance/Drug Use: never Physical Exam 2 Const: COMMON NORMALS: no acute distress, patient oriented x3 and alert HENMT: COMMON NORMALS: normocephalic and atraumatic HEAD & SCALP: n ormocephalic and atraumatic Eye: COMMON NORMALS: Equal, round and reactive pupils present, EOMs intact bilaterally and no scleral icterus PUPIL: Yes Equal, round and reactive pupils present Resp: OTHER: Crackles at bases; decreased breath sounds in bilateral lower lobes. No respiratory distress. No tachypnea or increased work of breathing Cardio: COMMON NORMALS: regular rate, regular rhythm and No murmurs present (Cardio) RATE: regular rate RHYTHM: regular rhythm GI: OTHER: Protuberant, not firm; mild left upper quadrant tenderness; pain in left upper quadrant musculature with deep inspiration. Extremity: OTHER: 2+ pitting edema to mid-thighs. Neuro: COMMON NORMALS: patient oriented x3 SENSORIUM/ORIENTATION: Yes alert Skin: COMMON NORMALS: no rashes or lesions noted GENERAL SKIN EXAM: no rashes or lesions noted Course 2 Vital Signs: Vital signs: Vital Signs Temperature 98.2 F 03/26/25 17:40 Pulse Rate 79 03/26/25 19:00 Respiratory Rate 16 03/26/25 19:00 Blood Pressure 146/72 03/26/25 19:00 Pulse Oximetry 97 03/26/25 19:00 Oxygen Delivery Me thod Room Air 03/26/25 18:57 MDM - SOB/Dyspnea Medical Decision Making 75 yo F with metastatic cancer of unknown primary presents with recurrent abdominal distension and shortness of breath. Prior paracentesis 2 weeks ago (3.3 L) gave relief; symptoms recurred with new leg edema and orthopnea, cough, and wheeze. On Eliquis (apixaban) since Sunday after warfarin was stopped. PE: protuberant but soft abdomen with mild left upper quadrant tenderness to palpation and inspiratory left upper quadrant discomfort; bibasilar crackles with decreased bases; 2+ pitting edema to mid-thighs. Prior results: CT A/P 03/11 with small ascites and mesenteric metastatic deposits. Prior ascitic fluid cytology positive for malignant cells. No new labs/imaging today reported. Shortness of breath likely multifactorial: volume overload with peripheral edema suggesting pulmonary congestion; ascites contributing to diaphragmatic restriction. Anticoagulation on Eliquis (apixaban) impacts paracentesis safety. [DDx Not Available] beyond this provider discussion. Plan: check coagulation studies (INR/PT), BNP, and obtain chest X-ray. Consider paracentesis if coagulation parameters allow. Administer Lasix (furosemide) to reduce volume overload; bedside commode for convenience. Proceed with PET tomorrow; biopsy/colonoscopy and port placement next week. Symptom measures discussed: head-of-bed elevation and we will give her a short course of Lasix. We discussed fluid intake restriction and low-salt diet. She appears been told to drink is much as possible and feels that doing so may have put her in the situation. I agree. We discussed that there we will be happy medium she will need to find and that for at least the short-term Lasix will be beneficial to her. She shows good understanding and agrees to the plan Lab Data 03/26/25 19:00 03/26/25 19:00 Labs/Radiology: Laboratory Results WBC 8.61 10^3/uL (3.29-11.43) 03/26/25 19:00 RBC 3.81 10^6/uL (3.85-5.65) L 03/26/25 19:00 Hgb 9.90 g/dL (11.27-16.99) L 03/26/25 19:00 Hct 32.9 % (36-47) L 03/26/25 19:00 MCV 86.4 fl (85-98) 03/26/25 19: MCH 26.0 pg (27-33) L 03/26/25 19: MCHC 30.1 g/dL (30-55) 03/26/25 19:00 RDW 16.6 % (12.1-15.1) H 03/26/25 19:00 Plt Count 332 10^3/cmm (157-399) 03/26/25 19:00 MPV 9.9 fL (7.4-10.4) 03/26/25 19:00 Neut % (Auto) 83.5 % 03/26/25 19:00 Lymph % (Auto) 5.2 % 03/26/25:00 Perry % (Auto) 8.2 % 03/26/25 19:00 Eos % (Auto) 2.1 % 03/26/25 19:00 Baso % (Auto) 0.5 % 03/26/25 19:00 Neut # (Auto) 7.19 10^3/uL (1.8-7.7) 03/26/25 19:00 Lymph # (Auto) 0.5 10^3/uL (0.8-4.8) L 03/26/25 19:00 Perry # (Auto) 0.7 10^3/uL (0.2-0.9) 03/26/25 19:00 Eos # (Auto) 0.2 10^3/uL (0.0-0.8) 03/26/25 19:00 Baso # (Auto) 0.0 10^3/uL (0.0-0.1) 03/26/25 19:00 Nucleated RBC % (auto) 0 % 03/26/25 19:00 Nucleated RBCs # 0.0 /100WBC 03/26/25 19:00 PT 17.30 SECONDS (12.1-14.9) H 03/26/25 19:00 INR 1.32 (0.8-1.2) H 03/26/25 19:00 APTT 37.8 SECONDS (23.9-36.7) H 03/26/25 19:00 Sodium 140 mmol/L (136-145) 03/26/25 19:00 Potassium 4.2 mmol/L (3.5-5.1) 03/26/25 19:00 Chloride 104 mmol/L (98-107) 03/26/25 19:00 Carbon Dioxide 25 mmol/L (22-29) 03/26/25 19:00 Anion Gap 15.2 (5-19) 03/26/25 19:00 BUN 10 mg/dL (8-23) 03/26/25 19:00 Creatinine 0.7 mg/dL (0.5-0.9) 03/26/25 19:00 GFR Calculation Not Reportable 03/26/25 19:00 Glucose 97 mg/dL (65-115) 03/26/25 19:00 Calculated Osmolality 289 mOsm/kg (285-295) 03/26/25 19:00 Calcium 8.3 mg/dL (8.5-10.5) L 03/26/25 19:00 Total Bilirubin 0.4 mg/dL (0.15-1.2) 03/26/25 19:00 AST 11 U/L (0-32) 03/26/25 19:00 ALT 7 U/L (0-33) 03/26/25 19:00 Alkaline Phosphatase 65 U/L (35-105) 03/26/25 19:00 NT-Pro-B Natriuret Pep 558 pg/mL (0-450) H 03/26/25 19:00 Total Protein 6.0 g/dL (6.6-8.7) L 03/26/25 19:00 Albumin 3.0 g/dL (3.5-5.2) L 03/26/25 19:00 Globulin 3.0 g/dL (1.3-4.6) 03/26/25 19:00 All radiology interpretation(s) finalized by discharge EKG Data EKG 1: Interpretation: EKG interpreted by me: Time?1826?sinus rhythm, rate of 80, no ST segment elevation or depression, no T wave inversions, QTc = 431 Discharge Plan Discharge Patient Disposition: Home Clinical Impression: LING (dyspnea on exertion), Elevated brain natriuretic peptide (BNP) level, 2+ pitting edema Condition: Stable Prescriptions: New furosemide [Lasix] 40 mg tablet 40 mg PO DAILY Qty: 10 0RF No Action magnesium 200 mg tablet 400 mg PO DAILY escitalopram oxalate [Lexapro] 10 mg tablet 10 mg PO DAILY Qty: 30 11RF ondansetron 4 mg tablet,disintegrating 4 mg PO Q6H PRN (Reason: nausea and vomiting) Qty: 30 3RF Eliquis 5 mg tablet 5 mg PO BID Qty: 60 3RF warfarin 10 mg tablet 10 mg PO .COMPLEX Qty: 30 11RF Rx Instructions: 10 mg PO given on Tuesdays, , Saturdays and Sundays; warfarin 5 mg tablet See Rx Instructions .ROUTE .COMPLEX Qty: 30 11RF Dose Instruction: TAKE 1 TABLET BY MOUTH ON MONDAYS, WEDNESDAYS, AND FRIDAYS Rx Instructions: TAKE 1 TABLET BY MOUTH ON MONDAYS, WEDNESDAYS, AND FRIDAYS hydrocodone-acetaminophen 5-325 mg tablet 1 tab PO Q6H PRN (Reason: pain) 14 Days Qty: 30 0RF enoxaparin [Lovenox] 40 mg/0.4 mL syringe 40 mg SUBCUT DAILY Qty: 4 0RF calcium carbonate [Calcium 600] 600 mg calcium (1,500 mg) Tablet 600 mg PO DAILY One-A-Day Women's 50 Plus 400 mcg-500 mg calcium-20 mcg Tablet 1 tab PO DAILY turmeric 400 mg Capsule 400 mg PO DAILY Discharge Orders: Discharge ED (Routine); Ordered 03/26/25 Ordered By: Sanju Carpenter Referrals: Niko Lomax MD [Primary Care Provider, Family Practice] Discharge Diet: Low Salt Discharge Activity: Increase activity as tolerated Patient Instructions: Pulmonary Edema (ED), Patient Portal & Rosie Instructions Print Language: Persian Coding Level of Care Code ED [employer] Lineworker for Lakesha Kendrick
[2025-03-26 19:46] LABS: Alanine Aminotransferase 7 U/L (0-33); Albumin Level 3.0 g/dL (3.5-5.2); Alkaline Phosphatase 65 U/L (35-105); Anion Gap 15.2 (5-19); Aspartate Amino Transferase 11 U/L (0-32); Blood Urea Nitrogen 10 mg/dL (8-23); Calcium 8.3 mg/dL (8.5-10.5); Carbon Dioxide 25 mmol/L (22-29); Chloride 104 mmol/L (98-107); Creatinine Clr Calc Pharmacy 75.8559; Globulin 3.0 g/dL (1.3-4.6); Glucose 97 mg/dL (65-115); NT Pro B Type Natriuretic Pept 558 pg/mL (0-450); Osmolality Calculated 289 mOsm/kg (285-295); Potassium 4.2 mmol/L (3.5-5.1); Sodium 140 mmol/L (136-145); Total Protein 6.0 g/dL (6.6-8.7)
== END 2025-03-26 20:33 | disposition home or self-care (01) ==
PROVIDERS: Emergency Provider Student in an Organized Health Care Education/Training Program; PCP Family Medicine
DX: R06.09 Other forms of dyspnea (principal); R60.9 Edema, unspecified; Z79.01 Long term (current) use of anticoagulants; Z87.891 Personal history of nicotine dependence; E78.5 Hyperlipidemia, unspecified
CPT/HCPCS: 36415; 71045; 80053; 83880; 85025; 85610; 85730; 93005; 96374; 99285; J1938

== ENCOUNTER 2025-03-27 15:00 | Oncology outpatient (recurring) (ONCR) | payer MEDICARE, SELFPAY ==
[2025-03-23 16:07] LABS: Hematocrit 35.9 % (36-47); Hemoglobin 10.90 g/dL (11.27-16.99); Mean Corpuscular HGB Conc 30.4 g/dL (30-55); Mean Corpuscular Hemoglobin 26.3 pg (27-33); Mean Corpuscular Volume 86.7 fl (85-98); Nucleated Red Blood Cells % 0 %; Platelet Count 345 10^3/cmm (157-399); Red Blood Count 4.14 10^6/uL (3.85-5.65); White Blood Count 9.83 10^3/uL (3.29-11.43)
[2025-03-23 16:17] LABS: INR 1.33 (0.8-1.2); Prothrombin Time 17.40 SECONDS (12.1-14.9)
[2025-03-23 16:28] LABS: Carcinoembryonic Antigen 0.4 ng/mL (0.0-4.7)
[2025-03-23 16:32] LABS: Alanine Aminotransferase 8 U/L (0-33); Albumin Level 3.0 g/dL (3.5-5.2); Alkaline Phosphatase 62 U/L (35-105); Anion Gap 13.8 (5-19); Aspartate Amino Transferase 13 U/L (0-32); Blood Urea Nitrogen 13 mg/dL (8-23); CA 125 583.5 U/mL (0-35); Calcium 8.3 mg/dL (8.5-10.5); Carbon Dioxide 24 mmol/L (22-29); Chloride 103 mmol/L (98-107); Creatinine Clr Calc Pharmacy 67.4275; Globulin 3.1 g/dL (1.3-4.6); Glucose 108 mg/dL (65-115); Osmolality Calculated 285 mOsm/kg (285-295); Potassium 3.8 mmol/L (3.5-5.1); Sodium 137 mmol/L (136-145); Total Protein 6.1 g/dL (6.6-8.7)
--- NOTE | 2025-03-27 15:00 | PETR_ITS ---
PROCEDURE INFORMATION: Exam: PET/CT Skull Base to Mid-thigh Exam date and time: 03/27/2025 4:10 PM Age: 75 years old Clinical indication: Condition or disease; Primary cancer: Peritoneal carcinomatosis; Prior surgery; Surgery date: 6+ months; Surgery type: Gb, appy LABS AND CLINICAL REPORTS: Glucose: 124 mg/dl Treatment strategy for malignancy (PET staging): Initial Staging (PI) TECHNIQUE: Imaging protocol: Following at least four-hour fasting and following the injection of radiopharmaceutical, low dose CT images were obtained. Then, PET images were obtained. Attenuation corrected images were constructed using the CT scan. Fused images of PET and CT were reviewed. The standardized uptake values (SUV) reported below are maximum values within a region of interest, expressed in gm/ml. Exam includes orbital meatal line to mid-thigh. SUV normalization method: BodyWeight Radiopharmaceutical: 10.62 mCi F-18 FDG (Fluorodeoxyglucose), IV. Time of imaging post radiopharmaceutical administration: 46 minutes Injection site: LEFT AC COMPARISON: CT abdomen pelvis w con* [id number] 03/11/2025 7:57 AM FINDINGS: Brain: Visualized brain has normal physiologic uptake. Paranasal sinuses: Moderate non radiotracer avid mucosal thickening in the left maxillary sinus is present compatible with chronic sinusitis. Pharynx: No abnormal uptake. Larynx: No abnormal uptake. Lungs, pleura and trachea: No abnormal uptake. A moderate to large left pleural effusion is present. Non radiotracer avid areas of dependent streaky density in the left lower lobe are noted. Respiratory motion artifact is present. Heart: Normal physiologic uptake. Mediastinal space: No abnormal uptake. Liver: No abnormal uptake. Gallbladder and biliary ducts: No abnormal uptake. Cholecystectomy surgical clips are present. Pancreas: No abnormal uptake. Spleen: No abnormal uptake. Adrenal glands: No abnormal uptake. Kidneys and ureters: Similar moderate prominence of the right intrarenal collecting system and right renal pelvis. There continued to be nonobstructing layering stones in the right renal pelvis. Stomach and bowel: There is uptake along the inferior margin of the proximal stomach possibly contiguous with the gastric wall, where there is ill-defined peritoneal soft tissue density measuring approximately 5.6 x [address] image 131, SUV max 14.4. Intraperitoneal and retroperitoneal spaces: Moderate to large abdominal and pelvic ascites is present. Multifocal regions of radiotracer avid peritoneal soft tissue density nodularity are identified in the abdomen and pelvis. Examples: Ill-defined streaky density inferior to the diaphragm and superior to the left lobe of the liver, SUV max 7.9 on image 116; in the mesentery of the left upper quadrant measuring 8.6 x 2.4 cm on image 141, SUV max 15.0; anterior abdomen adjacent to the transverse colon where there is ill-defined streaky density, SUV max 18.8 on image 147; right pelvis in the region of ill-defined soft tissue density measuring approximately 6.1 x 3.1 cm on image 217, SUV max 15.7. This soft tissue density extends into the region of the cul-de-sac measuring 4.8 x [address] image 222. Vasculature: No abnormal uptake. There are multifocal regions of atherosclerotic calcification. An inferior vena cava filter is present. Lymph nodes: A pretracheal lymph node measuring 1.3 cm in short axis on series 202 image 77 demonstrates an SUV max 2.5. Uptake within an inferior medial right hilar lymph node measuring 1.1 cm in short axis on series 202, image 92 is present, SUV max 3.3. Skeleton: A left femoral shaft intramedullary ramakrishna is partially imaged. Small foci probable inflammatory uptake in the proximal left femoral shaft adjacent to the proximal aspect of the prosthesis is noted, SUV max 4.4 on image 256 and a similar physiologic appearing uptake in the contralateral proximal right femoral shaft. Degenerative changes throughout the spine are noted. Soft tissues: No abnormal uptake in the visualized head, neck, chest, abdomen, pelvis, and extremities. METRICS: Mediastinal blood pool: SUV max 3.0, SUV mean 2.6 Liver uptake: SUV max 3.4, SUV mean 2.8 PET/PET skull to thigh INIT [id number] IMPRESSION: 1. Radiotracer avid areas involving the peritoneum in the abdomen or pelvis are compatible with peritoneal carcinomatosis. An infectious peritonitis is less likely. 2. Low-level uptake within mediastinal and right hilar lymph nodes is noted, which can be inflammatory, infectious or malignant in etiology. 3. [id number] left pleural effusion. 4. Similar right-sided hydronephrosis and prominence of the right renal pelvis with nonobstructing calculi layering in the right renal pelvis. 5. Additional nonurgent findings as detailed above.
== END 2025-04-10 23:59 | disposition home or self-care (01) ==
LOC: ONCMED 03-30 09:58
PROVIDERS: PCP Family Medicine; Visit Provider Internal Medicine Medical Oncology
DX: Z53.9 Procedure and treatment not carried out, unspecified reason; C78.6 Secondary malignant neoplasm of retroperitoneum and peritoneum; R93.89 Abnormal findings on diagnostic imaging of other specified body structures; R59.0 Localized enlarged lymph nodes; J90 Pleural effusion, not elsewhere classified; N13.30 Unspecified hydronephrosis; N20.0 Calculus of kidney; J34.89 Other specified disorders of nose and nasal sinuses; Z90.49 Acquired absence of other specified parts of digestive tract; R93.3 Abnormal findings on diagnostic imaging of other parts of digestive tract; R18.8 Other ascites; M79.89 Other specified soft tissue disorders; I70.90 Unspecified atherosclerosis; Z96.89 Presence of other specified functional implants; M47.9 Spondylosis, unspecified
CPT/HCPCS: 36415; 78815; 80053; 82378; 85025; 85610; 86304; 99205; A9552

== ENCOUNTER 2025-04-13 13:40 | Oncology outpatient (recurring) (ONCR) | payer MEDICARE, SELFPAY | END 2025-05-10 23:59 | disposition home or self-care (01) | PROVIDERS: PCP Family Medicine; Visit Provider Internal Medicine Medical Oncology | DX: K66.8 Other specified disorders of peritoneum (principal); R03.0 Elevated blood-pressure reading, without diagnosis of hypertension; G89.3 Neoplasm related pain (acute) (chronic); J90 Pleural effusion, not elsewhere classified; Z79.01 Long term (current) use of anticoagulants; Z79.899 Other long term (current) drug therapy | CPT/HCPCS: 99214 ==

== ENCOUNTER 2025-04-29 13:02 | Emergency (ER) | payer MEDICARE, SELFPAY ==
[2025-04-29] VITALS (8 sets, daily range): BP systolic 109–133; BP diastolic 66–76; PULSE 72–82; RESP 18–24; TEMP 36.8; O2SAT 97–99; BMI 48.1
--- NOTE | 2025-04-29 13:07 | XR_ITS ---
WS: [id number] XR chest 1V portable [id number] REASON FOR EXAM: Shortness of breath FINDINGS: Since the previous examination of 03/26/2025 there is been the addition of a left chest port with right IJ infusion catheter. Catheter and port are not contiguous. Possibly disconnected. Compared to the previous examination the left lower lobe atelectasis and left pleural effusion persist possibly with some improvement. No new chest abnormality. XR/XR chest 1V portable [id number] IMPRESSION: Stable to improved abnormal chest as above. Potential right port and catheter problem as above.
--- NOTE | 2025-04-29 13:11 | ED_ITS ---
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 Says this came on fairly suddenly earlier today. She is tachypneic on presentation. Lungs are clear. She is not requiring oxygen. She complains of diffuse abdominal pain. Related Data Home Medications ?Medication ?Instructions ?Recorded ?Confirmed magnesium 200 mg tablet 400 mg PO DAILY 04/14/2109/02 calcium carbonate (Calcium 600) 600 mg PO DAILY 04/13/25 [id number] ac 400 1 tab PO DAILY 03/11/2509/02 mcg-calcium carb 500 mg-vit K1 20 mcg tablet turmeric 400 mg capsule 400 mg PO DAILY 03/11/2509/02 Previous Rx's ?Medication ?Instructions ?Recorded warfarin 10 mg tablet 10 mg PO .COMPLEX as directe d #30 07/22/24 tabs warfarin 5 mg tablet See Rx Instructions .Route 0 12/30/24 .COMPLEX #30 tabs escitalopram oxalate 10 mg tablet 10 mg PO DAILY #30 t abs 02/24/25 (Lexapro) ondansetron 4 mg disintegrating 4 mg PO Q6H PRN nausea and 03/12/25 tablet vomiting #30 tabs enoxaparin 40 mg/0.4 mL 40 mg (0.4 mL) SUBCUT DAILY #4 mL 03/16/25 subcutaneous syringe (Lovenox) apixaban 5 mg tablet (Eliquis) 5 mg PO BID #60 tabs furosemide 40 mg tablet (Lasix) 40 mg PO DAILY #10 tab s 03/26/25 hydrocodone 5 mg-acetaminophen 325 1 tab PO Q6H PRN pa in 30 days #60 04/27/25 mg tablet tabs oxycodone-acetaminophen 7.5 mg-325 1 tab PO Q8H PRN pa in #14 tabs 04/29/25 mg tablet (Percocet) Allergies Allergy/AdvReac Type Severity Reaction Status Date / Time adhesive tape Allergy rash Verified 04/13/25 13:56 codeine Allergy Seizures Verified 04/13/25 13:56 Penicillins Allergy Rash Verified 04/13/25 13:56 Review of Systems 2 Narrative: Constitutional symptoms: Negative except as documented in HPI. Skin symptoms: Negative except as documented in HPI. Eye symptoms: Negative except as documented in HPI. ENMT symptoms: Negative except as documented in HPI. Respiratory symptoms: Negative except as documented in HPI. Cardiovascular symptoms: Negative except as documented in HPI. Gastrointestinal symptoms: Negative except as documented in HPI. Genitourinary symptoms: Negative except as documented in HPI. Musculoskeletal symptoms: Negative except as documented in HPI. Neurologic symptoms: Negative except as documented in HPI. Psychiatric symptoms: Negative except as documented in HPI. Endocrine symptoms: Negative except as documented in HPI. PFSH ED 2 PFSH: Medical History (Updated 04/29/25 @ 14:57 by Sunshine Rodriguez MD) custodial (current) use of anticoagulants Fatty liver Fatigue Hyperlipidemia Elevated C-reactive protein (CRP) Factor 5 Leiden mutation, heterozygous Trigeminal neuralgia of right side of face Surgical History History of brain surgery Trigeminal neuralgia repair of right side of face--non aggressive procedure History of appendectomy History of cholecystectomy Hx of breast surgery removal of a cyst-right side Hx of removal of cyst right calf Status post revision of total replacement of left knee Family History Mother Bleeding disorder factor 5 CAD (coronary artery disease) Cancer unsure but thinks it was UTERINE CANCER Stroke mini strokes Father Cancer Lung Hypertension Denies family history of Diabetes Clotting disorder Hyperlipidemia Chronic kidney disease (CKD) Thyroid disease Social History Smoking and tobacco/nicotine status: never used tobacco/nicotine Quit status (tobacco/nicotine): has quit using Year quit tobacco: 1970 Second hand smoke exposure: Yes Alcohol intake: current Alcohol intake frequency: holidays/special occasions only Substance/Drug Use: never Physical Exam 2 Narrative: EXAM NARRATIVE: General: Alert, no acute distress. Skin: Warm, dry. Head: Normocephalic, atraumatic. Neck: Supple, trachea midline. Eye: Extraocular movements are intact. Ears, nose, mouth and throat: mucosa moist. Cardiovascular: Regular, Normal peripheral perfusion. Respiratory: Lungs are clear to auscultation, respirations are non-labored, breath sounds are equal, Symmetrical chest wall expansion. Gastrointestinal: Soft, Nontender, Non distended Musculoskeletal: Normal ROM, no deformity. Neurological: Alert and oriented, No focal neurological deficit observed. Psychiatric: Cooperative, appropriate mood & affect. Course 2 Vital Signs: Vital signs: Vital Signs Temperature 98.2 F 04/29/25 13:05 Pulse Rate 82 04/29/25 15:45 Respiratory Rate 18 04/29/25 17:25 Blood Pressure 125/66 04/29/25 15:45 Pulse Oximetry 98 04/29/25 16:11 Oxygen Delivery Me thod Room Air 04/29/25 15:45 MDM - SOB/Dyspnea Medical Decision Making Medical decision making Patient's reason for coming to the emergency room: Shortness of breath, abdominal pain Social determinants: Patient is retired I reviewed the patient's medical record. Patient follows with Dr. Rodriguez in clinic. Most recently seen on April 13. She has peritoneal carcinomatosis. Discussing treatment options for metastatic ovarian cancer with primary peritoneal carcinomatosis I reviewed the patient's current home meds Patient takes Eliquis. Reviewed patient's prescription monitoring and she does receive 60 hydrocodone per month. Alternate historians: None Differential diagnosis: including but not limited to and based on the above HPI, review of systems and physical exam: In this patient with shortness of breath and abdominal pain and swelling she has had a history where she needed to have paracentesis to relieve pressure from fluid on her belly that was malignant. Rule out pneumonia etc. as well with the chest x-ray. Orders placed to evaluate differential diagnosis based on the above differential, HPI and physical exam Lab Review: Laboratory results were reviewed and interpreted by myself the emergency room physician. No leukocytosis. No anemia. No renal failure. Flu COVID and RSV are negative. Chest x-ray: No acute process. No infiltrate. No pneumothorax. This was reviewed and interpreted by myself the emergency room physician. I also reviewed the radiology report. There is concern that the port may not be connected to the line. EKG: Time 1341. Rate 75 normal sinus rhythm, No ST-T changes, no ectopy, normal CO & QRS intervals, This was reviewed and interpreted by myself the ER physician at 1345 Consultation: I spoke with Dr. Castellano with radiology. She will do an ultrasound-guided paracentesis. Assessment and plan: Large volume ascites Peritoneal carcinomatosis ?IV morphine in the emergency room. - Discharged home - Discussed plan with patient. Answered any questions. - Evaluation and treatment of this problem were appropriate in the emergency setting. Lab Data 04/29/25 13:20 04/29/25 13:20 Labs/Radiology: Radiology Impressions Chest X-Ray 04/29/25 13:07 IMPRESSION: Stable to improved abnormal chest as above. Potential right port and catheter problem as above. Abdomen/Pelvis CT 04/29/25 14:10 IMPRESSION: 1. Large volume ascites with evidence omental metastatic disease/carcinomatosis. 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 This appears to represent mild progression from prior. 2. Moderate left pleural effusion. COMMENTS: For patients with an IVC filter, recommend assessment for a management plan for the patient's IVC filter. If there is no established management plan, recommend referral to an interventional clinician on a nonemergent basis for evaluation. Laboratory Results WBC 7.48 10^3/uL (3.29-11.43) 04/29/25 13:20 RBC 4.03 10^6/uL (3.85-5.65) 04/29/25 13:20 Hgb 10.40 g/dL (11.27-16.99) L 04/29/25 13:20 Hct 35.2 % (36-47) L 04/29/25 13:20 MCV 87.3 fl (85-98) 04/29/25 13:20 MCH 25.8 pg (27-33) L 04/29/25 13:20 MCHC 29.5 g/dL (30-55) L 04/29/25 13:20 RDW 18.4 % (12.1-15.1) H 04/29/25 13:20 Plt Count 261 10^3/cmm (157-399) 04/29/25 13:20 MPV 10.3 fL (7.4-10.4) 04/29/25 13:20 Neut % (Auto) 84.8 % 04/29/25 13:20 Lymph % (Auto) 4.0 % 04/29/25 13:20 [place] % (Auto) 8.7 % 04/29/25 13:20 Eos % (Auto) 1.5 % 04/29/25 13:20 Baso % (Auto) 0.5 % 04/29/25 13:20 Neut # (Auto) 6.34 10^3/uL (1.8-7.7) 04/29/25 13:20 Lymph # (Auto) 0.3 10^3/uL (0.8-4.8) L 04/29/25 13:20 [place] # (Auto) 0.7 10^3/uL (0.2-0.9) 04/29/25 13:20 Eos # (Auto) 0.1 10^3/uL (0.0-0.8) 04/29/25 13:20 Baso # (Auto) 0.0 10^3/uL (0.0-0.1) 04/29/25 13:20 Nucleated RBC % (auto) 0 % 04/29/25 13:20 Nucleated RBCs # 0.0 /100WBC 04/29/25 13:20 Sodium 138 mmol/L (136-145) 04/29/25 13:20 Potassium 4.0 mmol/L (3.5-5.1) 04/29/25 13:20 Chloride 104 mmol/L (98-107) 04/29/25 13:20 Carbon Dioxide 18 mmol/L (22-29) L 04/29/25 13:20 Anion Gap 20.0 (5-19) H 04/29/25 13:20 BUN 11 mg/dL (8-23) 04/29/25 13:20 Creatinine 0.8 mg/dL (0.5-0.9) 04/29/25 13:20 GFR Calculation Not Reportable 04/29/25 13:20 Glucose 98 mg/dL (65-115) 04/29/25 13:20 Calculated Osmolality 285 mOsm/kg (285-295) 04/29/25 13:20 Lactic Acid 2.7 mmol/L (0.5-2.2) H 04/29/25 13:20 Calcium 8.6 mg/dL (8.5-10.5) 04/29/25 13:20 Total Bilirubin 0.6 mg/dL (0.15-1.2) 04/29/25 13:20 AST 15 U/L (0-32) 04/29/25 13:20 ALT 6 U/L (0-33) 04/29/25 13:20 Alkaline Phosphatase 80 U/L (35-105) 04/29/25 13:20 Troponin T Baseline 22 ng/L (0-10) H 04/29/25 13:20 NT-Pro-B Natriuret Pep 616 pg/mL (0-450) H 04/29/25 13:20 Total Protein 6.3 g/dL (6.6-8.7) L 04/29/25 13:20 Albumin 3.2 g/dL (3.5-5.2) L 04/29/25 13:20 Globulin 3.1 g/dL (1.3-4.6) 04/29/25 13:20 Procalcitonin 0.33 ng/mL (0-0.5) 04/29/25 13:20 Influenza A (PCR) Negative (Negative) 04/29/25 13:43 Influenza Type B (PCR) Negative (Negative) 04/29/25 13:43 RSV (PCR) Negative (Negative) 04/29/25 13:43 SARS-CoV-2 (PCR) Negative (Negative) 04/29/25 13:43 All radiology interpretation(s) finalized by discharge Discharge Plan Discharge Patient Disposition: Home Clinical Impression: Ascites, Shortness of breath, Peritoneal carcinomatosis Condition: Stable Prescriptions: New oxycodone-acetaminophen [Percocet] 7.5-325 mg tablet 1 tab PO Q8H PRN (Reason: pain) Qty: 14 0RF No Action magnesium 200 mg tablet 400 mg PO DAILY escitalopram oxalate [Lexapro] 10 mg tablet 10 mg PO DAILY Qty: 30 11RF ondansetron 4 mg tablet,disintegrating 4 mg PO Q6H PRN (Reason: nausea and vomiting) Qty: 30 3RF Eliquis 5 mg tablet 5 mg PO BID Qty: 60 3RF warfarin 10 mg tablet 10 mg PO .COMPLEX Qty: 30 11RF Rx Instructions: 10 mg PO given on Tuesdays, , Saturdays and Sundays; warfarin 5 mg tablet See Rx Instructions .ROUTE .COMPLEX Qty: 30 11RF Dose Instruction: TAKE 1 TABLET BY MOUTH ON MONDAYS, WEDNESDAYS, AND FRIDAYS Rx Instructions: TAKE 1 TABLET BY MOUTH ON MONDAYS, WEDNESDAYS, AND FRIDAYS enoxaparin [Lovenox] 40 mg/0.4 mL syringe 40 mg SUBCUT DAILY Qty: 4 0RF hydrocodone-acetaminophen 5-325 mg tablet 1 tab PO Q6H PRN (Reason: pain) 30 Days Qty: 60 0RF calcium carbonate [Calcium 600] 600 mg calcium (1,500 mg) Tablet 600 mg PO DAILY One-A-Day Women's 50 Plus 400 mcg-500 mg calcium-20 mcg Tablet 1 tab PO DAILY turmeric 400 mg Capsule 400 mg PO DAILY furosemide [Lasix] 40 mg tablet 40 mg PO DAILY Qty: 10 0RF Discharge Orders: Discharge ED (Routine); Ordered 04/29/25 Ordered By: Osman Bourgeois Referrals: Niko Lomax MD [Primary Care Provider, Family Practice] Discharge Diet: Usual diet Discharge Activity: Increase activity as tolerated Patient Instructions: Abdominal Pain (ED), Opioid Safety, Pain Management Activity Restrictions/Additional Instructions: There was some concern for an abnormality involving your right sided catheter. Please have your surgeon look at this and make sure that it looks similar to when it was put in. Thank you for choosing [facility] for your healthcare needs today. You have been screened and evaluated and felt safe for discharge. Health conditions do change or evolve sometimes and as such it is important that you follow up with your Primary Doctor to be re checked, 3-5 days is a general good time frame for follow up. You are always welcome to return to the ED for re assessment if your symptoms are worsening or you have new concerns Print Language: Frisian Coding Level of Care Code ED Rooming House Keeper for Chg Fwd Documented by User: Osman Bourgeois MD 04/29/25 17:36 HPI - SOB/Dyspnea 2 General: Chief Complaint: Shortness of Breath/Dyspnea Stated Complaint: SOB Time Seen by Provider: 04/29/25 13:03 Related Data Home Medications ?Medication ?Instructions ?Recorded ?Confirmed magnesium 200 mg tablet 400 mg PO DAILY 04/14/2109/02 calcium carbonate (Calcium 600) 600 mg PO DAILY 04/13/25 zlypcezc-eoq-nmzax ac 400 1 tab PO DAILY 03/11/2509/02 mcg-calcium carb 500 mg-vit K1 20 mcg tablet turmeric 400 mg capsule 400 mg PO DAILY 03/11/2509/02 Previous Rx's ?Medication ?Instructions ?Recorded warfarin 10 mg tablet 10 mg PO .COMPLEX as directe d #30 07/22/24 tabs warfarin 5 mg tablet See Rx Instructions .Route 0 12/30/24 .COMPLEX #30 tabs escitalopram oxalate 10 mg tablet 10 mg PO DAILY #30 t abs 02/24/25 (Lexapro) ondansetron 4 mg disintegrating 4 mg PO Q6H PRN nausea and 03/12/25 tablet vomiting #30 tabs enoxaparin 40 mg/0.4 mL 40 mg (0.4 mL) SUBCUT DAILY #4 mL 03/16/25 subcutaneous syringe (Lovenox) apixaban 5 mg tablet (Eliquis) 5 mg PO BID #60 tabs furosemide 40 mg tablet (Lasix) 40 mg PO DAILY #10 tab s 03/26/25 hydrocodone 5 mg-acetaminophen 325 1 tab PO Q6H PRN pa in 30 days #60 04/27/25 mg tablet tabs oxycodone-acetaminophen 7.5 mg-325 1 tab PO Q8H PRN pa in #14 tabs 04/29/25 mg tablet (Percocet) Allergies Allergy/AdvReac Type Severity Reaction Status Date / Time adhesive tape Allergy rash Verified 04/13/25 13:56 codeine Allergy Seizures Verified 04/13/25 13:56 Penicillins Allergy Rash Verified 04/13/25 13:56 PFS ED 2 PFSH: Medical History (Updated 04/29/25 @ 14:57 by Sunshine Rodriguez MD) custodial (current) use of anticoagulants Fatty liver Fatigue Hyperlipidemia Elevated C-reactive protein (CRP) Factor 5 Leiden mutation, heterozygous Trigeminal neuralgia of right side of face Surgical History History of brain surgery Trigeminal neuralgia repair of right side of face--non aggressive procedure History of appendectomy History of cholecystectomy Hx of breast surgery removal of a cyst-right side Hx of removal of cyst right calf Status post revision of total replacement of left knee Family History Mother Bleeding disorder factor 5 CAD (coronary artery disease) Cancer unsure but thinks it was UTERINE CANCER Stroke mini strokes Father Cancer Lung Hypertension Denies family history of Diabetes Clotting disorder Hyperlipidemia Chronic kidney disease (CKD) Thyroid disease Social History Smoking and tobacco/nicotine status: never used tobacco/nicotine Quit status (tobacco/nicotine): has quit using Year quit tobacco: 1970 Second hand smoke exposure: Yes Alcohol intake: current Alcohol intake frequency: holidays/special occasions only Substance/Drug Use: never Course 2 Vital Signs: Vital signs: Vital Signs Temperature 98.2 F 04/29/25 13:05 Pulse Rate 82 04/29/25 15:45 Respiratory Rate 18 04/29/25 17:25 Blood Pressure 125/66 04/29/25 15:45 Pulse Oximetry 98 04/29/25 16:11 Oxygen Delivery Me thod Room Air 04/29/25 15:45 MDM - SOB/Dyspnea Medical Decision Making Medical decision making Patient's reason for coming to the emergency room: Shortness of breath, abdominal pain Social determinants: Patient is retired I reviewed the patient's medical record. Patient follows with Dr. Rodriguez in clinic. Most recently seen on April 13. She has peritoneal carcinomatosis. Discussing treatment options for metastatic ovarian cancer with primary peritoneal carcinomatosis I reviewed the patient's current home meds Patient takes Eliquis. Reviewed patient's prescription monitoring and she does receive 60 hydrocodone per month. Alternate historians: None Differential diagnosis: including but not limited to and based on the above HPI, review of systems and physical exam: In this patient with shortness of breath and abdominal pain and swelling she has had a history where she needed to have paracentesis to relieve pressure from fluid on her belly that was malignant. Rule out pneumonia etc. as well with the chest x-ray. Orders placed to evaluate differential diagnosis based on the above differential, HPI and physical exam Lab Review: Laboratory results were reviewed and interpreted by myself the emergency room physician. No leukocytosis. No anemia. No renal failure. Flu COVID and RSV are negative. Chest x-ray: No acute process. No infiltrate. No pneumothorax. This was reviewed and interpreted by myself the emergency room physician. I also reviewed the radiology report. There is concern that the port may not be connected to the line. EKG: Time 1341. Rate 75 normal sinus rhythm, No ST-T changes, no ectopy, normal CO & QRS intervals, This was reviewed and interpreted by myself the ER physician at 1345 Consultation: I spoke with Dr. Castellano with radiology. She will do an ultrasound-guided paracentesis. Assessment and plan: Large volume ascites Peritoneal carcinomatosis ?IV morphine in the emergency room. - Discharged home - Discussed plan with patient. Answered any questions. - Evaluation and treatment of this problem were appropriate in the emergency setting. Took patient over from above physician had extensive conversation with patient and her son. She had some continued pain here and they are concerned about pain control at home. She felt much improved after IV morphine they were not able to complete the paracentesis here. Will prescribe her Percocets for home and they will follow-up with her oncology on Sunday informed they need to return if she has any worsening symptoms including increased pain or fever or follow-up with [facility] they understand agree to plan. Lab Data 04/29/25 13:20 04/29/25 13:20 Labs/Radiology: Radiology Impressions Chest X-Ray 04/29/25 13:07 IMPRESSION: Stable to improved abnormal chest as above. Potential right port and catheter problem as above. Abdomen/Pelvis CT 04/29/25 14:10 IMPRESSION: 1. Large volume ascites with evidence omental metastatic disease/carcinomatosis. 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 This appears to represent mild progression from prior. 2. Moderate left pleural effusion. COMMENTS: For patients with an IVC filter, recommend assessment for a management plan for the patient's IVC filter. If there is no established management plan, recommend referral to an interventional clinician on a nonemergent basis for evaluation. Laboratory Results WBC 7.48 10^3/uL (3.29-11.43) 04/29/25 13:20 RBC 4.03 10^6/uL (3.85-5.65) 04/29/25 13:20 Hgb 10.40 g/dL (11.27-16.99) L 04/29/25 13:20 Hct 35.2 % (36-47) L 04/29/25 13:20 MCV 87.3 fl (85-98) 04/29/25 13:20 MCH 25.8 pg (27-33) L 04/29/25 13:20 MCHC 29.5 g/dL (30-55) L 04/29/25 13:20 RDW 18.4 % (12.1-15.1) H 04/29/25 13:20 Plt Count 261 10^3/cmm (157-399) 04/29/25 13:20 MPV 10.3 fL (7.4-10.4) 04/29/25 13:20 Neut % (Auto) 84.8 % 04/29/25 13:20 Lymph % (Auto) 4.0 % 04/29/25 13:20 [place] % (Auto) 8.7 % 04/29/25 13:20 Eos % (Auto) 1.5 % 04/29/25 13:20 Baso % (Auto) 0.5 % 04/29/25 13:20 Neut # (Auto) 6.34 10^3/uL (1.8-7.7) 04/29/25 13:20 Lymph # (Auto) 0.3 10^3/uL (0.8-4.8) L 04/29/25 13:20 [place] # (Auto) 0.7 10^3/uL (0.2-0.9) 04/29/25 13:20 Eos # (Auto) 0.1 10^3/uL (0.0-0.8) 04/29/25 13:20 Baso # (Auto) 0.0 10^3/uL (0.0-0.1) 04/29/25 13:20 Nucleated RBC % (auto) 0 % 04/29/25 13:20 Nucleated RBCs # 0.0 /100WBC 04/29/25 13:20 Sodium 138 mmol/L (136-145) 04/29/25 13:20 Potassium 4.0 mmol/L (3.5-5.1) 04/29/25 13:20 Chloride 104 mmol/L (98-107) 04/29/25 13:20 Carbon Dioxide 18 mmol/L (22-29) L 04/29/25 13:20 Anion Gap 20.0 (5-19) H 04/29/25 13:20 BUN 11 mg/dL (8-23) 04/29/25 13:20 Creatinine 0.8 mg/dL (0.5-0.9) 04/29/25 13:20 GFR Calculation Not Reportable 04/29/25 13:20 Glucose 98 mg/dL (65-115) 04/29/25 13:20 Calculated Osmolality 285 mOsm/kg (285-295) 04/29/25 13:20 Lactic Acid 2.7 mmol/L (0.5-2.2) H 04/29/25 13:20 Calcium 8.6 mg/dL (8.5-10.5) 04/29/25 13:20 Total Bilirubin 0.6 mg/dL (0.15-1.2) 04/29/25 13:20 AST 15 U/L (0-32) 04/29/25 13:20 ALT 6 U/L (0-33) 04/29/25 13:20 Alkaline Phosphatase 80 U/L (35-105) 04/29/25 13:20 Troponin T Baseline 22 ng/L (0-10) H 04/29/25 13:20 NT-Pro-B Natriuret Pep 616 pg/mL (0-450) H 04/29/25 13:20 Total Protein 6.3 g/dL (6.6-8.7) L 04/29/25 13:20 Albumin 3.2 g/dL (3.5-5.2) L 04/29/25 13:20 Globulin 3.1 g/dL (1.3-4.6) 04/29/25 13:20 Procalcitonin 0.33 ng/mL (0-0.5) 04/29/25 13:20 Influenza A (PCR) Negative (Negative) 04/29/25 13:43 Influenza Type B (PCR) Negative (Negative) 04/29/25 13:43 RSV (PCR) Negative (Negative) 04/29/25 13:43 SARS-CoV-2 (PCR) Negative (Negative) 04/29/25 13:43 Discharge Plan Discharge Patient Disposition: Home Clinical Impression: Ascites, Shortness of breath, Peritoneal carcinomatosis Condition: Stable Prescriptions: New oxycodone-acetaminophen [Percocet] 7.5-325 mg tablet 1 tab PO Q8H PRN (Reason: pain) Qty: 14 0RF No Action magnesium 200 mg tablet 400 mg PO DAILY escitalopram oxalate [Lexapro] 10 mg tablet 10 mg PO DAILY Qty: 30 11RF ondansetron 4 mg tablet,disintegrating 4 mg PO Q6H PRN (Reason: nausea and vomiting) Qty: 30 3RF Eliquis 5 mg tablet 5 mg PO BID Qty: 60 3RF warfarin 10 mg tablet 10 mg PO .COMPLEX Qty: 30 11RF Rx Instructions: 10 mg PO given on Tuesdays, , Saturdays and Sundays; warfarin 5 mg tablet See Rx Instructions .ROUTE .COMPLEX Qty: 30 11RF Dose Instruction: TAKE 1 TABLET BY MOUTH ON MONDAYS, WEDNESDAYS, AND FRIDAYS Rx Instructions: TAKE 1 TABLET BY MOUTH ON MONDAYS, WEDNESDAYS, AND FRIDAYS enoxaparin [Lovenox] 40 mg/0.4 mL syringe 40 mg SUBCUT DAILY Qty: 4 0RF hydrocodone-acetaminophen 5-325 mg tablet 1 tab PO Q6H PRN (Reason: pain) 30 Days Qty: 60 0RF calcium carbonate [Calcium 600] 600 mg calcium (1,500 mg) Tablet 600 mg PO DAILY One-A-Day Women's 50 Plus 400 mcg-500 mg calcium-20 mcg Tablet 1 tab PO DAILY turmeric 400 mg Capsule 400 mg PO DAILY furosemide [Lasix] 40 mg tablet 40 mg PO DAILY Qty: 10 0RF Discharge Orders: Discharge ED (Routine); Ordered 04/29/25 Ordered By: Osman Bourgeois Referrals: Niko Lomax MD [Primary Care Provider, Family Practice] Discharge Diet: Usual diet Discharge Activity: Increase activity as tolerated Patient Instructions: Abdominal Pain (ED), Opioid Safety, Pain Management Activity Restrictions/Additional Instructions: There was some concern for an abnormality involving your right sided catheter. Please have your surgeon look at this and make sure that it looks similar to when it was put in. Thank you for choosing [facility] for your healthcare needs today. You have been screened and evaluated and felt safe for discharge. Health conditions do change or evolve sometimes and as such it is important that you follow up with your Primary Doctor to be re checked, 3-5 days is a general good time frame for follow up. You are always welcome to return to the ED for re assessment if your symptoms are worsening or you have new concerns Print Language: Frisian Coding Level of Care Code ED Rooming House Keeper for Lakesha Kendrick
[2025-04-29] MEDS: ondansetron 2 mg/ML SDV 2 mL 4 MG IVP (13:41)
[2025-04-29] MEDS: morphine 4 mg/mL SDV 1 mL IVP ×2 (13:41→16:11)
--- NOTE | 2025-04-29 13:41 | ECG_ITS ---
[facility] Date: 2025-04-29 Pat Name: Radha Vega Department: Room: Gender: Female [employer] Planner: : 1950 Requested By: Sunshine Hardy Order Number: [id number] Benigno MD: Nan Marsh M.D. Measurements Intervals [place] Rate: 75 P: -1 NC: 132 QRS: 40 QRSD: 82 T: 52 QT: 412 QTc: 462 Interpretive Statements SINUS RHYTHM Compared to ECG 03/26/2025 18:27:01 T-wave abnormality no longer present Electronically Signed On 04-29-2025 23:54:05 [employer] by Nan Marsh M.D. [email or web address]
[2025-04-29 13:47] LABS: Hematocrit 35.2 % (36-47); Hemoglobin 10.40 g/dL (11.27-16.99); Mean Corpuscular HGB Conc 29.5 g/dL (30-55); Mean Corpuscular Hemoglobin 25.8 pg (27-33); Mean Corpuscular Volume 87.3 fl (85-98); Nucleated Red Blood Cells % 0 %; Platelet Count 261 10^3/cmm (157-399); Red Blood Count 4.03 10^6/uL (3.85-5.65); White Blood Count 7.48 10^3/uL (3.29-11.43)
[2025-04-29 14:08] LABS: Troponin(5th) Baseline 22 ng/L (0-10)
--- NOTE | 2025-04-29 14:10 | CTR_ITS ---
PROCEDURE INFORMATION: Exam: CT Abdomen And Pelvis Without Contrast Exam date and time: 04/29/2025 2:14 PM Age: 75 years old Clinical indication: Abdominal pain. History of peritoneal carcinomatosis. TECHNIQUE: Imaging protocol: Computed tomography of the abdomen and pelvis without contrast. Radiation optimization: All CT scans at this facility use at least one of these dose optimization techniques: automated exposure control; mA and/or kV adjustment per patient size (includes targeted exams where dose is matched to clinical indication); or iterative reconstruction. COMPARISON: PT PET skull to thigh INIT [id number] 03/27/2025 4:10 PM RADIATION DOSE METRICS: Total DLP (mGy-cm): 1135.4 FINDINGS: Pleural spaces: Moderate left pleural effusion. 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 This could be better assessed with contrast-enhanced exam if clinically indicated. Gallbladder and biliary ducts: Prior cholecystectomy. No suspicious biliary dilatation. Pancreas: Normal. No pancreatic ductal dilation. Spleen: Normal. No splenomegaly. Adrenal glands: Normal. No adrenal mass. Kidneys and ureters: Numerous right-sided renal stones, no right hydroureter or ureteral stones. Stone burden similar to prior. Stomach and bowel: No bowel obstruction. No inflammatory changes of the bowel. Intraperitoneal space: Large volume ascites. 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 Measurable disease is contiguous with the greater curvature of the stomach, currently measuring approximately 5.7 cm on image 29 series 4, previously approximately 4.8 cm. Vasculature: An inferior vena cava filter lies in appropriate position. The tines of the filter are noted do extend beyond the wall of the IVC. Lymph nodes: Unremarkable. No enlarged lymph nodes. Urinary bladder: Unremarkable bladder as visualized. Reproductive: Unremarkable as visualized. Bones/joints: No new or aggressive appearing osseous lesion. Soft tissues: See Intraperitoneal space finding. Other findings: The lack of IV contrast limits the evaluation of the solid organs. CT/CT abdomen pelvis wo con [id number] IMPRESSION: 1. Large volume ascites with evidence omental metastatic disease/carcinomatosis. 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 This appears to represent mild progression from prior. 2. Moderate left pleural effusion. COMMENTS: For patients with an IVC filter, recommend assessment for a management plan for the patient's IVC filter. If there is no established management plan, recommend referral to an interventional clinician on a nonemergent basis for evaluation.
[2025-04-29 14:15] LABS: Lactic Sepsis W/Reflex 2.7 mmol/L (0.5-2.2)
[2025-04-29 14:17] LABS: NT Pro B Type Natriuretic Pept 616 pg/mL (0-450); Procalcitonin 0.33 ng/mL (0-0.5)
[2025-04-29 14:23] LABS: Respiratory Syncytial Virus Ce NEGATIVE (Negative); SARS-CoV-2 PCR NEGATIVE (Negative)
[2025-04-29 14:28] LABS: Albumin Level 3.2 g/dL (3.5-5.2); Alkaline Phosphatase 80 U/L (35-105); Blood Urea Nitrogen 11 mg/dL (8-23); Calcium 8.6 mg/dL (8.5-10.5); Carbon Dioxide 18 mmol/L (22-29); Chloride 104 mmol/L (98-107); Globulin 3.1 g/dL (1.3-4.6); Glucose 98 mg/dL (65-115); Osmolality Calculated 285 mOsm/kg (285-295); Sodium 138 mmol/L (136-145); Total Protein 6.3 g/dL (6.6-8.7)
[2025-04-29 14:46] LABS: Alanine Aminotransferase 6 U/L (0-33); Aspartate Amino Transferase 15 U/L (0-32)
[2025-04-29 14:48] LABS: Anion Gap 20.0 (5-19); Potassium 4.0 mmol/L (3.5-5.1)
--- NOTE | 2025-04-29 14:54 | US_ITS ---
WS: [id number] Abdominal ultrasound, limited. History: Evaluate for ascites. Comparison: 04/29/2025 All 4 quadrants are imaged by ultrasound to evaluate for ascites. There is a moderate amount of ascites identified within the peritoneal cavity. There are few small windows in which to access the ascites. Bowel loops and carcinomatosis along several of the pathways to access the fluid. Upon the initial incision site within the skin patient has significant amount of bleeding. Patient is on Eliquis. I did explain the risk of bleeding to the patient and she has elected to not proceed with the procedure until Eliquis can be held for 2 days. US/US abdomen lmt fluid [id number] IMPRESSION: No paracentesis performed today due to the patient's medications.
[2025-04-29 15:29] LABS: Reflex Lactate Order REFLEX LACTIC ORDERD
--- OUTSIDE RECORDS SUMMARY | 2025-04-29 15:36 | XMS_ITS | Clinical Summary ---
Author Organization [facility] Address [address] [place] [address] Care Team Providers Care Chicken Hanger Name Role Phone Danni Jesus MD Primary [...] on file Legal Sex Female 1:08 PM LEAD IOS DEVELOPER Gender Identity Not on file Sexual Orientation Not on file Last Filed Vital Signs Vital Sign Reading Time Taken Comments Blood Pressure 137/63 07/12/2014 7:43 PM LEAD IOS DEVELOPER Pulse 81 07/12/2014 7:43 PM LEAD IOS DEVELOPER Temperature 36.8 C (98.2 F) 07/12/2014 5:00 PM LEAD IOS DEVELOPER Respiratory Rate 19 07/12/2014 7:43 PM LEAD IOS DEVELOPER Oxygen Saturation 96% 07/12/2014 7:43 PM LEAD IOS DEVELOPER Inhaled Oxygen Concentration - - Weight 119.7 kg (264 lb) 07/12/2014 5:00 PM LEAD IOS DEVELOPER Height 157.5 cm (5' 2 ) 07/12/2014 5:00 PM LEAD IOS DEVELOPER Body Mass Index 48.29 07/12/2014 5:00 PM LEAD IOS DEVELOPER Plan of Treatment Health Maintenance Due Date Last Done Comments DTAP/TDAP/TD VACCINES (1 - Tdap) 01/06/1968 PNEUMOCOCCAL VACCINE 50+ YEARS (1 of 1 - PCV) 01/05/19 99 ZOSTER VACCINE (1 of 2) 1999 OSTEOPOROSIS SCREENING 2014 RSV VACCINE (60+ or ) (1 - 1-dose 75+ series) 01/06/2024 INFLUENZA VACCINE (#1) 2025 Insurance MEDICARE PART A AND B [employer] Care Teams Chicken Hanger Relationship Specialty Start Date End Date Danni Jesus MD [address] [place] [address] PCP - General Family Practice 07/12/14
--- OUTSIDE RECORDS SUMMARY | 2025-04-29 15:36 | XMS_ITS | Clinical Summary ---
Author Organization [facility] Address [address] [place]: Epic Prelude ADT REJI ZAMBRANO [address] Care Team Providers Care Geothermal Plant Manager Name Role Phone Danni Jesus MD Primary [...] on file Legal Sex Female 1:51 PM REFRACTORY BRICKLAYER Gender Identity Not on file Sexual Orientation Not on file Last Filed Vital Signs Vital Sign Reading Time Taken Comments Blood Pressure 137/63 07/12/2014 7:43 PM REFRACTORY BRICKLAYER Pulse 81 07/12/2014 7:43 PM REFRACTORY BRICKLAYER Temperature 36.8 C (98.2 F) 07/12/2014 5:00 PM REFRACTORY BRICKLAYER Respiratory Rate 19 07/12/2014 7:43 PM REFRACTORY BRICKLAYER Oxygen Saturation - - Inhaled Oxygen Concentration - - Weight 119.7 kg (264 lb) 07/12/2014 5:00 PM REFRACTORY BRICKLAYER Height 157.5 cm (5' 2 ) 07/12/2014 5:00 PM REFRACTORY BRICKLAYER Body Mass Index 48.29 07/12/2014 5:00 PM REFRACTORY BRICKLAYER Plan of Treatment Health Maintenance Due Date Last Done Comments DTAP/TDAP/TD VACCINES (1 - Tdap) 01/06/1968 PNEUMOCOCCAL VACCINE 50+ YEARS (1 of 1 - PCV) 01/05/19 99 ZOSTER VACCINE (1 of 2) 1999 OSTEOPOROSIS SCREENING 2014 RSV VACCINE (60+ or ) (1 - 1-dose 75+ series) 01/06/2024 INFLUENZA VACCINE (#1) 2025 Care Teams Geothermal Plant Manager Relationship Specialty Start Date End Date Danni Jesus MD [address] [place] [address] PCP - General Family Practice 07/12/14
--- NOTE | 2025-04-29 15:53 | PC.NURSE ---
Dr. Castellano to bedside to perform paracentesis. PT and Dr. Castellano both agree to delay para D/T Pt's blood thinner use.
--- NOTE | 2025-04-29 16:35 | ECG_ITS ---
[facility] Test Date: 2025-04-29 Pat Name: Radha Vega Department: Room: Gender: Female Business Account Leader: : 1950 Requested By: Sunshine Hardy Order Number: [id number] Benigno MD: Nan Marsh M.D. Measurements Intervals [place] Rate: 72 P: 18 MS: 163 QRS: 37 QRSD: 77 T: 39 QT: 397 QTc: 435 Interpretive Statements SINUS RHYTHM LOW QRS VOLTAGE IN PRECORDIAL LEADS [QRS DEFLECTION < 1.0 mV IN CHEST LEADS] Compared to ECG 04/29/2025 13:41:40 Low QRS voltage now present Electronically Signed On 04-29-2025 23:58:30 FILTERING MACHINE TENDER HELPER by Nan Marsh M.D. [email or web address]
[2025-04-29] MEDS: oxyCODONE-APAP 10-325 mg Tablet 2 TAB PO (17:25)
== END 2025-04-29 17:39 | disposition home or self-care (01) ==
PROVIDERS: Emergency Medicine; Emergency Provider Emergency Medicine; PCP Family Medicine
DX: R06.02 Shortness of breath (principal); R18.8 Other ascites; C78.6 Secondary malignant neoplasm of retroperitoneum and peritoneum; Z79.01 Long term (current) use of anticoagulants; Z11.52 Encounter for screening for COVID-19; Z87.891 Personal history of nicotine dependence; E78.5 Hyperlipidemia, unspecified; Z85.43 Personal history of malignant neoplasm of ovary; Z85.89 Personal history of malignant neoplasm of other organs and systems
CPT/HCPCS: 36415; 49083; 71045; 74176; 76705; 80053; 83605; 83880; 84145; 84484; 85025; 87040; 87637; 93005; 96374; 96375; 96376; 99285; J2270; J2405; J9999

== ENCOUNTER 2025-05-06 08:51 | Outpatient (CLI) | payer MEDICARE, SELFPAY ==
--- NOTE | 2025-05-06 09:00 | XRR_ITS ---
PROCEDURE INFORMATION: Exam: XR Chest Exam date and time: 05/06/2025 9:07 AM Age: 75 years old Clinical indication: Condition or disease; Lung condition and disease; Pleural effusion; Other: Not specified; HX ovarian cancer TECHNIQUE: Imaging protocol: Radiologic exam of the chest. Views: 2 views. COMPARISON: CR XR chest 1V portable [id number] 04/29/2025 1:24 PM FINDINGS: Lungs: Opacity at the left lung base due to pleural effusion plus atelectasis and/or consolidation. Mild interstitial prominence. Pleural spaces: See Lungs finding. Heart/Mediastinum: Unremarkable. No cardiomegaly. Bones/joints: Unremarkable. XR/XR chest 2V* [id number] IMPRESSION: Moderate opacity at the left lung base.
== END 2025-05-06 08:52 | disposition home or self-care (01) ==
PROVIDERS: PCP Family Medicine; Visit Provider Internal Medicine Medical Oncology
DX: J90 Pleural effusion, not elsewhere classified (principal); J98.11 Atelectasis; R91.8 Other nonspecific abnormal finding of lung field
CPT/HCPCS: 71046

== ENCOUNTER 2025-05-11 11:30 | Day surgery (SDC) | payer MEDICARE, SELFPAY ==
[2025-05-11 11:50] VITALS: BP 151/92; PULSE 87; RESP 16; TEMP 36.3; O2SAT 94
--- NOTE | 2025-05-11 11:51 | US_ITS ---
WS: [id number] ULTRASOUND-GUIDED THORACENTESIS, LEFT HISTORY: Pleural effusion Procedure, risks, and complications were explained to the patient. With the patient in an upright position, the skin over the LEFT posterior thorax was cleansed with ChloraPrep and anesthetized with 1% buffered lidocaine. A 5 Guyan[place] Yueh needle is inserted into the pleural fluid without complication. A pproximately 1000 cc of clear pleural fluid is removed without difficulty. Chest radiograph to follow. / thoracentesis [id number] IMPRESSION: 1. LEFT thoracentesis yielding 1000 cc of fluid. 2. Chest radiograph to follow to evaluate for pneumothorax.
--- NOTE | 2025-05-11 12:27 | XR_ITS ---
WS: [id number] PORTABLE CHEST HISTORY: post thoracentesis, LEFT COMPARISON: 05/06/2025 Status post left-sided thoracentesis. No pneumothorax. Residual blunting of the LEFT costophrenic angle and loss of the contour. Some of these changes are probably related to the patient's underlying disease. Small amount of fluid remains. RIGHT lung is clear. Cardiac size: Mildly enlarged cardiac silhouette. Mediastinum/Aorta: Mild atherosclerosis aorta. RIGHT subclavian Mediport. No osseous abnormality seen. XR/XR chest 1V portable [id number] IMPRESSION: 1. No pneumothorax status post LEFT thoracentesis. 2. Persistent obscuration of the LEFT lung base. Probably residual small amoun t of residual pleural fluid with atelectasis and patient's underlying neoplasti c disease.
== END 2025-05-11 13:10 | disposition home or self-care (01) ==
LOC: GILAB 11:31
PROVIDERS: Radiology Diagnostic Radiology; PCP Family Medicine; Visit Provider Internal Medicine Medical Oncology
PROC: (CPT 32554; principal; 2025-05-11 13:00)
DX: J90 Pleural effusion, not elsewhere classified (principal)
CPT/HCPCS: 32555; 71045

== ENCOUNTER 2025-05-23 18:50 | Emergency (ER) | payer MEDICARE, MEDICAID, SELFPAY ==
[2025-05-23] VITALS (11 sets, daily range): BP systolic 99–149; BP diastolic 61–82; PULSE 92–95; RESP 17–20; TEMP 36.4; O2SAT 94–98; BMI 45.8
--- OUTSIDE RECORDS SUMMARY | 2025-05-23 18:59 | XMS_ITS | Clinical Summary ---
Author Organization [facility] Address [address] [place]: Epic Prelude ADT REJI ZAMBRANO [address] Care Team Providers Care Information And Referral Director Name Role Phone Danni Jesus MD Primary [...] on file Legal Sex Female 1:51 PM VISUAL COORDINATOR Gender Identity Not on file Sexual Orientation Not on file Last Filed Vital Signs Vital Sign Reading Time Taken Comments Blood Pressure 137/63 07/12/2014 7:43 PM VISUAL COORDINATOR Pulse 81 07/12/2014 7:43 PM VISUAL COORDINATOR Temperature 36.8 C (98.2 F) 07/12/2014 5:00 PM VISUAL COORDINATOR Respiratory Rate 19 07/12/2014 7:43 PM VISUAL COORDINATOR Oxygen Saturation - - Inhaled Oxygen Concentration - - Weight 119.7 kg (264 lb) 07/12/2014 5:00 PM VISUAL COORDINATOR Height 157.5 cm (5' 2 ) 07/12/2014 5:00 PM VISUAL COORDINATOR Body Mass Index 48.29 07/12/2014 5:00 PM VISUAL COORDINATOR Plan of Treatment Health Maintenance Due Date Last Done Comments DTAP/TDAP/TD VACCINES (1 - Tdap) 01/06/1968 PNEUMOCOCCAL VACCINE 50+ YEARS (1 of 1 - PCV) 01/05/19 99 ZOSTER VACCINE (1 of 2) 1999 OSTEOPOROSIS SCREENING 2014 RSV VACCINE (60+ or ) (1 - 1-dose 75+ series) 01/06/2024 INFLUENZA VACCINE (#1) 2025 Care Teams Information And Referral Director Relationship Specialty Start Date End Date Danni Jesus MD [address] [place] [address] PCP - General Family Practice 07/12/14
--- OUTSIDE RECORDS SUMMARY | 2025-05-23 18:59 | XMS_ITS | Clinical Summary ---
Author Organization [facility] Address [address] [place] [address] Care Team Providers Care Material Handling Warehouse Supervisor Name Role Phone Danni Jesus MD Primary [...] on file Legal Sex Female 1:08 PM PIT LABORER Gender Identity Not on file Sexual Orientation Not on file Last Filed Vital Signs Vital Sign Reading Time Taken Comments Blood Pressure 137/63 07/12/2014 7:43 PM PIT LABORER Pulse 81 07/12/2014 7:43 PM PIT LABORER Temperature 36.8 C (98.2 F) 07/12/2014 5:00 PM PIT LABORER Respiratory Rate 19 07/12/2014 7:43 PM PIT LABORER Oxygen Saturation 96% 07/12/2014 7:43 PM PIT LABORER Inhaled Oxygen Concentration - - Weight 119.7 kg (264 lb) 07/12/2014 5:00 PM PIT LABORER Height 157.5 cm (5' 2 ) 07/12/2014 5:00 PM PIT LABORER Body Mass Index 48.29 07/12/2014 5:00 PM PIT LABORER Plan of Treatment Health Maintenance Due Date Last Done Comments DTAP/TDAP/TD VACCINES (1 - Tdap) 01/06/1968 PNEUMOCOCCAL VACCINE 50+ YEARS (1 of 1 - PCV) 01/05/19 99 ZOSTER VACCINE (1 of 2) 1999 OSTEOPOROSIS SCREENING 2014 RSV VACCINE (60+ or ) (1 - 1-dose 75+ series) 01/06/2024 INFLUENZA VACCINE (#1) 2025 Insurance MEDICARE PART A AND B [employer] Care Teams Material Handling Warehouse Supervisor Relationship Specialty Start Date End Date Danni Jesus MD [address] [place] [address] PCP - General Family Practice 07/12/14
--- NOTE | 2025-05-23 19:14 | CTR_ITS ---
PROCEDURE INFORMATION: Exam: CT Abdomen And Pelvis With Contrast Exam date and time: 05/23/2025 7:42 PM Age: 75 years old Clinical indication: Nausea and vomiting; Abdominal pain; Generalized; Prior surgery; Surgery date: 6+ months; Surgery type: Gb. Appy. Ivc filter. Diffuse abd pain with n/v. On active chemotherapy for ovarian cancer. ; Additional info: Abd pain, vomiting, HX cancer TECHNIQUE: Imaging protocol: Computed tomography of the abdomen and pelvis with contrast. Total images: 484 Radiation optimization: All CT scans at this facility use at least one of these dose optimization techniques: automated exposure control; mA and/or kV adjustment per patient size (includes targeted exams where dose is matched to clinical indication); or iterative reconstruction. Contrast material: OMNI 350; Contrast volume: 100 ml; Contrast route: INTRAVENOUS (IV); COMPARISON: 1. CT abdomen pelvis wo con [id number] 04/29/2025 2:14 PM 2. PT PET skull to thigh INIT [id number] 03/27/2025 4:10 PM RADIATION DOSE METRICS: Total DLP (mGy-cm): 1164.11 FINDINGS: Lungs: Left base compressive atelectasis. Right base no focal alveolar infiltrate. No right-sided pleural effusion. Pleural spaces: Left pleural effusion which is at least partially loculated. Heart: Mitral valve annulus calcification. Aortic valve calcification is present, often associated with aortic stenosis. Diaphragm: Small hiatal hernia. Liver: Liver diffusely increased fat content/fatty infiltration. No focal hepatic lesions identified; subtle or isoattenuating/isointense lesions may be obscured. Gallbladder and biliary ducts: Cholecystectomy accounts for surgical clips in gallbladder fossa. No biliary tree dilation or retained stones appreciated. Pancreas: Pancreas of normal thickness and contour. Spleen: Spleen normal in size and contour. No focal splenic mass identified. Adrenal glands: Adrenal glands are normal. Kidneys and ureters: Right kidney nonobstructing calculi (x3) measuring as large as 6 mm diameter, including a 4 mm diameter calculus within the dilated left extrarenal pelvis. No ureterectasis. Left kidney of normal-size and contour without perinephric induration with no left renal mass stone or hydronephrosis. Ureters demonstrate no distal ureteral calculi. Stomach and bowel: The stomach is grossly abnormal demonstrating eccentric gastric wall thickening with multiple gastric wall masses measuring up to 4.6 cm diameter (sagittal, series 7, image 32) and a trans gastric mass measuring 4.2 cm at the greater curvature (coronal, series 6, image 57), findings which could be perhaps more completely evaluated with CT following the administration of water-soluble oral contrast. Small volume of stool throughout the course of the nondistended colon. No pathologic bowel distension or bowel wall thickening. Appendix: Appendix is not confidently visualized; however, no regional inflammatory changes are seen in the expected location of the appendix. Intraperitoneal space: Moderate volume of low-density, nonhemorrhagic peritoneal ascitic fluid. Dependent pelvic peritoneal implants involving an aggregate area of approximately 8.0 x 5.0 x 7.5 cm (series 4, image 73; series 6, image 32; series 7, image 49). Additional left upper anterior abdominal wall peritoneal implants are likely. Retroperitoneal space: Incidental retroperitoneal pelvic phleboliths. Vasculature: Scattered atherosclerotic vascular calcifications. Ventral abdominal wall varices. No major vessel hemodynamically significant narrowing, occlusion, or aneurysm. Lymph nodes: Nonspecific prominent lymph nodes adjacent to the distal esophagus (series 4, image 13) measuring up to 1.3 cm short axis. Enlarged 2.0 cm lymph node in the region of the gastrosplenic ligament (series 4, image 25). Prominent perigastric pathologic lymph nodes. Urinary bladder: Bladder suboptimal distension limits evaluation likely accounting for uniform bladder wall thickening, unremarkable as visualized. Reproductive: Uterus is anteverted, demonstrating markedly heterogeneous myometrial echotexture as well as multiple punctate uterine calcifications. Bones/joints: IVC filter well-positioned; struts intact; no significant tilt, migration, fracture, penetration, or thrombus. Pubic symphysis mild degenerative changes (osteitis pubis). Bilateral hip mild degenerative change. Sacroiliac joint degenerative manifestations. Moderate generalized degenerative changes of the vertebral column, including multilevel osteophytes, degenerative disc height loss, and facet arthrosis, consistent with patient age. No intrinsic osseous abnormality identified. Soft tissues: Diffuse soft tissue edema; suspicious for anasarca. Generalized mild bony proliferative enthesopathy of multiple tendon and ligament insertions, nonspecific. CT/CT abdomen pelvis w con* [id number] IMPRESSION: 1. Abnormal stomach demonstrating transmural masses measuring up to 4.6 cm diameter and extensive gastrosplenic ligament. As clinically appropriate, consider gastroenterology consultation and upper endoscopy for direct visualization or/and biopsy if clinically warranted. Repeat study with oral contrast may be clinically appropriate. 2. Dependent pelvic peritoneal implants involving an aggregate area of approximately 8.0 x 5.0 x 7.5 cm (series 4, image 73; series 6, image 32; series 7, image 49). Additional left upper anterior abdominal wall peritoneal implants are likely. Pathologically enlarged perigastric lymph nodes measuring up to 3.1 cm diameter and periesophageal lymph node just below the hiatus. Moderate volume of low-density nonhemorrhagic peritoneal fluid. 3. Left low-density pleural effusion which is at least partially loculated. 4. Left base compressive atelectasis. 5. Right kidney nonobstructing calculi (x3) measuring as large as 6 mm diameter, including a 4 mm diameter calculus within the dilated left extrarenal pelvis. 6. Diffuse soft tissue edema; suspicious for anasarca. 7. Moderate age-appropriate degenerative spinal changes. Other chronic/non-acute findings as described above. COMMENTS: For patients with an IVC filter, recommend assessment for a management plan for the patient's IVC filter. If there is no established management plan, recommend referral to an interventional clinician on a nonemergent basis for evaluation.
[2025-05-23] MEDS: iohexol 350 mg/mL 500 mL Btl (per mL) 100 ML IV (19:45)
[2025-05-23 19:47] LABS: Hematocrit 32.4 % (36-47); Hemoglobin 9.50 g/dL (11.27-16.99); Mean Corpuscular HGB Conc 29.3 g/dL (30-55); Mean Corpuscular Hemoglobin 25.6 pg (27-33); Mean Corpuscular Volume 87.3 fl (85-98); Nucleated Red Blood Cells % 0 %; Platelet Count 135 10^3/cmm (157-399); Red Blood Count 3.71 10^6/uL (3.85-5.65); White Blood Count 11.49 10^3/uL (3.29-11.43)
[2025-05-23 20:05] LABS: Lactic Sepsis W/Reflex 1.5 mmol/L (0.5-2.2)
[2025-05-23 20:06] LABS: Alanine Aminotransferase < 5 U/L (0-33); Albumin Level 3.0 g/dL (3.5-5.2); Alkaline Phosphatase 97 U/L (35-105); Anion Gap 17.2 (5-19); Aspartate Amino Transferase 13 U/L (0-32); Blood Urea Nitrogen 16 mg/dL (8-23); Calcium 8.4 mg/dL (8.5-10.5); Carbon Dioxide 21 mmol/L (22-29); Chloride 101 mmol/L (98-107); Globulin 2.9 g/dL (1.3-4.6); Glucose 122 mg/dL (65-115); Lipase 32 U/L (13-60); Osmolality Calculated 282 mOsm/kg (285-295); Potassium 4.2 mmol/L (3.5-5.1); Sodium 135 mmol/L (136-145); Total Protein 5.9 g/dL (6.6-8.7)
[2025-05-23 20:10] LABS: Slide Review Slide Review Perform
[2025-05-23] MEDS: morphine 4 mg/mL SDV 1 mL 2 MG IVP (20:12)
[2025-05-23] MEDS: ondansetron 2 mg/ML SDV 2 mL 4 MG IVP (20:13)
[2025-05-23 21:26] LABS: Coronavirus 229E,HKU1,NL63,OC4 Not Detected (NOT DETECT); Parainfluenza Virus Type 1 Not Detected (NOT DETECT); Parainfluenza Virus Type 2 Not Detected (NOT DETECT); Parainfluenza Virus Type 3 Not Detected (NOT DETECT); Parainfluenza Virus Type 4 Not Detected (NOT DETECT); SARS-COV-2 Not Detected (NOT DETECT)
--- NOTE | 2025-05-23 22:40 | W.ED.WEAKNES ---
HPI - Weakness General: Chief complaint: Weakness Stated complaint: weakness Time Seen by Provider: 05/23/25 18:54 History of Present Illness: Patient is a 75-year-old female presenting with acute onset of diarrhea and vomiting. She reports having diarrhea throughout the day with inability to retain fluids or food. Patient states she attempted to eat some cereal and rice pudding around 6:00 AM, after which she took her medications. Shortly thereafter, she experienced urgent diarrhea that required her to stay in the bathroom for an extended period. She later developed vomiting, stating 'it just comes right out of me.' Patient denies abdominal pain at present and reports no known fever. She mentions taking ibuprofen but is unsure if it was effective due to her gastrointestinal symptoms. Of significant note, the patient started chemotherapy this past Sunday (5 days ago) for recently diagnosed ovarian cancer and another abdominal malignancy described as 'on top of my tummy.' Patient reports a mild cough over the past week but denies significant respiratory symptoms. Related Data Home Medications ?Medication ?Instructions ?Recorded ?Confirmed magnesium 200 mg tablet 400 mg PO DAILY 04/14/21 05/19/25 calcium carbonate (Calcium 600) 600 mg PO DAILY 03/11/25 05/19/25 [id number] ac 400 1 tab PO DAILY 03/11/25 05/19/25 mcg-calcium carb 500 mg-vit K1 20 mcg tablet turmeric 400 mg capsule 400 mg PO DAILY 03/11/25 05/19/25 Previous Rx's ?Medication ?Instructions ?Recorded escitalopram oxalate 10 mg tablet 10 mg PO DAILY #30 tabs 02/24/25 (Lexapro) ondansetron 4 mg disintegrating 4 mg PO Q6H PRN nausea and 03/12/25 tablet vomiting #30 tabs apixaban 5 mg tablet (Eliquis) 5 mg PO BID #60 tabs 03/23/25 oxycodone-acetaminophen 7.5 mg-325 1 tab PO Q8H PRN pain 30 days #60 05/05/25 mg tablet (Percocet) tabs lidocaine-prilocaine 2.5 %-2.5 % 1 applic topical .COMPLEX #30 grams 05/19/25 topical cream prochlorperazine maleate 10 mg 10 mg PO Q6H PRN nausea and 05/19/25 tablet (Compazine) vomiting 30 days #120 tabs Allergies Allergy/AdvReac Type Severity Reaction Status Date / Time adhesive tape Allergy rash Verified 05/23/25 18:55 codeine Allergy Seizures Verified 05/23/25 18:55 Penicillins Allergy Rash Verified 05/23/25 18:55 PFS ED PFSH: Medical History (Updated 05/23/25 @ 22:44 by Gregorio Haley DO) care home (current) use of anticoagulants Fatty liver Fatigue Hyperlipidemia Elevated C-reactive protein (CRP) Factor 5 Leiden mutation, heterozygous Trigeminal neuralgia of right side of face Surgical History History of brain surgery Trigeminal neuralgia repair of right side of face--non aggressive procedure History of appendectomy History of cholecystectomy Hx of breast surgery removal of a cyst-right side Hx of removal of cyst right calf Status post revision of total replacement of left knee Family History Mother Bleeding disorder factor 5 CAD (coronary artery disease) Cancer unsure but thinks it was UTERINE CANCER Stroke mini strokes Father Cancer Lung Hypertension Denies family history of Diabetes Clotting disorder Hyperlipidemia Chronic kidney disease (CKD) Thyroid disease Social History Smoking and tobacco/nicotine status: never used tobacco/nicotine Quit status (tobacco/nicotine): has quit using Year quit tobacco: 1970 Second hand smoke exposure: Yes Alcohol intake: current Alcohol intake frequency: holidays/special occasions only Substance/Drug Use: never Physical Exam Const: GENERAL APPEARANCE: cooperative, ill appearing (Mildly) and frail appearing (Mildly) HENMT: COMMON NORMALS: normocephalic, atraumatic and Normal external nose present HEAD & SCALP: normocephalic and atraumatic FACE & SINUS: normal facial exam and face symmetric NOSE: Normal external nose present Eye: COMMON NORMALS: Equal, round and reactive pupils present and EOMs intact bilaterally PUPIL: Yes Equal, round and reactive pupils present Neck/C-Spine: GENERAL: Yes trachea midline Chest: CHEST: Yes Symmetrical chest wall rise Resp: COMMON NORMALS: normal respiratory effort, No retractions, No use of accessory muscles and clear to auscultation bilaterally AUSCULTATION: clear to auscultation bilaterally Cardio: COMMON NORMALS: regular rate and regular rhythm RATE: regular rate RHYTHM: regular rhythm GI: COMMON NORMALS: Normal to inspection, nondistended, normoactive bowel sounds present Extremity: COMMON NORMALS: no pedal edema Neuro: SERINA COMA SCALE: document GCS findings Serina coma scale eye opening: Spontaneous Jensen coma scale verbal response: Orientated Jensen coma scale motor response: Obey commands Jensen coma scale total score: 15 SENSORY EXAM: Yes extremities (intact) Psych: COMMON NORMALS: speech normal SPEECH: Yes normal speech Skin: COMMON NORMALS: no rashes or lesions noted GENERAL SKIN EXAM: no rashes or lesions noted Course Vital Signs: Vital signs: Vital Signs Temperature 97.5 F L 05/23/25 18:48 Pulse Rate 93 05/24/25 00:00 Respiratory Rate 17 05/23/25 23:59 Blood Pressure 119/62 05/24/25 00:00 Pulse Oximetry 98 05/24/25 00:00 Oxygen Delivery Me thod Room Air 05/23/25 19:53 MDM - Weakness Medical Decision Making Vitals been stable here. She is afebrile. White blood cell count is 11.5. Hemoglobin is 11.5 which is stable from prior. Platelet count is 135, which is mild decrease since starting her chemotherapy. BMP is not remarkable. Liver enzymes are nonactionable. Respiratory panel shows no detectable virus. Lipase is 32. CRP is 69. Lactic acid is 1.5. She was fluid resuscitated with a liter here. She was given Zofran. And some pain medication for belly pain. She feels better. She is feeling improved after liter of fluid. She is walked in the ER. She was given the option of observation admission for continued fluid support, etc., but wishes to go home. Her son is here and wants to take her home as well. Symptomatic treatment. She will return for any problems. This is likely chemotherapy related. Lab Data 05/23/25 19:34 05/23/25 19:34 Radiology Impressions Abdomen/Pelvis CT 05/23/25 19:14 IMPRESSION: 1. Abnormal stomach demonstrating transmural masses measuring up to 4.6 cm diameter and extensive gastrosplenic ligament. As clinically appropriate, consider gastroenterology consultation and upper endoscopy for direct visualization or/and biopsy if clinically warranted. Repeat study with oral contrast may be clinically appropriate. 2. Dependent pelvic peritoneal implants involving an aggregate area of approximately 8.0 x 5.0 x 7.5 cm (series 4, image 73; series 6, image 32; series 7, image 49). Additional left upper anterior abdominal wall peritoneal implants are likely. Pathologically enlarged perigastric lymph nodes measuring up to 3.1 cm diameter and periesophageal lymph node just below the hiatus. Moderate volume of low-density nonhemorrhagic peritoneal fluid. 3. Left low-density pleural effusion which is at least partially loculated. 4. Left base compressive atelectasis. 5. Right kidney nonobstructing calculi (x3) measuring as large as 6 mm diameter, including a 4 mm diameter calculus within the dilated left extrarenal pelvis. 6. Diffuse soft tissue edema; suspicious for anasarca. 7. Moderate age-appropriate degenerative spinal changes. Other chronic/non-acute findings as described above. COMMENTS: For patients with an IVC filter, recommend assessment for a management plan for the patient's IVC filter. If there is no established management plan, recommend referral to an interventional clinician on a nonemergent basis for evaluation. Laboratory Results WBC 11.49 10^3/uL (3.29-11.43) H 05/23/25 19:34 RBC 3.71 10^6/uL (3.85-5.65) L 05/23/25 19:34 Hgb 9.50 g/dL (11.27-16.99) L 05/23/25 19:34 Hct 32.4 % (36-47) L 05/23/25 19:34 MCV 87.3 fl (85-98) 05/23/25 19:34 MCH 25.6 pg (27-33) L 05/23/25 19:34 MCHC 29.3 g/dL (30-55) L 05/23/25 19:34 RDW 17.8 % (12.1-15.1) H 05/23/25 19:34 Plt Count 135 10^3/cmm (157-399) L 05/23/25 19:34 MPV 10.8 fL (7.4-10.4) H 05/23/25 19:34 Neut % (Auto) 86.7 % 05/23/25 19:34 Lymph % (Auto) 1.9 % 05/23/25 19:34 [place] % (Auto) 0.5 % 05/23/25 19:34 Eos % (Auto) 2.1 % 05/23/25 19:34 Baso % (Auto) 0.8 % 05/23/25 19:34 Neut # (Auto) 9.96 10^3/uL (1.8-7.7) H 05/23/25 19:34 Lymph # (Auto) 0.2 10^3/uL (0.8-4.8) L 05/23/25 19:34 [place] # (Auto) 0.1 10^3/uL (0.2-0.9) L 05/23/25 19:34 Eos # (Auto) 0.2 10^3/uL (0.0-0.8) 05/23/25 19:34 Baso # (Auto) 0.1 10^3/uL (0.0-0.1) 05/23/25 19:34 Nucleated RBC % (auto) 0 % 05/23/25 19:34 Nucleated RBCs # 0.0 /100WBC 05/23/25 19:34 Sodium 135 mmol/L (136-145) L 05/23/25 19:34 Potassium 4.2 mmol/L (3.5-5.1) 05/23/25 19:34 Chloride 101 mmol/L (98-107) 05/23/25 19:34 Carbon Dioxide 21 mmol/L (22-29) L 05/23/25 19:34 Anion Gap 17.2 (5-19) 05/23/25 19:34 BUN 16 mg/dL (8-23) 05/23/25 19:34 Creatinine 0.7 mg/dL (0.5-0.9) 05/23/25 19:34 GFR Calculation Not Reportable 05/23/25 19:34 Glucose 122 mg/dL (65-115) H 05/23/25 19:34 Calculated Osmolality 282 mOsm/kg (285-295) L 05/23/25 19:34 Lactic Acid 1.5 mmol/L (0.5-2.2) 05/23/25 19:34 Calcium 8.4 mg/dL (8.5-10.5) L 05/23/25 19:34 Total Bilirubin 0.6 mg/dL (0.15-1.2) 05/23/25 19:34 AST 13 U/L (0-32) 05/23/25 19:34 ALT < 5 U/L (0-33) 05/23/25 19:34 Alkaline Phosphatase 97 U/L (35-105) 05/23/25 19:34 C-Reactive Protein 69.3 mg/L (0.0-4.9) H 05/23/25 19:34 Total Protein 5.9 g/dL (6.6-8.7) L 05/23/25 19:34 Albumin 3.0 g/dL (3.5-5.2) L 05/23/25 19:34 Globulin 2.9 g/dL (1.3-4.6) 05/23/25:34 Lipase 32 U/L (13-60) 05/23/25 19:34 Urine Color Yellow (Yellow) 05/23/25 22:53 Urine Appearance Clear (CLEAR) 05/23/25 22:53 Urine pH 5.0 (5-7) 05/23/25 22:53 Ur Specific [place] 1.045 (1.005-1.030) H 05/23/25 22:53 Urine Protein Negative (Negative) 05/23/25 22:53 Urine Glucose (UA) Negative (Normal) 05/23/25 22:53 Urine Ketones Negative (Negative) 05/23/25 22:53 Urine Blood Non-haemolysed trace (Negative) 05/23/25 22:53 Urine Nitrate Positive (Negative) A 05/23/25 22:53 Urine Bilirubin Negative (Negative) 05/23/25:53 Urine Urobilinogen 0.2 mg/dL (Negative) 05/23/25 22:53 Ur Leukocyte Esterase Negative (Negative) 05/23/25 22:53 Amorphous Sediment Not Reportable 05/23/25 22: Adenovirus (PCR) Not detected (NOT DETECT) 05/23/25: C. pneumoniae DNA (PCR) Not detected (NOT DETECT) 05/23/25: Coronavirus 229E (PCR) Not detected (NOT DETECT) 05/23/25: Human Metapneumovir PCR Not detected (NOT DETECT) 05/23/25: Influenza A (H1) PCR Not detected (NOT DETECT) 05/23/25: Influ A (H1/09) PCR Not detected (NOT DETECT) 05/23/25 19: Influenza A (H3) PCR Not detected (NOT DETECT) 05/23/25 19: Influenza Type A (PCR) Not detected (NOT DETECT) 05/23/25 19: Influenza Type B (PCR) Not detected (NOT DETECT) 05/23/25 19: M. pneumoniae (PCR) Not detected (NOT DETECT) 05/23/25 19: Parainfluenza 1 (PCR) Not detected (NOT DETECT) 05/23/25 19: Parainfluenza 2 (PCR) Not detected (NOT DETECT) 05/23/25 19: Parainfluenza 3 (PCR) Not detected (NOT DETECT) 05/23/25 19: Parainfluenza 4 (PCR) Not detected (NOT DETECT) 05/23/25 19: RSV Type A (PCR) Not detected (NOT DETECT) 05/23/25 19: RSV Type B (PCR) Not detected (NOT DETECT) 05/23/25 19: Entero/Rhino (PCR) Not detected (NOT DETECT) 05/23/25 19: SARS-CoV-2 (PCR) Not detected (NOT DETECT) 05/23/25 19: All radiology interpretation(s) finalized by discharge Discharge Plan Discharge Patient Disposition: Home Clinical Impression: Gastric cancer, Diarrhea Condition: Stable Prescriptions: No Action magnesium 200 mg tablet 400 mg PO DAILY escitalopram oxalate [Lexapro] 10 mg tablet 10 mg PO DAILY Qty: 30 11RF ondansetron 4 mg tablet,disintegrating 4 mg PO Q6H PRN (Reason: nausea and vomiting) Qty: 30 3RF Eliquis 5 mg tablet 5 mg PO BID Qty: 60 3RF prochlorperazine maleate [Compazine] 10 mg tablet 10 mg PO Q6H PRN (Reason: nausea and vomiting) 30 Days Qty: 120 2RF lidocaine-prilocaine 2.5-2.5 % cream 1 applic topical .COMPLEX Qty: 30 0RF Rx Instructions: 1 applic topically 30 min prior to port access, apply quarter-sized amount to top of port and cover with saran wrap; oxycodone-acetaminophen [Percocet] 7.5-325 mg tablet 1 tab PO Q8H PRN (Reason: pain) 30 Days Qty: 60 0RF calcium carbonate [Calcium 600] 600 mg calcium (1,500 mg) Tablet 600 mg PO DAILY One-A-Day Women's 50 Plus 400 mcg-500 mg calcium-20 mcg Tablet 1 tab PO DAILY turmeric 400 mg Capsule 400 mg PO DAILY Discharge Orders: Discharge ED (Routine); Ordered 05/23/25 Ordered By: Gregorio Haley Referrals: Niko Lomax MD [Primary Care Provider, Family Practice] Patient Instructions: Acute Diarrhea (ED), Opioid Safety, Pain Management, Patient Portal & Rosie Instructions Activity Restrictions/Additional Instructions: Return for fever greater than 100.4, vomiting liquids or medications despite treatment, continued uncontrolled diarrhea, any other concerning symptoms. Follow-up with your doctor as scheduled. Print Language: Tajik Coding Level of Care Code ED [employer] for Lakesha Kendrick
[2025-05-23 22:56] LABS: Add Urine Microscopic? NO
[2025-05-23 22:58] LABS: Glucose Urine UA Negative (Normal); Nitrate Urine Positive (Negative)
[2025-05-23 23:17] LABS: Specific Gravity, Urine 1.045 (1.005-1.030)
[2025-05-23 23:18] LABS: Charge for UA Resulting for Rev
[2025-05-23] MEDS: oxyCODONE-APAP 5-325 mg Tablet 2 TAB PO (23:59)
[2025-05-24] VITALS: BP 119/62; PULSE 93; O2SAT 98
== END 2025-05-24 00:01 | disposition home or self-care (01) ==
PROVIDERS: Emergency Provider Emergency Medicine; PCP Family Medicine
DX: R19.7 Diarrhea, unspecified (principal); C18.9 Malignant neoplasm of colon, unspecified; Z79.01 Long term (current) use of anticoagulants; Z11.52 Encounter for screening for COVID-19; Z85.43 Personal history of malignant neoplasm of ovary; E78.5 Hyperlipidemia, unspecified; Z87.891 Personal history of nicotine dependence
CPT/HCPCS: 36415; 74177; 80053; 81003; 83605; 83690; 85025; 86140; 87040; 87486; 87581; 87633; 96361; 96374; 96375; 99285; J2270; J2405; J7030; J9999; Q0162; Q9967

== ENCOUNTER 2025-06-10 08:30 | Oncology outpatient (recurring) (ONCR) | payer MEDICARE, SELFPAY ==
[2025-05-19 08:22] LABS: Hematocrit 31.2 % (36-47); Hemoglobin 9.40 g/dL (11.27-16.99); Mean Corpuscular HGB Conc 30.1 g/dL (30-55); Mean Corpuscular Hemoglobin 25.4 pg (27-33); Mean Corpuscular Volume 84.3 fl (85-98); Nucleated Red Blood Cells % 0 %; Platelet Count 280 10^3/cmm (157-399); Red Blood Count 3.70 10^6/uL (3.85-5.65); White Blood Count 8.43 10^3/uL (3.29-11.43)
[2025-05-19 08:51] LABS: Alanine Aminotransferase < 5 U/L (0-33); Albumin Level 2.7 g/dL (3.5-5.2); Alkaline Phosphatase 88 U/L (35-105); Anion Gap 17.3 (5-19); Aspartate Amino Transferase 9 U/L (0-32); Blood Urea Nitrogen 12 mg/dL (8-23); CA 125 955.7 U/mL (0-35); Calcium 8.5 mg/dL (8.5-10.5); Carbon Dioxide 21 mmol/L (22-29); Chloride 102 mmol/L (98-107); Globulin 3.4 g/dL (1.3-4.6); Glucose 128 mg/dL (65-115); Osmolality Calculated 283 mOsm/kg (285-295); Potassium 4.3 mmol/L (3.5-5.1); Sodium 136 mmol/L (136-145); Total Protein 6.1 g/dL (6.6-8.7)
[2025-05-19 09:10] LABS: Magnesium 1.7 mg/dL (1.7-2.3)
[2025-05-19] MEDS: diphenhydrAMINE 50 mg/mL SDV 1mL 25 MG IVP (11:05)
[2025-05-19] MEDS: [UNRECOGNIZED DRUG - REMARK] 187.22 MG IV (12:55)
[2025-05-19] MEDS: CARBOplatin 510 MG in sodium chloride 0.9% 500 ML 551 MG IV (16:29)
[2025-05-19] MEDS: pegfilgrastim 6 mg/0.6 mL Kit (onpro) SUBCUT (17:47)
[2025-05-19 18:01] VITALS: BP 114/64; PULSE 88; RESP 16; TEMP 36.4; O2SAT 98
[2025-05-26 08:47] LABS: Hematocrit 28.4 % (36-47); Hemoglobin 8.60 g/dL (11.27-16.99); Mean Corpuscular HGB Conc 30.3 g/dL (30-55); Mean Corpuscular Hemoglobin 25.9 pg (27-33); Mean Corpuscular Volume 85.5 fl (85-98); Nucleated Red Blood Cells % 0 %; Platelet Count 127 10^3/cmm (157-399); Red Blood Count 3.32 10^6/uL (3.85-5.65); White Blood Count 1.44 10^3/uL (3.29-11.43)
[2025-05-26 09:11] LABS: Alanine Aminotransferase < 5 U/L (0-33); Albumin Level 2.8 g/dL (3.5-5.2); Alkaline Phosphatase 67 U/L (35-105); Anion Gap 13.7 (5-19); Aspartate Amino Transferase 10 U/L (0-32); Blood Urea Nitrogen 10 mg/dL (8-23); Calcium 7.9 mg/dL (8.5-10.5); Carbon Dioxide 23 mmol/L (22-29); Chloride 105 mmol/L (98-107); Globulin 2.2 g/dL (1.3-4.6); Glucose 113 mg/dL (65-115); Osmolality Calculated 286 mOsm/kg (285-295); Potassium 3.7 mmol/L (3.5-5.1); Sodium 138 mmol/L (136-145); Total Protein 5.0 g/dL (6.6-8.7)
[2025-05-26 11:48] VITALS: BP 126/75; PULSE 87; RESP 17; TEMP 36.2; O2SAT 98
[2025-05-26 13:03] VITALS: BP 127/77; PULSE 83; RESP 17; TEMP 36.1; O2SAT 99
[2025-06-02 08:49] LABS: Hematocrit 28.3 % (36-47); Hemoglobin 8.60 g/dL (11.27-16.99); Mean Corpuscular HGB Conc 30.4 g/dL (30-55); Mean Corpuscular Hemoglobin 26.7 pg (27-33); Mean Corpuscular Volume 87.9 fl (85-98); Nucleated Red Blood Cells % 0 %; Platelet Count 141 10^3/cmm (157-399); Red Blood Count 3.22 10^6/uL (3.85-5.65); White Blood Count 6.46 10^3/uL (3.29-11.43)
[2025-06-02 09:07] LABS: Alanine Aminotransferase 6 U/L (0-33); Albumin Level 2.8 g/dL (3.5-5.2); Alkaline Phosphatase 89 U/L (35-105); Anion Gap 11.4 (5-19); Aspartate Amino Transferase 14 U/L (0-32); Blood Urea Nitrogen 9 mg/dL (8-23); Calcium 7.8 mg/dL (8.5-10.5); Carbon Dioxide 25 mmol/L (22-29); Chloride 106 mmol/L (98-107); Globulin 2.4 g/dL (1.3-4.6); Glucose 101 mg/dL (65-115); Magnesium 1.4 mg/dL (1.7-2.3); Osmolality Calculated 287 mOsm/kg (285-295); Potassium 3.4 mmol/L (3.5-5.1); Sodium 139 mmol/L (136-145); Total Protein 5.2 g/dL (6.6-8.7)
[2025-06-09 09:01] LABS: Hematocrit 25.7 % (36-47); Hemoglobin 7.60 g/dL (11.27-16.99); Mean Corpuscular HGB Conc 29.6 g/dL (30-55); Mean Corpuscular Hemoglobin 26.3 pg (27-33); Mean Corpuscular Volume 88.9 fl (85-98); Nucleated Red Blood Cells % 0 %; Platelet Count 280 10^3/cmm (157-399); Red Blood Count 2.89 10^6/uL (3.85-5.65); White Blood Count 6.55 10^3/uL (3.29-11.43)
[2025-06-09 09:30] LABS: Carcinoembryonic Antigen 0.9 ng/mL (0.0-4.7)
[2025-06-09 09:42] LABS: Alanine Aminotransferase 7 U/L (0-33); Albumin Level 2.9 g/dL (3.5-5.2); Alkaline Phosphatase 86 U/L (35-105); Anion Gap 15.0 (5-19); Aspartate Amino Transferase 19 U/L (0-32); Blood Urea Nitrogen 8 mg/dL (8-23); Calcium 8.5 mg/dL (8.5-10.5); Carbon Dioxide 24 mmol/L (22-29); Chloride 104 mmol/L (98-107); Globulin 2.9 g/dL (1.3-4.6); Glucose 101 mg/dL (65-115); Magnesium 1.8 mg/dL (1.7-2.3); Osmolality Calculated 286 mOsm/kg (285-295); Potassium 4.0 mmol/L (3.5-5.1); Sodium 139 mmol/L (136-145); Total Protein 5.8 g/dL (6.6-8.7)
[2025-06-09] MEDS: diphenhydrAMINE 50 mg/mL SDV 1mL 25 MG IVP (10:21)
[2025-06-09 10:34] LABS: CA 125 493.3 U/mL (0-35)
[2025-06-09] MEDS: CARBOplatin 510 MG in sodium chloride 0.9% 500 ML 551 MG IV (15:02)
[2025-06-09] MEDS: pegfilgrastim 6 mg/0.6 mL Kit (onpro) SUBCUT (16:13)
[2025-06-09 16:20] VITALS: BP 109/69; PULSE 81; RESP 18; TEMP 35.8; O2SAT 93
[2025-06-10] VITALS (12 sets, daily range): BP systolic 103–133; BP diastolic 62–83; PULSE 85–98; RESP 16–19; TEMP 36.5–36.8; O2SAT 93–98
[2025-06-10] MEDS: FUROsemide 10 mg/mL SDV 2mL 20 MG IVP (12:59)
--- NOTE | 2025-06-10 16:57 | PC.NURSE ---
[address] [place] [address] called to inform us that patient got home and took her shirt off, and while doing so she pulled off the Neulasta Onpro kit that was placed 06/09/2025 on her left upper arm post treatment. Nurse instructed her to bring patient into the clinic for injection and to bring in the Neulasta device with her. Patient arrives and Neulasta 6mg/ 0.6ml withdrawn and given SQ into the left posterior upper arm, after cleansing as required. No complications, patient tolerated well. Bandaid applied. Family assists patient home, via wheelchair.- JERED Lozada
== END 2025-06-10 23:59 | disposition home or self-care (01) ==
PROVIDERS: Internal Medicine Medical Oncology; PCP Family Medicine; Visit Provider Nurse Practitioner
DX: Z53.9 Procedure and treatment not carried out, unspecified reason; D64.9 Anemia, unspecified; Z79.899 Other long term (current) drug therapy; R60.9 Edema, unspecified
CPT/HCPCS: 36430; 36591; 80053; 82378; 83735; 85025; 86304; 86850; 86900; 86920; 96360; 96367; 96372; 96375; 96377; 96413; 96415; 96417; 99214; 99215; J1100; J1200; J1453; J1938; J2469; J2506; J3490; J7030; J7040; J7050; J9045; J9267; J9999; P9016; P9040